=== PATIENT | female | born 1955 | race Caucasian/White ===

== ENCOUNTER 2025-09-23 09:11 | Inpatient (IN) | payer MEDICARE, MEDICAID, SELFPAY ==
[2025-09-23] VITALS (11 sets, daily range): BP systolic 161–199; BP diastolic 76–144; PULSE 90–105; RESP 16–32; TEMP 36.5–37.2; O2SAT 94–99; BMI 28.3
--- NOTE | 2025-09-23 09:13 | EKG_ITS ---
[facility] Test Date: 2025-09-23 Pat Name: CHANTEL GILBERT Department: Room: - Gender: Female Food Service Aide: : 1955 Requested By: Demetri Field Order Number: [id number] Reading MD: Demetri Field Measurements Intervals Jeffers Rate: 92 P: 54 DE: 182 QRS: 7 QRSD: 94 T: -15 QT: 363 QTc: 451 Interpretive Statements SINUS RHYTHM NONSPECIFIC ST & T-WAVE ABNORMALITY No previous ECG available for comparison /store/S0/[id number]/ecg/[id number].pdf
--- NOTE | 2025-09-23 09:13 | XR_ITS ---
Examination: CT brain head without contrast. 2-D sagittal coronal reconstructions Date and time of exam: September 23, 2025, 0918 hours INDICATIONS: Stroke alert, onset focal neurologic deficit including left-sided body weakness generalized weakness this morning CTDI: vol (mGy): 47.9 DLP: (mGycm): 896 Technique: Multiple CT axial sections of the brain have been obtained, 5 mm slice thickness. Contrast has not been administered. 2-D sagittal, coronal reconstructions have been obtained Low dose protocols were performed. One or more of the following dose reduction techniques were used; automated exposure control, adjustment of the mA and/or KV according to patient size, use of iterative reconstruction technique. Findings: No significant ventricular enlargement. Intra-axial or extra-axial hemorrhage density is not seen. No mass effect or midline shift Basal cisterns are not remarkable. Fourth ventricle is midline. Cranial vault intact. Impression: Negative for acute hemorrhage, mass effect or midline shift
--- NOTE | 2025-09-23 09:13 | XR_ITS ---
EXAMINATION: AP chest single view TECHNIQUE: AP portable semiupright chest single view INDICATIONS: Stroke alert this morning FINDINGS: Normal heart size No aspiration pneumonia Mild elevation right hemidiaphragm Moderate osteopenia IMPRESSION: No aspiration pneumonia
--- NOTE | 2025-09-23 09:13 | XR_ITS ---
Examination: CTA carotids with intravenous contrast CTA brain, head with intravenous contrast. 2-D sagittal, coronal reconstructions. 3-D reconstructions. Exam date and time: September 23, 2025, 0928 hours INDICATIONS: Stroke alert this morning, onset focal neurologic deficit including left-sided body weakness generalized weakness CTDI: vol (mGy) 11.7 DLP: (mGycm) 477 Technique: Multiple CTA axial brain, head carotid images post intravenous contrast injection 75 cc, [id number]. 2-D sagittal, coronal reconstructions. 3-D reconstructions, 3-D post processing including vascular maximum intensity projection images. Low dose protocols were performed. One or more of the following dose reduction techniques were used; automated exposure control, adjustment of the mA and/or KV according to patient size, use of iterative reconstruction technique. Findings: Multiple right thyroid nodules, the largest 11 mm, isthmus solid nodule, enlarged right thyroid No significant, carotid carotid bifurcation or internal carotid artery stenoses Dominant left vertebral artery in the neck with no critical stenoses Intracranial vertebral arteries field Basilar artery is attenuated with areas of irregularity but no large vessel occlusion Posterior cerebral branches show irregularity and focal areas of moderate narrowing but no large vessel occlusions Juxtasellar and supraclinoid portions internal carotid arteries intact Left M1 middle cerebral artery segment shows significant areas of irregularity, no large vessel occlusions involving middle cerebral or anterior cerebral arteries IMPRESSION: Right thyromegaly, multiple thyroid nodules No significant neck arterial stenoses Basilar artery is attenuated with areas of irregularity but no large vessel occlusion Left M1 segment middle cerebral artery shows significant areas of irregularity but no large vessel occlusions involving middle cerebral or anterior cerebral artery branches
--- NOTE | 2025-09-23 09:26 | EDNOTE_ITS ---
Neuro Symptoms Deficit-RME/HPI General Chief Complaint: Weakness Stated Complaint: POSSIBLE STROKE Time Seen by Provider: 09/23/25 09:26 Arrival date/time: 09/23/25 09:11 RME / HPI RME / HPI Narrative: See MDM for Dr. Padron's HPI documentation. Related Data Allergies Allergy/AdvReac Type Severity Reaction Status Date / Time No Known Allergies Allergy Verified 09/23/25 09:41 Review of Systems Review of Systems Systems Reviewed: All systems reviewed, normal except as documented Past Medical History Past Medical History MUSCULOSKELETAL: Positive Rheumatoid Arthritis Family History FAMILY HISTORY: Negative Family Cardiac Disorders Surgical History SURGICAL: Negative Endocrine Surgery, Ear Surgery, Abdominal Surgery, Nephrectomy, Joint Replacement or Neurologic Surgery Social History SMOKING STATUS: Never smoker ED Exam Narrative Physical exam: See MDM for Dr. Padron's physical exam documentation. Course Quality Measures Suspected type of Stroke: Non Acute Last known well (date): 09/22/25 Last known well (time): 22:00 Tenecteplase given: Reason(s) TPA not given: Outside the time window not given stroke Orders Category Date Time Status Bedside Blood Glucose NOW Care 09/23/25 09:13 Active Bedside COVID-19 Antigen Test NOW Care 09/23/25 09:14 Active COVID-19 Screening Questionnaire NOW Care 09/23/25 11:17 Active Journeyman Painter NOW Care 09/23/25 09:13 Active Continuous Pulse Oximetry NOW Care 09/23/25 09:13 Completed Decision to Admit X1 Care 09/23/25 11:17 Completed EKG (ED ONLY) *Do not use* NOW Care 09/23/25 09:13 Completed Glucose [Bedside Blood Glucose] NOW Care 09/23/25 10:52 Active In and Out Catheter NEEDED Care 09/23/25 09:13 Active Insert IV NOW Care 09/23/25 09:13 Active NIH Stroke Scale now Care 09/23/25 09:13 Active NPO NOW Care 09/23/25 09:13 Active Nurse Swallow Screen x1 Care 09/23/25 09:13 Active Consult to Neurology / Tele-Neurology Routine Cons 09/23/25 09:[address] angio stroke protocol Stat Exams 09/23/25 09:[address] stroke protocol Stat Exams 09/23/25 09:13 Completed EKG (ED Only) Stat Exams 09/23/25 09:13 Draft XR chest 1V portable Stat Exams 09/23/25 09:13 Completed Alcohol, Blood Medical Stat Lab 09/23/25 09:16 Completed Arterial Blood Gas Stat Lab 09/23/25 10:36 Completed B-Type Natriuretic Peptide Stat Lab 09/23/25 09:16 Completed Beta Hydroxybutyrate Stat Lab 09/23/25 10:40 Completed Blood Culture (Lab) Stat Lab 09/23/25 10:35 Received CBC Stat Lab 09/23/25 09:16 Completed CRP [C-Reactive Protein] Stat Lab 09/23/25 09:16 Completed Comprehensive Metabolic Panel Stat Lab 09/23/25 09:16 Completed Drug Screen,Urine Stat Lab 09/23/25 10:56 Completed ESR [Sed Rate (ESR)] Stat Lab 09/23/25 09:16 Completed Hemoglobin A1C [Glycohemoglobin w (eAG)] Stat Lab 09/23/25 10:40 Completed Influenza A & B Rapid Panel Stat Lab 09/23/25 10:00 Completed Lactate (Lactic Acid) Stat Lab 09/23/25 09:16 Completed Magnesium Stat Lab 09/23/25 09:16 Completed Partial Thromboplastin Time Stat Lab 09/23/25 09:16 Completed Procalcitonin Stat Lab 09/23/25 09:16 Completed Prothrombin Time with INR Stat Lab 09/23/25 09:16 Completed TSH [Thyroid Stimulating Hormone] Stat Lab 09/23/25 09:16 Completed Troponin I Stat Lab 09/23/25 09:16 Completed Urinalysis, C/S if Indicated Stat Lab 09/23/25 10:56 Completed Labetalol IV [Trandate IV] Med 09/23/25 09:13 Discontinued 10 mg IVP Q15M PRN Ondansetron Inj [Zofran Inj] Med 09/23/25 09:13 Active 4 mg IVP Q4HR PRN Sodium Chloride 0.9% 1000 ml [Ns] 1,000 ml Med 09/23/25 09:15 Active IV Q10H Oxygen Delivery NOW RT 09/23/25 09:13 Active Vital Signs Vital signs: Vital Signs Pulse Rate 94 09/23/25 09:18 Respiratory Rate 18 09/23/25 09:18 Blood Pressure 199/76 H 09/23/25 09:18 Pulse Oximetry (%) 97 09/23/25 09:18 Oxygen Delivery Method Room Air 09/23/25 09:18 Fraction of Inspired Oxygen 97 09/23/25 09:18 Pulse ox is 97% on room air which is adequate. Neuro Symptoms / Deficit MDM Narrative MDM Narrative:: This section includes all my notes and documentations, including HPI, PE, and ED course. Demetri Padron MD HPI: 70-year-old female here with possible stroke. History is from the son over the phone. Patient doesn't speak Occitan. Normally, she is not confused and she is ambulatory and independent. Last night, she went to bed around 10 PM normal. This morning about an hour ago (around 8 AM), she called for help because she needed to use the bathroom. But she couldn't get out of bed or stand or walk. He had to carry her to the bathroom. He noted extreme weakness bilaterally and abnormal speech and confusion. ROS: Can't obtain from the patient due to current clinical condition. Physical Exam: General: Appears lethargic. Eyes: Conjunctivae and lids clear. EOMI. PERRL. ENT: No nasal congestion. Neck: Supple. No carotid bruit. No JVD. Heart: RRR. Lungs: No respiratory distress. Decreased air movement. No severe rhonchi, wheezing, rales. Abdomen: Soft and nontender. Legs: No clubbing, cyanosis, edema. Skin: Warm and dry. Neuro: Cranial Nerves II-XII grossly intact. No obvious peripheral motor deficits. Musculoskeletal: All major joints and bones are not tender with no limited ROM. I reviewed EMS notes. I reviewed all diagnostic test results: My interpretation of the EKG is: Sinus rhythm (92 bpm) with nonspecific ST-T changes. My interpretation of the chest x-ray is: NAD My review of the CT head report is: No acute findings My review of the CT head/neck report is: No large vessel occlusion. Blood tests remarkable for ESR 91, Glu 300, lactic acid 6.8. UA showed positive leukocyte esterase, 22 WBC, and 3+ bacteria. ABG showed pH 7.40, pCO2 38, pHCO3 23. Covid/Influenza are negative. At this point, diagnoses include: Stroke-like symptoms UTI Treatment here included: IVF Labetatol 10 mg IV Rocephin 1 gram IV Insulin 5 units SC Heparin 5,000 units SC Plavix 300 mg IV Patient remained stable. I discussed the case with our telehealth neurologist and our hospitalist. About the presentation and exam and diagnostics and treatments here. And need of further care in the hospital. Will accept the patient. Demetri Padron MD Patient data External records reviewed:: EMS form Clinical information provided by:: patient and EMS Social determinants that could affect healthcare access:: none Patient has the following chronic illnesses:: Diabetes How is presenting disease/condition affected by chronic disease/condition?: exacerbated by Evaluation data The following diagnostics were reviewed and interpreted by me:: EKG tracing(s) (My interpretation of the EKG is: Sinus rhythm (92 bpm) with nonspecific ST-T changes. Demetri Padron MD) Lab and/or radiology exams considered but not ordered:: None Interpretation Summary: I reviewed all diagnostic test results: My interpretation of the EKG is: Sinus rhythm (92 bpm) with nonspecific ST-T changes. My interpretation of the chest x-ray is: NAD My review of the CT head report is: No acute findings My review of the CT head/neck report is: No large vessel occlusion. Blood tests remarkable for ESR 91, Glu 300, lactic acid 6.8. UA showed positive leukocyte esterase, 22 WBC, and 3+ bacteria. ABG showed pH 7.40, pCO2 38, pHCO3 23. Covid/Influenza are negative. Medications / Prescriptions Medications or Prescriptions considered but not ordered:: None Medication administrations:: Medication Administration History Acetaminophen (Acetaminophen 325 Mg Tablet) 650 mg PO Q6H PRN PRN Reason: Fever >100.3 or Mild Pain 1-3 Stop: 10/23/25 11:40 Acetaminophen (Acetaminophen Supp 650 Mg Supp) 650 mg [place] Q6H PRN; Protocol PRN Reason: PAIN SCALE 1-3 (mild Stop: 10/23/25 11:40 Aspirin (Aspirin Ec 81 Mg Tabec) 81 mg PO QDAY [facility]NEY Stop: 10/24/25 08:59 Atorvastatin Calcium (Atorvastatin Calcium 20 Mg Tablet) 80 mg PO HS BRITNEY Stop: 10/23/25 20:59 Clopidogrel Bisulfate (Clopidogrel Bisulfate 75 Mg Tablet) 75 mg PO QDAY [facility] Stop: 10/24/25 08:59 Dextrose (Dextrose 50%-Water Inj 50 Ml Syringe) 25 ml IV Q15MIN PRN PRN Reason: BG 50-70 responsive npo pt Stop: 10/23/25 15:32 Dextrose (Dextrose 50%-Water Inj 50 Ml Syringe) 50 ml IV Q15MIN PRN PRN Reason: BG <50 OR BG <70 & pt unresponsive Stop: 10/23/25 15:32 Glucagon (Glucagon Inj 1 Mg Vial) 1 mg IM Q15MIN PRN PRN Reason: BG <70, and no IV access Heparin Sodium (Porcine) (Heparin Sod Inj 5000 Unit/Ml Vial) 5,000 unit SC Q8HR BRITNEY Stop: 10/07/25 13:59 Last Admin: 09/23/25 13:59 Dose: 5,000 unit Documented By: BY Co-signed By: KODY Sodium Chloride (Ns) 1,000 mls @ 100 mls/hr IV Q10H [facility] Stop: 10/23/25 09:14 Last Admin: 09/23/25 09:50 Dose: 100 mls/hr Documented By: SOWMYA Ceftriaxone Sodium/Dextrose (Rocephin/D5w 1gm Iv Premix) 1 gm in 50 mls @ 100 mls/hr IV QDAY [facility] Stop: 10/01/25 08:59 Insulin Human Lispro (Insulin Lispro (Admelog) 1 Unit/0.01 Ml Unit) 0 unit SC ACHS [facility]; Protocol Stop: 10/23/25 16:59 Labetalol HCl (Labetalol Inj 5 Mg/Ml Vial 20 Ml) 10 mg IVP Q4HR PRN PRN Reason: Hypertension Stop: 10/23/25 11:46 Lisinopril (Lisinopril 2.5 Mg Tablet) 10 mg PO QDAY [facility] Stop: 10/24/25 08:59 Ondansetron HCl (Ondansetron Inj 2 Mg/Ml Inj 2 Ml) 4 mg IVP Q4HR PRN PRN Reason: NAUSEA OR VOMITING Stop: 10/23/25 09:12 Pantoprazole Sodium (Pantoprazole 40 Mg Tablet) 40 mg PO QDAY [facility] Stop: 10/24/25 08:59 Sennosides (Senna Tablet) 1 tab PO QDAY PRN; Protocol PRN Reason: constipation Stop: 10/23/25 11:40 Discontinued Medications Clopidogrel Bisulfate (Clopidogrel Bisulfate 75 Mg Tablet) 300 mg PO X1 ONE Stop: 09/23/25 12:05 Last Admin: 09/23/25 14:02 Dose: 300 mg Documented By: BY Ceftriaxone Sodium/Dextrose (Rocephin/D5w 1gm Iv Premix) 1 gm in 50 mls @ 100 mls/hr IV X1 ONE Stop: 09/23/25 12:36 Last Infusion: 09/23/25 12:48 Dose: Infused Documented By: Admin: 09/23/25 12:18 Dose: 100 mls/hr Documented By: BY Lactated Ringer's (Lactated Ringers) 1,000 mls @ 500 mls/hr IV .Q2H ONE Stop: 09/23/25 14:06 Last Infusion: 09/23/25 14:29 Dose: Infused Documented By: Admin: 09/23/25 12:29 Dose: 500 mls/hr Documented By: BY Ceftriaxone Sodium/Dextrose (Rocephin/D5w 1gm Iv Premix) 1 gm in 50 mls @ 100 mls/hr IV QDAY [facility] Stop: 09/30/25 15:30 Insulin Human Lispro (Insulin Lispro (Admelog) 1 Unit/0.01 Ml Unit) 5 unit SC X1 ONE Stop: 09/23/25 11:54 Last Admin: 09/23/25 12:21 Dose: 5 unit Documented By: BY Co-signed By: EF Insulin Human Lispro (Insulin Lispro (Admelog) 1 Unit/0.01 Ml Unit) 0 unit SC AC [facility]NEY; Protocol Stop: 10/23/25 16:59 Insulin Human Regular (Insulin Hum Regular 1 Unit/0.01 Ml (Per Unit)) 0 unit SC AC [facility]NEY; Protocol Stop: 10/23/25 16:59 Labetalol HCl (Labetalol Inj 5 Mg/Ml Vial 20 Ml) 10 mg IVP Q15M PRN PRN Reason: HYPER Last Admin: 09/23/25 10:42 Dose: 10 mg Documented By: BY Lisinopril (Lisinopril 20 Mg Tablet) 10 mg PO QDAY [facility] Stop: 10/23/25 15:44 Last Admin: 09/23/25 16:00 Dose: 10 mg Documented By: BY Treatment here during my watch included: IVF Labetatol 10 mg IV Rocephin 1 gram IV Insulin 5 units SC Heparin 5,000 units SC Plavix 300 mg IV Consultations Consultation(s) initiated? (list below): Yes Consultation #1 (Physician, Specialty, Details): I discussed the case with our telehealth neurologist and our hospitalist. About the presentation and exam and diagnostics and treatments here. And need of further care in the hospital. Will accept the patient. Time: 09:55 Diagnosis Neuro Differential Diagnosis: subarachnoid hemorrhage, cerebrovascular accident and transient cerebral ischemia Most likely diagnosis given after review of the tests above:: Stroke-like symptoms UTI Admission Indicated Admission indicated?: indicated Explain why admission is indicated or not indicated:: Strokelike symptoms UTI Admission Request Was there a request for admission?: Yes Admission Attestation Admission request attestation: Discussed case with Hospitalist service regarding admission. Discussed patients ED course, exam findings, labs, and radiology results. Agreed to accept the patient for admission. Disposition Plan Disposition Plan: Admit Discharge Plan Plan Patient Disposition: Admit Acute Care w/in Hospital Problem List Clinical Impression: Stroke-like symptoms, UTI (urinary tract infection)
[2025-09-23 09:31] LABS: Basophils # (Auto) 0.1 Thou/mm3 (0.0-0.2); Basophils % (Auto) 1 % (0-2.5); Eosinophils # (Auto) 0.3 Thou/mm3 (0.0-0.5); Eosinophils % (Auto) 3 % (0-10); Hematocrit 46.3 % (36.0-46.0); Hemoglobin 14.4 g/dL (12.0-16.0); Immature Granulocytes Auto 0.10 Thou/mm3 (0.00-0.00); Lymphocytes # (Auto) 4.2 Thou/mm3 (1.0-4.8); Lymphocytes % (Auto) 35 % (10-50); Mean Corpuscular HGB Conc 31.1 g/dl (31.0-37.0); Mean Corpuscular Hemoglobin 24.7 pg (25.0-35.0); Mean Corpuscular Volume 80 fL (80-100); Monocytes # (Auto) 0.4 Thou/mm3 (0.0-0.8); Monocytes % (Auto) 4 % (0-12); Neutrophils # (Auto) 6.8 Thou/mm3 (1.8-7.7); Neutrophils % (Auto) 57 % (37-80); Nucleated Red Blood Cell # 0.00 Thou/mm3 (0.00-0.00); Nucleated Red Blood Cell % 0 /100 WBC (0); Platelet Count 322 Thou/mm3 (140-440); RDW Standard Deviation 36.9 fL (36.4-46.3); Red Blood Count 5.82 Miln/mm3 (4.00-5.20); White Blood Count 11.9 Thou/mm3 (3.6-11.0)
[2025-09-23 09:44] LABS: Lactate (Lactic Acid) 6.8 mMol/L (0.4-2.0)
[2025-09-23] MEDS: SODIUM CHLORIDE 0.9% 1000 ML 1,000 ML 100 ML IV (09:50)
--- NOTE | 2025-09-23 09:58 | ESCONSULT_ITS ---
Tele Neuro Consultation Consultation Date 09/23/25 Most Recent Vital Signs Last Vital Signs Pulse 97 09/23/25 09:18 Resp 18 09/23/25 09:18 BP 199/76 H 09/23/25 09:18 Pulse Ox 96 09/23/25 09:18 O2 Del Method Room Air 09/23/25 09:18 FiO2 97 09/23/25 09:18 Consultation Narrative [facility] Tele[facility]rology Consult [facility] Patient Name:???Ramu Newsome Date of :???1955 Identification Number:??? Date of Service:???09/23/2025 09:11:18 Diagnosis:?I63.89 - Cerebrovascular accident (CVA) due to other mechanism ([facility]CCC) ?G93.49 - Encephalopathy Multifactorial Impression: ?Ms. Newsome is a 70 year old woman who had generalized weakness based on son's report but on exam appears to have a mild left facial droop and dysarthria concerning for ischemic stroke. However, she is confused about her age despite using a reimbursement counselor. ? ?I did not recommend thrombolytics because she is outside the window based on son's report and she tells me that she is back to normal. I do recommend aspirin 81mg daily, plavix load 300mg once then 75mg daily. Lipid profile and LDL goal <70 with atorvastatin 80mg. A1C measurement with goal <7 with GLP1 or SGLT2 class medication. Please monitor for AF with telemetry/classroom monitor. I recommend PT/OT evaluation and MRI brain. ? ?Please obtain TSH, B12, folate, UA Our recommendations are outlined below. Recommendations: ? Stroke/Telemetry Floor ? Neuro Checks (Q4) ? Bedside Swallow Eval ? DVT Prophylaxis ? IV Fluids, Normal Saline ? Head of Bed 30 Degrees ? Euglycemia and Avoid Hyperthermia (PRN Acetaminophen) ? Bolus with Clopidogrel 300 mg bolus x1 and initiate dual antiplatelet therapy with Aspirin 81 mg daily and Clopidogrel 75 mg daily ? Antihypertensives PRN if Blood pressure is greater than 220/120 or there is a concern for End organ damage/contraindications for permissive HTN. If blood pressure is greater than 220/120 give labetalol PO or IV or Vasotec IV with a goal of 15% reduction in BP during the first 24 hours. Sign Out: ? Discussed with Emergency Department Provider Advanced Imaging: Advanced imaging has been ordered. Results pending. Metrics: Last Known Well: 09/22/2025 22:00:00 Dispatch Time: 09/23/2025 09:11:18 Arrival Time: 09/23/2025 09:10:00 Initial Response Time: 09/23/2025 09:14:23Symptoms: weakness and left facial droop. Initial patient interaction: 09/23/2025 09:28:00 NIHSS Assessment Completed: 09/23/2025 09:32:06Patient is not a candidate for Thrombolytic. Thrombolytic Medical Decision: 09/23/2025 09:32:06Patient was not deemed candidate for Thrombolytic because of following reasons: LKW outside 4.[address] Head: I personally reviewed all the CT images that were available to me and it showed: no hemorrhage Primary Provider Notified of Diagnostic Impression and Management Plan on: 09/23/2025 09:55:55 History of Present Illness:Patient is a 70 year old Female. Patient was brought by EMS for symptoms of weakness and left facial droop. 70 year old woman presents to the ED by EMS from home after she called her some upon awakening this morning at 8am with generalized weakness and needed to be carried to the bathroom. EMS was bringing her to the hospital and noticed a left facial droop. The patient tells me that she feels fine now and has no complaints Past Medical History: ?Diabetes Mellitus Other PMH:? arthritis Medications: Anticoagulant use:??Unknown Antiplatelet use:?Unknown Reviewed EMR for current medications Allergies:? Reviewed Social History: Drug Use: No Family History: There is no family history of premature cerebrovascular disease pertinent to this consultation ROS : 14 Points Review of Systems was performed and was negative except mentioned in HPI. Past Surgical History: There Is No Surgical History Contributory To Today?s Visit Examination: BP(199/96),?Pulse(96),?Blood Glucose(272) 1A: Level of Consciousness - Alert; keenly responsive?+ 0 1B: Ask Month and Age - 1 Question Right?+ 1 1C: Blink Eyes & Squeeze Hands - Performs Both Tasks?+ 0 2: Test Horizontal Extraocular Movements - Normal?+ 0 3: Test Visual Martínez - No Visual Loss?+ 0 4: Test Facial Palsy (Use Grimace if Obtunded) - Minor paralysis (flat nasolabial fold, smile asymmetry)?+ 1 5A: Test Left Arm Motor Drift - No Drift for 10 Seconds?+ 0 5B: Test Right Arm Motor Drift - No Drift for 10 Seconds?+ 0 6A: Test Left Leg Motor Drift - No Drift for 5 Seconds?+ 0 6B: Test Right Leg Motor Drift - No Drift for 5 Seconds?+ 0 7: Test Limb Ataxia (FNF/Heel-De Anda) - No Ataxia?+ 0 8: Test Sensation - Normal; No sensory loss?+ 0 9: Test Language/Aphasia - Normal; No aphasia?+ 0 10: Test Dysarthria - Mild-Moderate Dysarthria: Slurring but can be understood?+ 1 11: Test Extinction/Inattention - No abnormality?+ 0 NIHSS Score:?3 Pre-Morbid Modified Brien Scale: Unable to assess Spoke with :?Dr Padron This consult was conducted in real time using interactive audio and video technology. Patient was informed of the technology being used for this visit and agreed to proceed. Patient located in hospital and provider located at home/office setting. Patient is being evaluated for possible acute neurologic impairment and high probability of imminent or life-threatening deterioration. I spent total of 45 minutes providing care to this patient, including time for face to face visit via telemedicine, review of medical records, imaging studies and discussion of findings with providers, the patient and/or family. Dr Jason Chamorro [facility] For Inpatient follow-up with [facility] physician please call [facility] at . As we are not an outpatient service for any post hospital discharge needs please contact the hospital for assistance. If you have any questions for the [facility] physicians or need to reconsult for clinical or diagnostic changes please contact us via [facility] at . Non-radiologist review of imaging performed to assist with emergent clinical decision-making. Remote physician workstations do not possess the same resolution, calibration, or diagnostic capabilities as hospital-based radiology reading stations, and formal radiologist read is necessary. Signature :?Jason Chamorro
[2025-09-23 10:05] LABS: INR 1.0 (0.9-1.3); Partial Thromboplastin Time 24.9 Seconds (22.0-36.0); Prothrombin Time 10.6 Seconds (9.0-12.2)
[2025-09-23 10:13] LABS: Sed Rate (ESR) 91 mm/hr (0-30)
[2025-09-23 10:37] LABS: Alanine Aminotransferase 26 U/L (10-49); Albumin, Serum 4.9 gm/dL (3.4-4.8); Albumin/Globulin Ratio 1.4 (1.2-2.2); Alcohol, Blood Medical < 3.0 mg/dL (0-10.0); Alkaline Phosphatase 83 U/L (46-116); Anion Gap 17 (7-16); Aspartate Amino Transferase 35 U/L (0-34); BUN/Creatinine Ratio 11 Ratio (12-20); Bilirubin,Total 0.4 mg/dL (0.3-1.2); Blood Urea Nitrogen 11 mg/dL (9-23); C-Reactive Protein < 0.5 mg/dL (0.0-0.9); Calcium 10.1 mg/dL (8.3-10.6); Calcium (Corrected) 10.1 mg/dL (8.5-10.1); Carbon Dioxide 21.0 mMol/L (20.0-31.0); Chloride 101 mMol/L (98-107); Creatinine (Component) 1.0 mg/dL (0.6-1.3); Estimated Creatinine Clearance 44.9 mL/min (>60); Globulin 3.6 gm/dL (2.3-3.5); Glucose 300 mg/dL (74-106); Magnesium 1.6 mg/dL (1.6-2.6); Osmolality,Calculated 287 (275-295); Potassium 3.8 mMol/L (3.4-5.1); Procalcitonin < 0.04 ng/ml (0.0-0.49); Sodium 139 mMol/L (136-145); Thyroid Stimulating Hormone 0.87 uIU/mL (0.55-4.78); Total Protein 8.5 gm/dL (5.7-8.2); Troponin I < 0.002 ng/mL (0.0-0.045); eGFR 60 See Note
[2025-09-23] MEDS: LABETALOL INJ 5 MG/ML VIAL 20 ML 10 MG IVP (10:42)
[2025-09-23 10:51] LABS: Base Excess -1 (-3-3); HCO3 23 mEq/L (20-26); Inspired Oxygen, FIO2 21 %; O2 Saturation 93 % (91-98); PCO2 38 mmHg (32.0-48.0); PO2 67 mmHg (83-108); pH, Arterial 7.40 (7.35-7.45)
[2025-09-23 10:53] LABS: Allen Test Performed/OK; Puncture Site Left Radial
[2025-09-23 11:04] LABS: Collection Type, Urine Clean Catch
[2025-09-23 11:10] LABS: Beta Hydroxybutyrate 0.3 mmol/L (<0.6)
[2025-09-23 11:10] LABS: B-Type Natriuretic Peptide 36 pg/mL (0-100)
[2025-09-23 11:22] LABS: Influenza A Ag Negative; Influenza B Ag Negative
[2025-09-23 11:29] LABS: Glucose Estimated Average 240 mg/dL (80-131); Hemoglobin A1C 10.0 % Hgb (4.8-6.0)
--- NOTE | 2025-09-23 11:46 | ECHO_ITS ---
Patient Info Name: Ramu Newsome Age: 70 years : 1955 Gender: Female Ht: 161 cm Wt: 80 kg BSA: 1.92 m2 BP: 182 / 119 mmHg HR: 100 bpm Exam Date: 09/23/2025 2:23 PM Admit Date: 09/23/2025 Site: [facility] Room Number: ED Patient Status: I Exam Type: CA echo doppler complete Toy Mechanic: Yajaira Person Ordering Physician: Romy Correia Study Info Indications Stroke rule out w/ bubble study - Primary Location: [facility] Left Ventricular Outflow Tract Name Value Normal LVOT 2D LVOT Diameter 1.9 cm LVOT Doppler LVOT Peak Velocity 103 cm/s LVOT Mean Gradient 2 mmHg LVOT VTI 18 cm LVOT VTI/AV VTI Ratio 0.7 LVOT Stroke Volume 52 ml Pulmonic Valve Name Value Normal PV Doppler PV Peak Velocity 99 cm/s Mitral Valve Name Value Normal MV Doppler MV Decel [place] 908 cm/s2 MV PHT 38 ms MV Area (PHT) 5.8 cm2 4.0-5.0 MV Diastolic Function MV E Peak Velocity 118 cm/s Tricuspid Valve Name Value Normal TV Regurgitation Doppler TR Peak Velocity 212 cm/s Estimated PAP/RSVP RA Pressure 3 mmHg <=5 PA Systolic Pressure 21 mmHg <36 RV Systolic Pressure 21 mmHg <36 Aortic Valve Name Value Normal AV 2D/MM AV Cusp Sep (MM) 1.4 cm AV Doppler AV Peak Velocity 140 cm/s AV Mean Gradient 4 mmHg AV VTI 26 cm AV Area (Cont Eq VTI) 2.0 cm2 >=3.0 AV Area (Cont Eq Michael) 2.1 cm2 AV DI (Michael) 0.74 AV Regurgitation 2D LVOT Area 2.8 cm2 Ventricles Name Value Normal LV Dimensions 2D/MM IVS Diastolic Thickness (2D) 0.8 cm 0.6-0.9 LVID Diastole (2D) 3.9 cm 3.8-5.2 LVIW Diastolic Thickness (2D) 1.0 cm 0.6-0.9 LVID Systole (2D) 2.6 cm 2.2-3.5 LVOT Diameter 1.9 cm LV Mass (2D Cubed) 105.33 g 67.00-162.00 LV Mass Index (2D Cubed) 55 g/m2 43-95 Relative Wall Thickness (2D) 0.51 <=0.42 IVS/LVIW Diastolic Thickness (2D) 0.80 0.00-1.50 LV Fractional Shortening/Ejection Fraction 2D/MM LV Fractional Shortening (2D) 33 % 27-45 LV EF (2D Teichholz) 63 % Atria Name Value Normal LA Dimensions LA Volume (4C A-L) 56 ml LA Volume (BP A-L) 50 ml Left Ventricle Left ventricular chamber dimension is normal. Left ventricular systolic function is normal with visually estimated ejection fraction of 55-60%. There is concentric remodeling noted in the left ventricle. Left ventricular segmental wall motion is normal. There is normal diastolic function in the left ventricle. Right Ventricle Right ventricular chamber dimension is normal. Right ventricular systolic function is normal. Left Atrium Left atrial chamber dimension is normal. Right Atrium Right atrial chamber dimension is normal. Aortic Valve The aortic valve is trileaflet. There is mild aortic valve sclerosis. There is no aortic valve stenosis with a peak velocity of 140 cm/s, mean gradient of 4 mmHg, and aortic valve area of 2.0 cm2. There is no aortic valve regurgitation. Pulmonic Valve The pulmonic valve is normal. There is no pulmonic valve stenosis. There is no pulmonic regurgitation. Mitral Valve The mitral valve has normal leaflets and thickened leaflets. There is no mitral valve stenosis. There is trace mitral valve regurgitation. Tricuspid Valve The tricuspid valve leaflets are normal. There is no tricuspid valve stenosis. There is trace tricuspid valve regurgitation. No pulmonary hypertension, estimated pulmonary arterial systolic pressure is 21 mmHg and systemic blood pressure of 182 mmHg in systole. Pericardium/Pleural The pericardium appears normal. There is no pericardial effusion. No pleural effusion visualized. Inferior Vena Cava Normal inferior vena cava with >50% collapse upon inspiration consistent with normal right atrial pressure, 3 mmHg. Aorta The aortic measurements are indexed to age and body surface area. The aortic root at the sinus of Valsalva is not well visualized. The prox ascending aorta is not well visualized. Summary 1. Left ventricle size is normal and systolic function is normal. Estimated ejection fraction is 55-60%. There is normal diastolic function. There is concentric remodeling noted. 2. The right ventricle size is normal and systolic function is normal. Estimated RVPS is 21 mmHg. 3. There is mild aortic valve sclerosis with no stenosis and no regurgitation. 4. There is trace mitral valve regurgitation. 5. There is trace tricuspid valve regurgitation. 6. Normal IVC with estimated RA pressure 3 mmHg. 7. Bubble study negative for any PFO or ASD. Consider LYDIA if high index of clinical suspicion. Report Signatures Finalized by David Carroll on 09/25/2025 02:52 PM
[2025-09-23 11:57] LABS: Amphetamine/Methamp Scrn,U Negative (Negative); Bacteria,Urine 3+; Barbiturate Screen,Urine Negative (Negative); Benzodiazepines Screen,Urine Negative (Negative); Benzoylecgonine Screen, Ur Negative (Negative); Bilirubin,Urine Negative (Negative); Blood,Urine Negative (Negative); Color,Urine Lt-Yellow (Lt Yel-Yel); Fentanyl Screen,Urine Negative (Negative); Glucose, Urine 4+ (Negative); Ketones,Urine 1+ (Negative); Leukocyte Esterase,Urine Positive (Negative); Nitrite,Urine Negative (Negative); Opiate Screen,Urine Negative (Negative); PH,Urine 5.0 (5.0-7.0); Protein,Urine Negative (Neg - Trace); RBC,Urine < 1 /hpf (0-3); Specific Gravity,Urine 1.018 (1.001-1.035); Squamous Epithelial Cell,Urine 3 /hpf (0-5); THC Screen,Urine Negative (Negative); Urobilinogen,Urine Negative mg/dL (0.0-1.0); WBC,Urine 22 /hpf (0-5)
[2025-09-23 12:04] LABS: Culture Indicated,Urine Yes
[2025-09-23 12:05] LABS: Clarity,Urine Hazy (Clear/Hazy)
[2025-09-23] MEDS: cefTRIAXone/D5w 1gm IV premix 1 GM/50 ML BAG IV (12:18)
[2025-09-23] MEDS: INSULIN LISPRO (AdmeLOG) 1 UNIT/0.01 ML UNIT 5 UNIT SC (12:21)
[2025-09-23 12:23] LABS: Reflex Lactate? Y
[2025-09-23] MEDS: RINGERS LACTATED 1000 ML 1,000 ML 500 ML IV (12:29)
[2025-09-23 13:24] LABS: Lactic Acid, 3 HR 5.3 mMol/L (0.4-2.0)
--- NOTE | 2025-09-23 13:51 | PC.NURSE ---
harsh was ordered naproken, 500mg 1 tab , metformin 1000mgBID, lisinopril 40mg 1 tab daily, simvastatin 20 mg QHS , baclofen 20mg , tylenol prn, [id number] prn, centrum for women, these medications were ordered, but have not been taking for the past 1 yr, has followed up with her provider but refuses to take her meds, per daughter
[2025-09-23] MEDS: HEPARIN SOD INJ 5000 UNIT/ML VIAL SC ×2 (13:59→21:04)
[2025-09-23] MEDS: CLOPIDOGREL BISULFATE 75 MG TABLET 300 MG PO (14:02)
--- NOTE | 2025-09-23 15:52 | ESHP_ITS ---
<Statement entered by Florencio Rubin MD - 09/23/25 19:32> I saw and examined patient personally and supervised PGY 1 resident, Dr. Stallings with formulating a management plan. I agree with the documentation with the exceptions as listed below. Patient is 68-year-old female past medical history significant for hypertension, lcu-[id number]-[id number] diabetes mellitus type 2, hyperlipidemia noncompliant on medication who presents today with a chief complaint of weakness, slurred speech and left facial droop. She was admitted for stroke workup. Plan: 1. CVA rule out 2. Hypertensive emergency?resolving 3. Primary hypertension?uncontrolled 3. Uncontrolled vgr-xclqrtp-ieyhwvslp diabetes mellitus type 2 [10%] 4. Anion gap metabolic acidosis 5. Lactic acidosis 6. Hyperlipidemia 7. Elevated ESR?[address] head and CTA head and neck which showed no signs of hemorrhage or LVO. Teleneurology did not recommend TNK as she was out of the window. She was given Plavix loading dose of 300 mg p.o. x 1. She will be scheduled on aspirin 81 mg daily and clopidogrel 75 mg p.o. daily from tomorrow. Speech therapy, physical therapy, echo were ordered. TSH was 1.4, ESR 90, lactic acid 6.8?>5.3. Patient denies ingestion of any salicylates, acetaminophen, metformin and antifreeze. Patient is not hypotensive, kidney and liver function are normal. Lactated ringer 1L IVF bolus was given and started on normal saline maintenance fluid at 250 cc/h. Uncertain if patient had any age-appropriate cancer screening. If lactate continues to be elevated we will consider further investigation into this. Plan of care discussed with Attending Dr. Saritha Rubin MD PGY 2 Disclaimer: This note was dictated by speech recognition. Minor errors in print room worker may be present due to voice recognition software. Documentation for date of: 09/23/25 HPI History of Present Illness History of present illness: Patient is a [id number] 70-year-old female with a PMH of insulin- independent T2DM noncompliant on metformin, hypertension noncompliant on lisinopril, hyperlipidemia noncompliant on simvastatin, and chronic dizziness on dimenhydrinate who presented on 09/23 with a chief complaint of generalized weakness and altered mental status. Patient's daughter was present at bedside during interview and acted as spectrographer and primary historian. Per daughter, patient apparently began feeling unwell last night and was noted to be hard to rouse this morning by patient's son. Due to patient appearing weak, patient's son assisted her in ambulating to the toilet around 8 AM where she apparently called for help and was observed at this time to have extreme weakness bilaterally with abnormal speech and confusion (normally ambulatory and independent at baseline). Patient's son called patient's daughter who noticed that she appeared pale with new right sided weakness and brought her into the ED. Daughter reports that patient is prescribed metformin but that she stopped taking it after her had about a year ago. Daughter also reports that patient has not recently taken any of her home naproxen or any other salicylate medications. Patient herself denies fever, cough, chest pain, shortness of breath, abdominal pain, urinary symptoms, and lower extremity swelling. PMH: As above PSH: in 1990 for of youngest son Medications: Metformin but not taking, naproxen (no recent use), lisinopril, simvastatin, baclofen, dimenhydrinate Allergies: NKDA FH: Unknown to daughter SH: No history of alcohol use, smoking, or recreational drug use In the ED, vitals showed: BP 199/76 HR 94 RR 18 Temp 97.7 SpO2 97% on room air CBC showed WBC 11.9 and ESR 91. Coagulation panel was WNL. ABG - (pH 7.40, pCO2 38, PaO2 67, HCO3 23). CMP showed anion gap 17, blood glucose 300, hemoglobin A1c 10.0, lactic acid 6.8, corrected calcium 10.1, magnesium 1.6, CRP less than 0.5, BHB 0.3, procalcitonin less than 0.04, TSH 0.87, and free T4 1.40. UA showed 4+ glucose, 1+ ketones, positive leukocyte esterase, urine WBC 22, and 3+ urine bacteria. UDS was grossly negative. Serological studies were negative for influenza A and B. Imagin/31 CXR was negative for aspiration pneumonia. 09/[address] was negative for acute hemorrhage, mass effect, or midline shift. 09/23 head/neck CTA showed no significant neck arterial stenoses. It also showed right thyromegaly with multiple thyroid nodules, attenuation with areas of irregularity in the basilar artery, and significant areas of irregularity in the left M1 segment middle cerebral artery. 09/23 EKG showed normal sinus rhythm of HR 92 with QTc 451. 09/23 echocardiogram was negative for PFO or ASD. Teleneurology was consulted and appreciated left facial droop and slurred speech on neuro exam but did not recommend TNK as patient was outside of the eligible time window. In the ED, patient was given p.o. Plavix loading dose of 300 mg x 1 and a 1 L NS bolus. Patient was admitted for the work-up and management of stroke-like symptoms, hypertensive emergency, anion gap metabolic acidosis with lactic acidosis, and UTI. In-house Neurology (Dr. Martinez) was consulted and is closely following the case. Review of Systems Review of Systems Systems Reviewed: All systems reviewed, normal except as documented Exam Vital Signs Temp Pulse Resp BP Pulse Ox O2 Del Method FiO2 98.2 F 94 19 161/95 H 96 Room Air 97 09/23/25 11:46 09/23/25 15:44 09/23/25 15:44 09/23/25 15:44 09/23/25 15:44 09/23/25 15:44 09/23/25 09:18 Narrative Exam Physical Exam: General: Alert and oriented x 3 (assessed by daughter), no acute distress. Skin: Warm, dry, intact, no obvious rash. Head: Normocephalic, atraumatic. Eye: Normal conjunctiva, PERRL. Mouth/Throat: Edentulous on left side. Oral mucosa moist. Cardiovascular: Slightly tachycardic rate and normal rhythm, no murmur, normal peripheral perfusion, no edema. Slightly cold lower extremities. Respiratory: Lungs are clear to auscultation, respirations non labored, no crackles, no wheezing. Gastrointestinal: Soft, nontender, non-distended. Psychiatric: Cooperative, appropriate affect. Neuro: Mental status: Alert, oriented, appropriately responding to commands. Speech/Language: Speech fluent, no word finding difficulty or paraphasic errors observed. Language-comprehension, repetition and naming intact. No dysarthria noted. Memory: Grossly recent and remote intact. Cranial Nerves: II: No visual deficits and visual martínez full to confrontation. Pupils 3-5 mm size BL round, reactive to light. III, IV, : EOMI, no nystagmus, no ptosis, no APD, smooth pursuit without saccadic intrusion, conjugate horizontal gaze intact. V: Gross sensation intact in V1, V2 and V3 distribution to crude touch. Jaw strength normal. VII: Very mild left facial droop (almost symmetrical), able to smile symmetrically and BL good eye closure. VIII: Hearing intact in both ears per finger rubbing. IX, X: Symmetrical palate elevation, uvula in midline. XI: Symmetrical head rotation and shoulder shrug. IX, XII: Midline tongue protrusion. No fasciculations or atrophy noted. Sensory examination Crude touch in bilateral upper and lower extremity grossly intact. Motor examination No drift in bilateral upper extremity 5/5 strength in bilateral upper extremity 5/5 strength in bilateral lower extremity NIHSS Scoring Criteria 1A: Level of Consciousness - Alert; keenly responsive?+ 0 1B: Ask Month and Age - Both Questions Right?+ 0 1C: Blink Eyes & Squeeze Hands - Performs Both Tasks?+ 0 2: Test Horizontal Extraocular Movements - Normal?+ 0 3: Test Visual Martínez - No Visual Loss?+ 0 4: Test Facial Palsy (Use Grimace if Obtunded) - Not Noted?+ 0 5A: Test Left Arm Motor Drift - No Drift for 10 Seconds?+ 0 5B: Test Right Arm Motor Drift - No Drift for 10 Seconds?+ 0 6A: Test Left Leg Motor Drift - No Drift for 5 Seconds?+ 0 6B: Test Right Leg Motor Drift - No Drift for 5 Seconds?+ 0 7: Test Limb Ataxia (FNF/Heel-De Anda) - No Ataxia?+ 0 8: Test Sensation - Normal; No sensory loss?+ 0 9: Test Language/Aphasia - Normal; No aphasia?+ 0 10: Test Dysarthria - Mild-Moderate Dysarthria: Slurring but can be understood?+ 0 11: Test Extinction/Inattention - No abnormality?+ 0 NIHSS Score:?0 Results: Labs 09/24/25 04:36 09/24/25 04:36 Labs: Short CBC 09/23/25 Range/Units 09:16 WBC 11.9 H (3.6-11.0) Thou/mm3 Hgb 14.4 (12.0-16.0) g/dL Hct 46.3 H (36.0-46.0) % Plt Count 322 (140-440) Thou/mm3 BMP 09/23/25 09:16 Sodium 139 Potassium 3.8 Chloride 101 Carbon Dioxide 21.0 BUN 11 Creatinine 1.0 Glucose 300 H Calcium 10.1 Cardiac Enzymes 09/23/25 Range/Units 09:16 Troponin I < 0.002 (0.0-0.045) ng/mL Liver Function 09/23/25 Range/Units 09:16 Total Bilirubin 0.4 (0.3-1.2) mg/dL AST 35 H (0-34) U/L ALT 26 (10-49) U/L Alkaline Phosphatase 83 (46-116) U/L Albumin 4.9 H (3.4-4.8) gm/dL Urine 09/23/25 Range/Units 10:56 Urine Color Lt-Yellow (Lt Yel-Yel) Urine Clarity Hazy (Clear/Hazy) Urine pH 5.0 (5.0-7.0) Ur Specific Cerulean 1.018 (1.001-1.035) Urine Protein Negative (Neg - Trace) Urine Glucose (UA) 4+ A (Negative) ABG Interpretation ABG results: 09/23/25 10:36 ABG pH 7.40 ABG pCO2 38 ABG pO2 67 L ABG HCO3 23 ABG O2 Saturation 93 ABG Base Excess -1 Quality Measures Quality Measures stroke Suspected type of Stroke: Non Acute Last known well (date): 09/22/25 Last known well (time): 22:00 Tenecteplase given: Reason(s) Tenecteplase not given: Outside the time window not given Rehab services: PT evaluation ordered and Speech Language Pathology eval ordered VTE Prophylaxis: pharmaceutical Antithrombotic by day 2:: not indicated (describe) Statin ordered: <75 y/o high intensity dose Anticoagulation ordered for A-fib or flutter (current or hx): not indicated Advance care planning discussed with:: patient and child Medications Home Medications and Allergies Home Medications ?Medication ?Instructions ?Recorded ?Confirmed ?Type No Known Home Medications 09/23/2508/26 History Allergies Allergy/AdvReac Type Severity Reaction Status Date / Time No Known Allergies Allergy Verified 09/23/25 09:41 Visit Medications Acetaminophen (Acetaminophen 325 Mg Tablet) 650 mg PO Q6H PRN PRN Reason: Fever >100.3 or Mild Pain 1-3 Stop: 10/23/25 11:40 Acetaminophen (Acetaminophen Supp 650 Mg Supp) 650 mg ID Q6H PRN; Protocol PRN Reason: PAIN SCALE 1-3 (mild Stop: 10/23/25 11:40 Dextrose (Dextrose 50%-Water Inj 50 Ml Syringe) 25 ml IV Q15MIN PRN PRN Reason: BG 50-70 responsive npo pt Stop: 10/23/25 15:32 Dextrose (Dextrose 50%-Water Inj 50 Ml Syringe) 50 ml IV Q15MIN PRN PRN Reason: BG <50 OR BG <70 & pt unresponsive Stop: 10/23/25 15:32 Glucagon (Glucagon Inj 1 Mg Vial) 1 mg IM Q15MIN PRN PRN Reason: BG <70, and no IV access Heparin Sodium (Porcine) (Heparin Sod Inj 5000 Unit/Ml Vial) 5,000 unit SC Q8HR BRITNEY Stop: 10/07/25 13:59 Last Admin: 09/23/25 13:59 Dose: 5,000 unit Sodium Chloride (Ns) 1,000 mls @ 100 mls/hr IV Q10H BRITNEY Stop: 10/23/25 09:14 Last Admin: 09/23/25 09:50 Dose: 100 mls/hr Ceftriaxone Sodium/Dextrose (Rocephin/D5w 1gm Iv Premix) 1 gm in 50 mls @ 100 mls/hr IV QDAY BRITNEY Stop: 10/01/25 08:59 Insulin Human Lispro (Insulin Lispro (Admelog) 1 Unit/0.01 Ml Unit) 0 unit SC [facility]; Protocol Stop: 10/23/25 16:59 Insulin Human Regular (Insulin Hum Regular 1 Unit/0.01 Ml (Per Unit)) 0 unit SC [facility]; Protocol Stop: 10/23/25 16:59 Labetalol HCl (Labetalol Inj 5 Mg/Ml Vial 20 Ml) 10 mg IVP Q15M PRN PRN Reason: HYPER Last Admin: 09/23/25 10:42 Dose: 10 mg Labetalol HCl (Labetalol Inj 5 Mg/Ml Vial 20 Ml) 10 mg IVP Q4HR PRN PRN Reason: Hypertension Stop: 10/23/25 11:46 Lisinopril (Lisinopril 20 Mg Tablet) 10 mg PO QDAY BRITNEY Stop: 10/23/25 15:44 Ondansetron HCl (Ondansetron Inj 2 Mg/Ml Inj 2 Ml) 4 mg IVP Q4HR PRN PRN Reason: NAUSEA OR VOMITING Stop: 10/23/25 09:12 Pantoprazole Sodium (Pantoprazole 40 Mg Tablet) 40 mg PO QDAY BRITNEY Stop: 10/24/25 08:59 Sennosides (Senna Tablet) 1 tab PO QDAY PRN; Protocol PRN Reason: constipation Stop: 10/23/25 11:40 Discontinued Medications Clopidogrel Bisulfate (Clopidogrel Bisulfate 75 Mg Tablet) 300 mg PO X1 ONE Stop: 09/23/25 12:05 Last Admin: 09/23/25 14:02 Dose: 300 mg Ceftriaxone Sodium/Dextrose (Rocephin/D5w 1gm Iv Premix) 1 gm in 50 mls @ 100 mls/hr IV X1 ONE Stop: 09/23/25 12:36 Last Admin: 09/23/25 12:18 Dose: 100 mls/hr Lactated Ringer's (Lactated Ringers) 1,000 mls @ 500 mls/hr IV .Q2H ONE Stop: 09/23/25 14:06 Last Admin: 09/23/25 12:29 Dose: 500 mls/hr Ceftriaxone Sodium/Dextrose (Rocephin/D5w 1gm Iv Premix) 1 gm in 50 mls @ 100 mls/hr IV QDAY BRITNEY Stop: 09/30/25 15:30 Insulin Human Lispro (Insulin Lispro (Admelog) 1 Unit/0.01 Ml Unit) 5 unit SC X1 ONE Stop: 09/23/25 11:54 Last Admin: 09/23/25 12:21 Dose: 5 unit Assessment & Plan Plan Patient is a [id number] 70-year-old female with a PMH of insulin- independent T2DM noncompliant on metformin, hypertension noncompliant on lisinopril, hyperlipidemia noncompliant on simvastatin, and chronic dizziness on dimenhydrinate who presented on 09/23 with a chief complaint of generalized weakness and altered mental status. Patient was admitted for the work-up and management of stroke-like symptoms (no TNK administered), hypertensive emergency, anion gap metabolic acidosis with lactic acidosis, and UTI. In-house Neurology (Dr. Martinez) was consulted and is closely following the case. #CVA Per documentation by Teleneurology, patient initially presented with slurred speech and left facial droop (NIHSS 3) but this has seemed to resolve by time of this remote mortgage underwriter's interview (NIHSS 0) Per daughter, patient also seemed to have new right-sided weakness that is not present at baseline 09/23 CT head and CTA head/neck both negative for signs of hemorrhage or LVO TNK not administered as LKWT was 8 PM and patient was outside eligible time window Given PO Plavix loading dose of 300 mg x 1 in the ED UA suggestive of possible UTI although patient denies any urinary symptoms Dx: -Ordered HgbA1c, showed 10.0 -Ordered lipid panel, showed ___ -Ordered TSH and free T4, showed 0.87 and 1.40 (both WNL) -Ordered B12 and folate levels, showed ___ -09/23 echocardiogram negative for PFO or ASD -09/23 stroke protocol brain MRI showed ___ Rx: -PO aspirin 81 mg daily and PO Plavix 75 mg daily -PO atorvastatin 80 mg daily -Permissive HTN without BP intervention unless SBP>220 or DBP>120 or concern for end-organ damage in which case IV labetalol or IV Vasotec with goal of 15% reduction in BP during the first 24 hours -HOB elevation 30 degrees -Bedside swallow evaluation -Euglycemia with ISS and avoid hyperthermia with PO acetaminophen 650 mg prn -Ordered PT and speech therapy -Neurology (Dr. Martinez) consulted, appreciate recommendations #Hypertensive emergency, resolving #Primary hypertension, uncontrolled i/s/o medication non-compliance 09/23 admission BP 199/76 with signs of end-organ damage including altered mental status and lactic acidosis Patient apparently has home medication of lisinopril but has not taken it since about a year ago Rx: -Per stroke protocol, permissive HTN without BP intervention unless SBP>220 or DBP>120 or concern for end-organ damage in which case IV labetalol or IV Vasotec with goal of 15% reduction in BP during the first 24 hours -PO lisinopril 10 mg qD starting tomorrow -IV labetalol 10 mg prn for SBP>180 or DBP>120 after conclusion of permissive HTN period #Bfk-germoxa-gxgdtqngi diabetes mellitus type 2, uncontrolled i/s/o medication non-compliance [10%] 09/23 admission blood glucose of 300, BHB 0.3 (WNL) Patient reportedly has T2DM but has not taken her home metformin since about a year ago Dx: -HgbA1c this admission 10.0 Rx: -ISS #Anion gap metabolic acidosis #Lactic acidosis 09/23 admission lactic acid 6.8 (later down-trended to 5.3) with anion gap of 17 Rx: -Continue to monitor and treat suspected underlying causes #UTI 09/23 admission UA suggestive of UTI (3+ bacteria, positive LE) but patient denies urinary symptoms Dx: -09/23 reflex UCx showed ___ Rx: -IV ceftriaxone 1 g daily #Hyperlipidemia Self-reported history with home medication of simvastatin Dx: -Lipid panel as above Rx: -PO atorvastatin 80 mg qHS #Elevated ESR - 91 09/23 admission ESR 91 Rx: -Continue to monitor Hospital Management: Disposition: Admitted to [facility] for stroke protocol, hypertensive emergency, anion gap metabolic acidosis with lactic acidosis, and UTI Diet: Carbohydrate Consistent GI Prophylaxis: PO Protonix 40 mg daily Bowel Prophylaxis: PO Senna 1 tab daily as needed DVT Prophylaxis: Subcutaneous heparin 5000 units every 8 hours CODE STATUS: Full Code I have examined the patient and conferred with my attending, Dr. Melara, and my senior resident, Dr. Rubin, regarding them. Bharath Stallings DO PGY-1 Internal Medicine Attending Provider Attestation/Addendum I have seen and examined the patient. I was physically present for the rivera portions of the services provided including history, physical exam, diagnosis, treatment plans and orders. I agree with assessment and plan of care as documented by residents. After examination of the patient and review of the clinical data I feel that this patient needs admission to the hospital for further treatment/evaluation. Even though this this note was carefully revised there may still be minor errors in print room worker due to voice recognition software. Jarad Melara MD
[2025-09-23 16:26] LABS: Free T4 (Free Thyroxine) 1.40 ng/dL (0.89-1.76)
[2025-09-23 17:15] LABS: Lactate (Lactic Acid) 4.2 mMol/L (0.4-2.0)
[2025-09-23] MEDS: SODIUM CHLORIDE 0.9% 1000 ML 1,000 ML 250 ML IV (17:44)
[2025-09-23 20:11] LABS: Reflex Lactate? Y
[2025-09-23] MEDS: ATORVASTATIN CALCIUM 20 MG TABLET 80 MG PO (21:04)
[2025-09-23 21:25] LABS: Lactate (Lactic Acid) 2.5 mMol/L (0.4-2.0)
[2025-09-24] VITALS (10 sets, daily range): BP systolic 136–188; BP diastolic 93–113; PULSE 83–91; RESP 15–20; TEMP 36.5–37.1; O2SAT 93–99; BMI 25.9; BMI 12.0; BMI 25.8
--- NOTE | 2025-09-24 | XR_ITS ---
Examinations: MRI Brain without intravenous contrast. MRA brain without intravenous contrast. MRA carotids without intravenous contrast 3-D vascular reconstructions Date and time of exam: August 24, 0, 2, 5, 10 30 9:00 a.m. INDICATIONS: Stroke alert September 23, 2025, onset focal neurologic deficit including slurred speech and left facial droop Technique: Multiple axial and sagittal images of the brain have been obtained MRA brain carotid images without contrast obtained, including 3-D postprocessing, vascular maximum intensity projection images Findings: Sellaturcica is not enlarged. The optic chiasm and infundibular stalk are not remarkable. Prepontine and interpeduncular cisterns are not enlarged. No localized enlargement of the medulla or rolanda. Fourth ventricle and cerebellar tonsils normal in position. Subacute hemorrhage is not seen. Fourth ventricle is midline. Mass in the cerebellopontine angle region is not evident. 7th and 8th nerve complexes exhibits symmetry. Globes are symmetrical with no retro-orbital mass. Increased white matter signal prominent Diffusion-weighted images demonstrate 15 mm focus restricted diffusion left brainstem pontine level Mass-effect upon the ventricular system is not identified. MRA carotid images no gross carotid stenoses. 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
[2025-09-24 00:21] LABS: Reflex Lactate? Y
[2025-09-24 01:06] LABS: Lactic Acid, 3 HR 1.7 mMol/L (0.4-2.0)
[2025-09-24 05:16] LABS: Lactate (Lactic Acid) 2.1 mMol/L (0.4-2.0)
[2025-09-24 05:26] LABS: Basophils # (Auto) 0.1 Thou/mm3 (0.0-0.2); Basophils % (Auto) 1 % (0-2.5); Eosinophils # (Auto) 0.2 Thou/mm3 (0.0-0.5); Eosinophils % (Auto) 2 % (0-10); Hematocrit 38.1 % (36.0-46.0); Hemoglobin 12.4 g/dL (12.0-16.0); Immature Granulocytes Auto 0.02 Thou/mm3 (0.00-0.00); Lymphocytes # (Auto) 2.9 Thou/mm3 (1.0-4.8); Lymphocytes % (Auto) 30 % (10-50); Mean Corpuscular HGB Conc 32.5 g/dl (31.0-37.0); Mean Corpuscular Hemoglobin 25.6 pg (25.0-35.0); Mean Corpuscular Volume 79 fL (80-100); Monocytes # (Auto) 0.6 Thou/mm3 (0.0-0.8); Monocytes % (Auto) 6 % (0-12); Neutrophils # (Auto) 5.7 Thou/mm3 (1.8-7.7); Neutrophils % (Auto) 61 % (37-80); Nucleated Red Blood Cell # 0.00 Thou/mm3 (0.00-0.00); Nucleated Red Blood Cell % 0 /100 WBC (0); Platelet Count 254 Thou/mm3 (140-440); RDW Standard Deviation 37.5 fL (36.4-46.3); Red Blood Count 4.84 Miln/mm3 (4.00-5.20); White Blood Count 9.4 Thou/mm3 (3.6-11.0)
[2025-09-24] MEDS: HEPARIN SOD INJ 5000 UNIT/ML VIAL SC ×3 (05:30→21:01)
[2025-09-24 06:03] LABS: Thyroid Stimulating Hormone 0.46 uIU/mL (0.55-4.78)
[2025-09-24 06:34] LABS: Alanine Aminotransferase 18 U/L (10-49); Albumin, Serum 3.9 gm/dL (3.4-4.8); Albumin/Globulin Ratio 1.4 (1.2-2.2); Alkaline Phosphatase 64 U/L (46-116); Anion Gap 11 (7-16); Aspartate Amino Transferase 22 U/L (0-34); BUN/Creatinine Ratio 10 Ratio (12-20); Bilirubin,Total 0.4 mg/dL (0.3-1.2); Blood Urea Nitrogen 7 mg/dL (9-23); Calcium 9.4 mg/dL (8.3-10.6); Calcium (Corrected) 9.5 mg/dL (8.5-10.1); Carbon Dioxide 27.0 mMol/L (20.0-31.0); Cardiac Risk Estimate 4.9 RATIO (3.7-5.6); Chloride 104 mMol/L (98-107); Cholesterol 254 mg/dL (132-200); Creatinine (Component) 0.7 mg/dL (0.6-1.3); Estimated Creatinine Clearance 61.4 mL/min (>60); Globulin 2.8 gm/dL (2.3-3.5); Glucose 173 mg/dL (74-106); HDL Cholesterol 52 mg/dL (40-60); LDL Cholesterol,Calculated 173 mg/dL (0-130); Magnesium 1.7 mg/dL (1.6-2.6); Osmolality,Calculated 285 (275-295); Phosphorous 3.9 mg/dL (2.4-5.1); Potassium 3.6 mMol/L (3.4-5.1); Sodium 142 mMol/L (136-145); Total Protein 6.7 gm/dL (5.7-8.2); Triglycerides 144 mg/dL (30-150); eGFR > 60 See Note
[2025-09-24] MEDS: INSULIN LISPRO (AdmeLOG) 1 UNIT/0.01 ML UNIT SC ×3 (08:10→21:01)
[2025-09-24] MEDS: ASPIRIN EC 81 MG TABEC PO (08:11)
[2025-09-24] MEDS: PANTOPRAZOLE 40 MG TABLET PO (08:11)
[2025-09-24] MEDS: CLOPIDOGREL BISULFATE 75 MG TABLET PO (08:11)
[2025-09-24] MEDS: cefTRIAXone/D5w 1gm IV premix 1 GM/50 ML BAG IV (08:11)
[2025-09-24 08:19] LABS: Reflex Lactate? Y
[2025-09-24] MEDS: Magnesium Sulfate 4 GM Ivpb 4 GM/50 ML BAG IV (08:32)
[2025-09-24] MEDS: POTASSIUM CHLORIDE 10% 20 MEQ/15 ML UDC 40 MEQ PO (08:32)
[2025-09-24 08:41] LABS: Free T4 (Free Thyroxine) 1.36 ng/dL (0.89-1.76)
--- NOTE | 2025-09-24 09:32 | ESPR_ITS ---
<Statement entered by Susanne Muhammad MD - 09/25/25 12:43> Patient was seen and examined by me personally. I have directly supervised and reviewed documentation by the team resident and agree with its findings with any exceptions or additional findings as below. Plan of care was discussed with the attending, Dr. Melara. Patient was seen this morning and it was noted by family that her right-sided weakness is worse than yesterday. Additionally, her speech seems much more impaired, as the patient is only able to have a few words in response to questions. 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 Will continue with aspirin, Plavix, and statin. Echo is still pending. Patient will require aggressive physical and speech therapy, and family is agreeable for patient to discharge to acute rehab once cleared. Patient has not been seeing doctors according to family and has been depressed since the passing of her 1 year ago. Patient may benefit from an antidepressant. Was provided education on the importance of health maintenance and family demonstrated good understanding and support. Susanne Muhammad, PGY-3 Documentation for date of: 09/24/25 Subjective Subjective Interval history: No overnight events. Patient was examined at bedside; they appear A&Ox1 (oriented to name but not time or place) and in NAD. Vitals/labs today significant for BP 167/96, potassium 3.6, blood glucose 300->173, lactic acid 6.8->2.1. Lipid panel has resulted and showed cholesterol 254 and LDL 173. TSH returned WNL at 0.46. 09/24 stroke protocol brain MRI has resulted and showed 15 mm acute infarct of the left brainstem at the pontine level as well as significant cerebral arterial sclerotic disease. Physical exam today was notable for worsened neurological deficits including increased dysarthria, more pronounced left facial droop, and 0/5 strength of RUE and RLE. Patient will be continued on DAPT therapy and high-intensity statin as well as started on PO lisinopril after the 24 hour period of permissive HTN ends. She will also continue receiving IV ceftriaxone for her UTI. A repeat CRP and ESR will be ordered due to concern regarding patient's elevated ESR of 91 upon admission to verify if this is a true reading. Patient will also likely benefit from depression screening via PHQ-9 due to reports that she became non-compliant with her medications after the of her about a year ago. Exam Vital Signs Temp Pulse Resp BP Pulse Ox O2 Del Method FiO2 98.4 F 89 17 188/113 H 95 Room Air 97 09/24/25 08:00 09/24/25 08:11 09/24/25 08:00 09/24/25 08:11 09/24/25 08:00 09/24/25 08:00 09/23/25 09:18 Narrative Exam General: Alert and oriented x 1 (assessed by daughter), no acute distress. Skin: Warm, dry, intact, no obvious rash. Head: Normocephalic, atraumatic. Eye: Normal conjunctiva, PERRL. Mouth/Throat: Edentulous on left side. Oral mucosa moist. Cardiovascular: Slightly tachycardic rate and normal rhythm, no murmur, normal peripheral perfusion, no edema. Slightly cold lower extremities. Respiratory: Lungs are clear to auscultation, respirations non labored, no crackles, no wheezing. Gastrointestinal: Soft, nontender, non-distended. Neuro: More pronounced left facial droop and dysarthria from yesterday. 5/5 strength of LUE and LLE but 0/5 strength of RUE and RLE. Objective Labs 09/24/25 04:36 09/24/25 04:36 Labs: Laboratory Results - last 24 hr 09/23/25 09/23/25 09/23/25 09:16 10:00 10:36 WBC 11.9 H RBC 5.82 H Hgb 14.4 Hct 46.3 H MCV 80 MCH 24.7 L MCHC 31.1 RDW Std Deviation 36.9 Plt Count 322 Neut % (Auto) 57 Lymph % (Auto) 35 Bell % (Auto) 4 Eos % (Auto) 3 Baso % (Auto) 1 Neut # (Auto) 6.8 Lymph # (Auto) 4.2 Bell # (Auto) 0.4 Eos # (Auto) 0.3 Baso # (Auto) 0.1 Immature Gran # (Auto) 0.10 H Absolute Nucleated RBC 0.00 Immature Gran % 1 H Nucleated RBC % 0 ESR 91 H PT 10.6 INR 1.0 APTT 24.9 Puncture Site Left Radial ABG pH 7.40 ABG pCO2 38 ABG pO2 67 L ABG HCO3 23 ABG O2 Saturation 93 ABG Base Excess -1 FiO2 21 Sodium 139 Potassium 3.8 Chloride 101 Carbon Dioxide 21.0 Anion Gap 17 H BUN 11 Creatinine 1.0 Estim Creat Clear Calc 44.9 L eGFR 60 BUN/Creatinine Ratio 11 L Glucose [address] Glu mg/dL Hemoglobin A1c Calculated Osmolality 287 Lactic Acid 6.8 H* Calcium 10.1 Corrected Calcium 10.1 Phosphorus Magnesium 1.6 Total Bilirubin 0.4 AST 35 H ALT 26 Alkaline Phosphatase 83 Troponin I < 0.002 C-Reactive Prot, Quant < 0.5 B-Natriuretic Peptide 36 Total Protein 8.5 H Albumin 4.9 H Globulin 3.6 H Albumin/Globulin Ratio 1.4 Triglycerides Cholesterol LDL Cholesterol, Calc HDL Cholesterol Cholesterol/HDL Ratio Beta-Hydroxybutyrate/Acetoacetate Procalcitonin < 0.04 TSH 0.87 Free T4 1.40 Ur Collection Type Urine Color Urine Clarity Urine pH Ur Specific [place] Urine Protein Urine Glucose (UA) Urine Ketones Urine Blood Urine Nitrite Urine Bilirubin Urine Urobilinogen (Auto) Ur Leukocyte Esterase Urine RBC Urine WBC Ur Squamous Epith Cells Urine Bacteria Ur Culture Indicated? Urine Opiates Screen Urine Fentanyl Screen Ur Barbiturates Screen U Amphetamin/Meth Scrn U Benzodiazepines Scrn U Cocaine Metab Screen U Marijuana (THC) Screen Ethyl Alcohol < 3.0 Influenza A (Rapid) Negative Influenza B (Rapid) Negative 09/23/25 09/23/25 09/23/25 10:40 10:56 13:15 WBC RBC Hgb Hct MCV MCH MCHC RDW Std Deviation Plt Count Neut % (Auto) Lymph % (Auto) Bell % (Auto) Eos % (Auto) Baso % (Auto) Neut # (Auto) Lymph # (Auto) Bell # (Auto) Eos # (Auto) Baso # (Auto) Immature Gran # (Auto) Absolute Nucleated RBC Immature Gran % Nucleated RBC % ESR PT INR APTT Puncture Site ABG pH ABG pCO2 ABG pO2 ABG HCO3 ABG O2 Saturation ABG Base Excess FiO2 Sodium Potassium Chloride Carbon Dioxide Anion Gap BUN Creatinine Estim Creat Clear Calc eGFR BUN/Creatinine Ratio Glucose Estimated Ave Glu mg/dL 240 H Hemoglobin A1c 10.0 H Calculated Osmolality Lactic Acid 5.3 H* Calcium Corrected Calcium Phosphorus Magnesium Total Bilirubin AST ALT Alkaline Phosphatase Troponin I C-Reactive Prot, Quant B-Natriuretic Peptide Total Protein Albumin Globulin Albumin/Globulin Ratio Triglycerides Cholesterol LDL Cholesterol, Calc HDL Cholesterol Cholesterol/HDL Ratio Beta-Hydroxybutyrate/Acetoacetate 0.3 Procalcitonin TSH Free T4 Ur Collection Type Clean Catch Urine Color Lt-Yellow Urine Clarity Hazy Urine pH 5.0 Ur Specific [place] 1.018 Urine Protein Negative Urine Glucose (UA) 4+ A Urine Ketones 1+ A Urine Blood Negative Urine Nitrite Negative Urine Bilirubin Negative Urine Urobilinogen (Auto) Negative Ur Leukocyte Esterase Positive Urine RBC < 1 Urine WBC 22 H Ur Squamous Epith Cells 3 Urine Bacteria 3+ A Ur Culture Indicated? Yes Urine Opiates Screen Negative Urine Fentanyl Screen Negative Ur Barbiturates Screen Negative U Amphetamin/Meth Scrn Negative U Benzodiazepines Scrn Negative U Cocaine Metab Screen Negative U Marijuana (THC) Screen Negative Ethyl Alcohol Influenza A (Rapid) Influenza B (Rapid) 09/23/25 09/23/25 09/24/25 17:06 20:59 00:44 WBC RBC Hgb Hct MCV MCH MCHC RDW Std Deviation Plt Count Neut % (Auto) Lymph % (Auto) Bell % (Auto) Eos % (Auto) Baso % (Auto) Neut # (Auto) Lymph # (Auto) Bell # (Auto) Eos # (Auto) Baso # (Auto) Immature Gran # (Auto) Absolute Nucleated RBC Immature Gran % Nucleated RBC % ESR PT INR APTT Puncture Site ABG pH ABG pCO2 ABG pO2 ABG HCO3 ABG O2 Saturation ABG Base Excess FiO2 Sodium Potassium Chloride Carbon Dioxide Anion Gap BUN Creatinine Estim Creat Clear Calc eGFR BUN/Creatinine Ratio Glucose Estimated Ave Glu mg/dL Hemoglobin A1c Calculated Osmolality Lactic Acid 4.2 H* 2.5 H 1.7 Calcium Corrected Calcium Phosphorus Magnesium Total Bilirubin AST ALT Alkaline Phosphatase Troponin I C-Reactive Prot, Quant B-Natriuretic Peptide Total Protein Albumin Globulin Albumin/Globulin Ratio Triglycerides Cholesterol LDL Cholesterol, Calc HDL Cholesterol Cholesterol/HDL Ratio Beta-Hydroxybutyrate/Acetoacetate Procalcitonin TSH Free T4 Ur Collection Type Urine Color Urine Clarity Urine pH Ur Specific [place] Urine Protein Urine Glucose (UA) Urine Ketones Urine Blood Urine Nitrite Urine Bilirubin Urine Urobilinogen (Auto) Ur Leukocyte Esterase Urine RBC Urine WBC Ur Squamous Epith Cells Urine Bacteria Ur Culture Indicated? Urine Opiates Screen Urine Fentanyl Screen Ur Barbiturates Screen U Amphetamin/Meth Scrn U Benzodiazepines Scrn U Cocaine Metab Screen U Marijuana (THC) Screen Ethyl Alcohol Influenza A (Rapid) Influenza B (Rapid) 09/24/25 04:36 WBC 9.4 RBC 4.84 Hgb 12.4 D Hct 38.1 MCV 79 L MCH 25.6 MCHC 32.5 RDW Std Deviation 37.5 Plt Count 254 D Neut % (Auto) 61 Lymph % (Auto) 30 Bell % (Auto) 6 Eos % (Auto) 2 Baso % (Auto) 1 Neut # (Auto) 5.7 Lymph # (Auto) 2.9 Bell # (Auto) 0.6 Eos # (Auto) 0.2 Baso # (Auto) 0.1 Immature Gran # (Auto) 0.02 H Absolute Nucleated RBC 0.00 Immature Gran % 0 Nucleated RBC % 0 ESR PT INR APTT Puncture Site ABG pH ABG pCO2 ABG pO2 ABG HCO3 ABG O2 Saturation ABG Base Excess FiO2 Sodium 142 Potassium 3.6 Chloride 104 Carbon Dioxide 27.0 Anion Gap 11 BUN 7 L Creatinine 0.7 Estim Creat Clear Calc 61.4 eGFR > 60 BUN/Creatinine Ratio 10 L Glucose [address] Glu mg/dL Hemoglobin A1c Calculated Osmolality 285 Lactic Acid 2.1 H Calcium 9.4 Corrected Calcium 9.5 Phosphorus 3.9 Magnesium 1.7 Total Bilirubin 0.4 AST 22 ALT 18 Alkaline Phosphatase 64 D Troponin I C-Reactive Prot, Quant B-Natriuretic Peptide Total Protein 6.7 Albumin 3.9 D Globulin 2.8 Albumin/Globulin Ratio 1.4 Triglycerides 144 Cholesterol 254 H LDL Cholesterol, Calc 173 H HDL Cholesterol 52 Cholesterol/HDL Ratio 4.9 Beta-Hydroxybutyrate/Acetoacetate Procalcitonin TSH 0.46 L Free T4 1.36 Ur Collection Type Urine Color Urine Clarity Urine pH Ur Specific [place] Urine Protein Urine Glucose (UA) Urine Ketones Urine Blood Urine Nitrite Urine Bilirubin Urine Urobilinogen (Auto) Ur Leukocyte Esterase Urine RBC Urine WBC Ur Squamous Epith Cells Urine Bacteria Ur Culture Indicated? Urine Opiates Screen Urine Fentanyl Screen Ur Barbiturates Screen U Amphetamin/Meth Scrn U Benzodiazepines Scrn U Cocaine Metab Screen U Marijuana (THC) Screen Ethyl Alcohol Influenza A (Rapid) Influenza B (Rapid) ABG Interpretation ABG results: 09/23/25 10:36 ABG pH 7.40 ABG pCO2 38 ABG pO2 67 L ABG HCO3 23 ABG O2 Saturation 93 ABG Base Excess -1 Quality Measures Quality Measures stroke Suspected type of Stroke: Non Acute Last known well (date): 09/22/25 Last known well (time): 22:00 Tenecteplase given: Reason(s) Tenecteplase not given: Outside the time window not given Rehab services: PT evaluation ordered and Speech Language Pathology eval ordered VTE Prophylaxis: pharmaceutical Antithrombotic by day 2:: no, due to drug allergy, refused and not indicated (describe) Statin ordered: <75 y/o high intensity dose Anticoagulation ordered for A-fib or flutter (current or hx): not indicated Advance care planning discussed with:: patient and child Assessment & Plan Assessment Current Active Medications: Generic Name Dose Route Start Last Admin Trade Name Freq PRN Reason Stop Dose Admin Acetaminophen 650 mg 09/23/25 11:41 Acetaminophen 325 Mg Tablet PO 10/23/25 11:40 Q6H PRN Fever >100.3 or Mild Pain 1-3 Acetaminophen 650 mg 09/23/25 11:41 Acetaminophen Supp 650 Mg Supp NM 10/23/25 11:40 Q6H PRN PAIN SCALE 1-3 (mild Protocol Aspirin 81 mg 09/24/25 09:00 09/24/25 08:11 Aspirin Ec 81 Mg Tabec PO 10/24/25 08:59 81 mg QDAY BRITNEY Administration Atorvastatin Calcium 80 mg 09/23/25 21:00 09/23/25 21:04 Atorvastatin Calcium 20 Mg Tablet PO 10/23/25 20:59 80 mg HS BRITNEY Administration Clopidogrel Bisulfate 75 mg 09/24/25 09:00 09/24/25 08:11 Clopidogrel Bisulfate 75 Mg Tablet PO 10/24/25 08:59 75 mg QDAY BRITNEY Administration Dextrose 25 ml 09/23/25 15:33 Dextrose 50%-Water Inj 50 Ml Syringe IV 10/23/25 15:32 Q15MIN PRN BG 50-70 responsive npo pt Dextrose 50 ml 09/23/25 15:33 Dextrose 50%-Water Inj 50 Ml Syringe IV 10/23/25 15:32 Q15MIN PRN BG <50 OR BG <70 & pt unresponsive Glucagon 1 mg 09/23/25 15:33 Glucagon Inj 1 Mg Vial IM Q15MIN PRN BG <70, and no IV access Heparin Sodium (Porcine) 5,000 unit 09/23/25 14:00 09/24/25 05:30 Heparin Sod Inj 5000 Unit/Ml Vial SC 10/07/25 13:59 5,000 unit Q8HR BRITNEY Administration Ceftriaxone Sodium/Dextrose 1 gm in 50 mls @ 100 mls/hr 09/24/25 09:00 09/24/25 08:11 Rocephin/D5w 1gm Iv Premix IV 10/01/25 08:59 100 mls/hr QDAY BRITNEY Administration Magnesium Sulfate 4 gm in 50 mls @ 12.5 mls/hr 09/24/25 07:42 09/24/25 08:32 Magnesium Sulfate Ivpb IV 09/24/25 11:41 12.5 mls/hr X1 ONE Administration Influenza Virus Vaccine Quadrival 0.5 ml 09/24/25 11:00 Influenza Virus 0.5 Ml Syringe IMi 09/24/25 11:01 .ONCE ONE Insulin Human Lispro 0 unit 09/23/25 17:00 09/24/25 08:10 Insulin Lispro (Admelog) 1 Unit/0.01 Ml Unit SC 10/23/25 16:59 3 unit ACHS BRITNEY Administration Protocol Labetalol HCl 10 mg 09/23/25 11:47 Labetalol Inj 5 Mg/Ml Vial 20 Ml IVP 10/23/25 11:46 Q4HR PRN Hypertension Lisinopril 10 mg 09/24/25 09:00 09/24/25 08:11 Lisinopril 2.5 Mg Tablet PO 10/24/25 08:59 10 mg QDAY BRITNEY Administration Ondansetron HCl 4 mg 09/23/25 09:13 Ondansetron Inj 2 Mg/Ml Inj 2 Ml IVP 10/23/25 09:12 Q4HR PRN NAUSEA OR VOMITING Pantoprazole Sodium 40 mg 09/24/25 09:00 09/24/25 08:11 Pantoprazole 40 Mg Tablet PO 10/24/25 08:59 40 mg QDAY BRITNEY Administration Sennosides 1 tab 09/23/25 11:41 Senna Tablet PO 10/23/25 11:40 QDAY PRN constipation Protocol Plan Patient is a kby-Abnurtm-rtocnasc 70-year-old female with a PMH of insulin- independent T2DM noncompliant on metformin, hypertension noncompliant on lisinopril, hyperlipidemia noncompliant on simvastatin, and chronic dizziness on dimenhydrinate who presented on 09/23 with a chief complaint of generalized weakness and altered mental status. Patient was admitted for the work-up and management of stroke-like symptoms (no TNK administered), hypertensive emergency, anion gap metabolic acidosis with lactic acidosis, and UTI. In-house Neurology (Dr. Martinez) was consulted and is closely following the case. #CVA Per documentation by Teleneurology, patient initially presented with slurred speech and left facial droop (NIHSS 3) but this has seemed to resolve by time of this property underwriter's interview (NIHSS 0) Per daughter, patient also seemed to have new right-sided weakness that is not present at baseline 09/23 CT head and CTA head/neck both negative for signs of hemorrhage or LVO TNK not administered as LKWT was 8 PM and patient was outside eligible time window Given PO Plavix loading dose of 300 mg x 1 in the ED UA suggestive of possible UTI although patient denies any urinary symptoms Dx: -Ordered HgbA1c, showed 10.0 -Ordered lipid panel, showed cholesterol 254, LDL 173 -Ordered TSH and free T4, showed 0.87 and 1.40 (both WNL) -Ordered B12 and folate levels, showed ___ -09/23 echocardiogram negative for PFO or ASD -09/23 stroke protocol brain MRI showed 15 mm acute infarct of the left brainstem at the pontine level as well as significant cerebral arterial sclerotic disease Rx: -PO aspirin 81 mg daily and PO Plavix 75 mg daily -PO atorvastatin 80 mg daily -HOB elevation 30 degrees -Euglycemia with ISS and avoid hyperthermia with PO acetaminophen 650 mg prn -Ordered PT and speech therapy -Neurology (Dr. Martinez) consulted, appreciate recommendations #Hypertensive emergency, resolving #Primary hypertension, uncontrolled i/s/o medication non-compliance 09/23 admission BP 199/76 with signs of end-organ damage including altered mental status and lactic acidosis Patient apparently has home medication of lisinopril but has not taken it since about a year ago Rx: -Started PO lisinopril 10 mg qD -IV labetalol 10 mg prn for SBP>180 or DBP>120 after conclusion of permissive HTN period #Qms-grgeogp-rvjkaynrx diabetes mellitus type 2, uncontrolled i/s/o medication non-compliance [10%] 09/23 admission blood glucose of 300, BHB 0.3 (WNL) Patient reportedly has T2DM but has not taken her home metformin since about a year ago Dx: -HgbA1c this admission 10.0 Rx: -ISS #Anion gap metabolic acidosis, resolved #Lactic acidosis, improving 09/23 admission lactic acid 6.8 (later down-trended to 5.3) with anion gap of 17 09/24 lactic acid down-trended to 2.6 and anion gap down-trended to 11 Rx: -Continue to monitor and treat suspected underlying causes #UTI 09/23 admission UA suggestive of UTI (3+ bacteria, positive LE) but patient denies urinary symptoms Dx: -09/23 reflex UCx showed ___ Rx: -IV ceftriaxone 1 g daily #Hyperlipidemia Self-reported history with home medication of simvastatin Dx: -Lipid panel as above Rx: -PO atorvastatin 80 mg qHS #Elevated ESR - 91 09/23 admission ESR 91 Dx: -09/24 repeat CRP and ESR ordered, showed ___ Rx: -Continue to monitor #Major depressive disorder Daughter reports that patient became non-compliant with her medications after the of her about a year ago Dx: -PHQ-9 showed ___ Rx: -PO Lexapro 10 mg qD Hospital Management: Disposition: Admitted to [facility] for stroke protocol, hypertensive emergency, anion gap metabolic acidosis with lactic acidosis, and UTI Diet: Carbohydrate Consistent GI Prophylaxis: PO Protonix 40 mg daily Bowel Prophylaxis: PO Senna 1 tab daily as needed DVT Prophylaxis: Subcutaneous heparin 5000 units every 8 hours CODE STATUS: Full Code I have examined the patient and conferred with my attending, Dr. Melara, and my senior resident, Dr. Muhammad, regarding them. Bharath Stallings DO PGY-1 Internal Medicine Attending Provider Attestation/Addendum I have seen and examined the patient. I was physically present for the rivera portions of the services provided including history, physical exam, diagnosis, treatment plans and orders. I agree with assessment and plan of care as documented by residents. Even though this this note was carefully revised there may still be minor errors in economics instructor due to voice recognition software. Jarad Melara MD
[2025-09-24 09:41] LABS: Lactic Acid, 3 HR 2.6 mMol/L (0.4-2.0)
[2025-09-24] MEDS: SODIUM CHLORIDE 0.9% 1000 ML 1,000 ML 125 ML IV ×2 (11:23→19:37)
--- NOTE | 2025-09-24 11:59 | PC.NURSE ---
Dr Melara at bedside lizbeth with residents at this time assessing neuro status.
--- NOTE | 2025-09-24 13:01 | PCS.ST ---
Pt would benefit from acute rehab to help with dysarthria/ improve her speech intelligibility.
--- NOTE | 2025-09-24 13:45 | PC.NURSE ---
Notified Dr Martinez over the phone of consult for pt. Per md will come see pt today.
--- NOTE | 2025-09-24 13:54 | PC.SS ---
Ramu Newsome is a 70-year-old female admitted to [facility] for CVA R/O, Left facial drop. SS conducted bedside contact with the patient to complete initial assessment and to discuss discharge planning. Role and reason explained, pt was resting so Son Alan Newsome [phone] answered on her behalf. Alan confirmed demographic information. [facility] confirmed surrogate decision maker is his older brother Ky Newsome [phone] as her surrogate decision maker. Alan reports pt has been declining for about a week but prior pt was able to do things independently, no need for any source of DME. Pts PCP is Dr. Pittman ([facility] ([place], [place])). Discharge options discussed and they wish to transition the pt to Acute Rehab #1 choice is [facility] in [place], open to others if they are unavailable, as recommended by PT, Aron. Pt will require transport. No further intervention required at this time, social director would be available to address any further concerns. DC Plan: Acute Rehab Contact: Ky Address: Confirmed on face sheet PCP: Cristal Pittman
[2025-09-24 14:43] LABS: Lactate (Lactic Acid) 1.4 mMol/L (0.4-2.0)
--- NOTE | 2025-09-24 15:26 | PC.SS ---
Acute rehab referral submitted via [facility]
[2025-09-24] MEDS: ATORVASTATIN CALCIUM 20 MG TABLET 80 MG PO (20:56)
--- NOTE | 2025-09-24 23:40 | ESPR_ITS ---
Documentation for date of: 09/24/25 Subjective Subjective Interval history: Patient was seen at the bedside with her family. Continues to have some language disfluency and right-sided weakness including face arm and leg. Exam - Neurology Vital Signs Temp Pulse Resp BP Pulse Ox O2 Del Method FiO2 97.8 F 83 16 162/93 H 95 Room Air 97 09/24/25 20:00 09/24/25 20:00 09/24/25 20:00 09/24/25 20:00 09/24/25 20:00 09/24/25 20:00 09/23/25 09:18 Narrative Exam GENERAL APPEARANCE: Well hydrated, well-nourished in no acute distress. HEENT: Normocephalic, atraumatic, extraocular movements intact. Pupils: Equal reacting to light and accommodation NECK: Supple, no JVD or bruits. CARDIOVASULAR: Heart: S1, S2 heard, regular without S3-S4 or murmur no rubs or gallops. LUNGS/CHEST: Clear to auscultation bilaterally. No rails, rhonchi, or wheezing. Normal inspection. ABDOMEN: Soft, nontender, with normal bowel sounds. No pulsatile masses. No rebound, rigidity, or guarding. Normal inspection and palpation. EXTREMITIES: Normal inspection and palpation. No edema, clubbing or cyanosis. SKIN: Warm and dry without rashes. Normal inspection. MUSCULOSKELETAL: No cervical, thoracic, lumbar or midline bony tenderness. Normal inspection. NEURO: Alert, awake and oriented x2. Cranial nerves: II through XII grossly intact. Speech and language: new onset dysarthria and dysphasia. Motor system: Tone and bulk: Normal: Strength: moves all extremities except the right UE and LE; Mild pronator drift noted. Deep tendon reflexes: 2+ bilaterally symmetrical. Plantar reflex: Downgoing bilaterally. Sensory system: Intact to all modalities of sensation bilaterally. Coordination: Intact to wyihpm-cuei-wxmzu and ilec-mvpc-ofzo test bilaterally. No ataxia, no dysmetria, or dysdiadochokinesia noted. No intention tremors noted. Gait: not tested. No signs of meningeal irritation noted. PSYCHIATRIC: Normal mood and affect. Objective Labs 09/24/25 04:36 09/24/25 04:36 Labs: Laboratory Results - last 24 hr 09/24/25 09/24/25 09/24/25 00:44 04:36 09:22 WBC 9.4 RBC 4.84 Hgb 12.4 D Hct 38.1 MCV 79 L MCH 25.6 MCHC 32.5 RDW Std Deviation 37.5 Plt Count 254 D Neut % (Auto) 61 Lymph % (Auto) 30 [place]linger % (Auto) 6 Eos % (Auto) 2 Baso % (Auto) 1 Neut # (Auto) 5.7 Lymph # (Auto) 2.9 [place]linger # (Auto) 0.6 Eos # (Auto) 0.2 Baso # (Auto) 0.1 Immature Gran # (Auto) 0.02 H Absolute Nucleated RBC 0.00 Immature Gran % 0 Nucleated RBC % 0 Sodium 142 Potassium 3.6 Chloride 104 Carbon Dioxide 27.0 Anion Gap 11 BUN 7 L Creatinine 0.7 Estim Creat Clear Calc 61.4 eGFR > 60 BUN/Creatinine Ratio 10 L Glucose 173 H D Calculated Osmolality 285 Lactic Acid 1.7 2.1 H 2.6 H Calcium 9.4 Corrected Calcium 9.5 Phosphorus 3.9 Magnesium 1.7 Total Bilirubin 0.4 AST 22 ALT 18 Alkaline Phosphatase 64 D Total Protein 6.7 Albumin 3.9 D Globulin 2.8 Albumin/Globulin Ratio 1.4 Triglycerides 144 Cholesterol 254 H LDL Cholesterol, Calc 173 H HDL Cholesterol 52 Cholesterol/HDL Ratio 4.9 TSH 0.46 L Free T4 1.36 09/24/25 14:32 WBC RBC Hgb Hct MCV MCH MCHC RDW Std Deviation Plt Count Neut % (Auto) Lymph % (Auto) [place]linger % (Auto) Eos % (Auto) Baso % (Auto) Neut # (Auto) Lymph # (Auto) [place]linger # (Auto) Eos # (Auto) Baso # (Auto) Immature Gran # (Auto) Absolute Nucleated RBC Immature Gran % Nucleated RBC % Sodium Potassium Chloride Carbon Dioxide Anion Gap BUN Creatinine Estim Creat Clear Calc eGFR BUN/Creatinine Ratio Glucose Calculated Osmolality Lactic Acid 1.4 Calcium Corrected Calcium Phosphorus Magnesium Total Bilirubin AST ALT Alkaline Phosphatase Total Protein Albumin Globulin Albumin/Globulin Ratio Triglycerides Cholesterol LDL Cholesterol, Calc HDL Cholesterol Cholesterol/HDL Ratio TSH Free T4 ABG Interpretation ABG results: 09/23/25 10:36 ABG pH 7.40 ABG pCO2 38 ABG pO2 67 L ABG HCO3 23 ABG O2 Saturation 93 ABG Base Excess -1
[2025-09-25] VITALS (9 sets, daily range): BP systolic 159–179; BP diastolic 87–111; PULSE 75–96; RESP 15–20; TEMP 36.3–37.2; O2SAT 94–97; BMI 27.0
[2025-09-25] MEDS: SODIUM CHLORIDE 0.9% 1000 ML 1,000 ML 125 ML IV ×3 (02:46→20:11)
[2025-09-25] MEDS: HEPARIN SOD INJ 5000 UNIT/ML VIAL SC ×3 (05:23→21:00)
[2025-09-25 06:23] LABS: Sed Rate (ESR) 59 mm/hr (0-30)
[2025-09-25 06:26] LABS: Basophils # (Auto) 0.1 Thou/mm3 (0.0-0.2); Basophils % (Auto) 1 % (0-2.5); Eosinophils # (Auto) 0.3 Thou/mm3 (0.0-0.5); Eosinophils % (Auto) 4 % (0-10); Hematocrit 38.4 % (36.0-46.0); Hemoglobin 12.2 g/dL (12.0-16.0); Immature Granulocytes Auto 0.02 Thou/mm3 (0.00-0.00); Lymphocytes # (Auto) 2.8 Thou/mm3 (1.0-4.8); Lymphocytes % (Auto) 33 % (10-50); Mean Corpuscular HGB Conc 31.8 g/dl (31.0-37.0); Mean Corpuscular Hemoglobin 25.5 pg (25.0-35.0); Mean Corpuscular Volume 80 fL (80-100); Monocytes # (Auto) 0.6 Thou/mm3 (0.0-0.8); Monocytes % (Auto) 7 % (0-12); Neutrophils # (Auto) 4.6 Thou/mm3 (1.8-7.7); Neutrophils % (Auto) 54 % (37-80); Nucleated Red Blood Cell # 0.00 Thou/mm3 (0.00-0.00); Nucleated Red Blood Cell % 0 /100 WBC (0); Platelet Count 245 Thou/mm3 (140-440); RDW Standard Deviation 38.8 fL (36.4-46.3); Red Blood Count 4.78 Miln/mm3 (4.00-5.20); White Blood Count 8.4 Thou/mm3 (3.6-11.0)
[2025-09-25 06:53] LABS: Alanine Aminotransferase 19 U/L (10-49); Albumin, Serum 3.7 gm/dL (3.4-4.8); Albumin/Globulin Ratio 1.3 (1.2-2.2); Alkaline Phosphatase 60 U/L (46-116); Anion Gap 11 (7-16); Aspartate Amino Transferase 27 U/L (0-34); BUN/Creatinine Ratio 10 Ratio (12-20); Bilirubin,Total 0.5 mg/dL (0.3-1.2); Blood Urea Nitrogen 7 mg/dL (9-23); Calcium 8.6 mg/dL (8.3-10.6); Calcium (Corrected) 8.8 mg/dL (8.5-10.1); Carbon Dioxide 23.6 mMol/L (20.0-31.0); Chloride 108 mMol/L (98-107); Creatinine (Component) 0.7 mg/dL (0.6-1.3); Estimated Creatinine Clearance 62.6 mL/min (>60); Globulin 2.8 gm/dL (2.3-3.5); Glucose 126 mg/dL (74-106); Magnesium 2.0 mg/dL (1.6-2.6); Osmolality,Calculated 284 (275-295); Phosphorous 3.6 mg/dL (2.4-5.1); Potassium 3.6 mMol/L (3.4-5.1); Sodium 143 mMol/L (136-145); Total Protein 6.5 gm/dL (5.7-8.2); eGFR > 60 See Note
[2025-09-25] MEDS: LOSARTAN POTASSIUM 25 MG TABLET 50 MG PO (08:29)
[2025-09-25] MEDS: PANTOPRAZOLE 40 MG TABLET PO (08:30)
[2025-09-25] MEDS: CLOPIDOGREL BISULFATE 75 MG TABLET PO (08:30)
[2025-09-25] MEDS: cefTRIAXone/D5w 1gm IV premix 1 GM/50 ML BAG IV (08:30)
[2025-09-25] MEDS: ASPIRIN EC 81 MG TABEC PO (08:30)
[2025-09-25] MEDS: INSULIN LISPRO (AdmeLOG) 1 UNIT/0.01 ML UNIT SC (11:47)
--- NOTE | 2025-09-25 12:22 | PC.SS ---
Pt was accepted to [facility], contact is Bintaa [phone]. SS sent over Speech eval notes, pt will require auth.
--- NOTE | 2025-09-25 13:25 | ESPR_ITS ---
<Statement entered by Johnny Parikh MD - 09/25/25 14:47> Patient is seen and examined with family at bedside. Denies no acute overnight events. Denies any further complaints. Still no movement is noted on right half of the body. Continue to do physical therapy. Vitals are stable and noted to have a mildly elevated blood pressure to 169/88 mmHg. Family reported that her overall condition appears to be improved including the dysarthria. Urine final urine culture came back positive for E. coli which is pansensitive. Echo cardiogram is done today and pending final read. Pending insurance authorization for placement [facility]. Will continue current management and will change IV ceftriaxone to oral medication for the UTI I have personally seen and examined the patient, agree with residents assessment and plan Patient plan of care was discussed with the attending physician, Dr. Saritha Parikh, PGY2 Documentation for date of: 09/25/25 Subjective Subjective Interval history: No overnight events. Patient was examined at bedside; they appear A&Ox3 and in NAD. Vitals/labs today significant for BP 169/88, ESR 59, potassium 3.6. Today, daughter, who was present at time of interview, reports that patient's dysarthria seems slightly improved from yesterday but that patient's right-sided weakness has stayed unchanged. Physical exam was unremarkable and unchanged from prior day. 09/23 UCx grew haynes-sensitive E. coli. PHQ-9 screening for depression was conducted at bedside and patient scored a 17, indicating moderately severe depression and necessity of antidepressant pharmacotherapy. Patient will be started on PO losartan for her ongoing hypertension and have her IV ceftriaxone transitioned to a PO antibiotic in anticipation for discharge. She is anticipated to be discharged to acute rehab after her 09/23 echocardiogram has been read. Exam Vital Signs Temp Pulse Resp BP Pulse Ox O2 Del Method FiO2 98.8 F 84 20 164/92 H 96 Room Air 97 09/25/25 12:00 09/25/25 12:00 09/25/25 12:00 09/25/25 12:00 09/25/25 12:00 09/25/25 12:00 09/23/25 09:18 Narrative Exam General: Alert and oriented x 3 (assessed by daughter), no acute distress. Skin: Warm, dry, intact, no obvious rash. Head: Normocephalic, atraumatic. Eye: Normal conjunctiva, PERRL. Mouth/Throat: Edentulous on left side. Oral mucosa moist. Cardiovascular: Slightly tachycardic rate and normal rhythm, no murmur, normal peripheral perfusion, no edema. Slightly cold lower extremities. Respiratory: Lungs are clear to auscultation, respirations non labored, no crackles, no wheezing. Gastrointestinal: Soft, nontender, non-distended. Neuro: Same left facial droop and but improved dysarthria per daughter from yesterday. 5/5 strength of LUE and LLE but 0/5 strength of RUE and RLE. Objective Labs 09/25/25 04:59 09/25/25 04:59 Labs: Laboratory Results - last 24 hr 09/24/25 09/25/25 14:32 04:59 WBC 8.4 RBC 4.78 Hgb 12.2 Hct 38.4 MCV 80 MCH 25.5 MCHC 31.8 RDW Std Deviation 38.8 Plt Count 245 Neut % (Auto) 54 Lymph % (Auto) 33 [place] % (Auto) 7 Eos % (Auto) 4 Baso % (Auto) 1 Neut # (Auto) 4.6 Lymph # (Auto) 2.8 [place] # (Auto) 0.6 Eos # (Auto) 0.3 Baso # (Auto) 0.1 Immature Gran # (Auto) 0.02 H Absolute Nucleated RBC 0.00 Immature Gran % 0 Nucleated RBC % 0 ESR 59 H Sodium 143 Potassium 3.6 Chloride 108 H Carbon Dioxide 23.6 Anion Gap 11 BUN 7 L Creatinine 0.7 Estim Creat Clear Calc 62.6 eGFR > 60 BUN/Creatinine Ratio 10 L Glucose 126 H Calculated Osmolality 284 Lactic Acid 1.4 Calcium 8.6 Corrected Calcium 8.8 Phosphorus 3.6 Magnesium 2.0 Total Bilirubin 0.5 AST 27 ALT 19 Alkaline Phosphatase 60 Total Protein 6.5 Albumin 3.7 Globulin 2.8 Albumin/Globulin Ratio 1.3 ABG Interpretation ABG results: 09/23/25 10:36 ABG pH 7.40 ABG pCO2 38 ABG pO2 67 L ABG HCO3 23 ABG O2 Saturation 93 ABG Base Excess -1 Quality Measures Quality Measures stroke Suspected type of Stroke: Non Acute Last known well (date): 09/22/25 Last known well (time): 22:00 Tenecteplase given: Reason(s) Tenecteplase not given: Outside the time window not given Rehab services: PT evaluation ordered and Speech Language Pathology eval ordered VTE Prophylaxis: pharmaceutical Antithrombotic by day 2:: not indicated (describe) Statin ordered: <75 y/o high intensity dose Anticoagulation ordered for A-fib or flutter (current or hx): not indicated Advance care planning discussed with:: patient Assessment & Plan Assessment Current Active Medications: Generic Name Dose Route Start Last Admin Trade Name Freq PRN Reason Stop Dose Admin Acetaminophen 650 mg 09/23/25 11:41 Acetaminophen 325 Mg Tablet PO 10/23/25 11:40 Q6H PRN Fever >100.3 or Mild Pain 1-3 Acetaminophen 650 mg 09/23/25 11:41 Acetaminophen Supp 650 Mg Supp LA 10/23/25 11:40 Q6H PRN PAIN SCALE 1-3 (mild Protocol Aspirin 81 mg 09/24/25 09:00 09/25/25 08:30 Aspirin Ec 81 Mg Tabec PO 10/24/25 08:59 81 mg QDAY BRITNEY Administration Atorvastatin Calcium 80 mg 09/23/25 21:00 09/24/25 20:56 Atorvastatin Calcium 20 Mg Tablet PO 10/23/25 20:59 80 mg HS BRITNEY Administration Clopidogrel Bisulfate 75 mg 09/24/25 09:00 09/25/25 08:30 Clopidogrel Bisulfate 75 Mg Tablet PO 10/24/25 08:59 75 mg QDAY BRITNEY Administration Dextrose 25 ml 09/23/25 15:33 Dextrose 50%-Water Inj 50 Ml Syringe IV 10/23/25 15:32 Q15MIN PRN BG 50-70 responsive npo pt Dextrose 50 ml 09/23/25 15:33 Dextrose 50%-Water Inj 50 Ml Syringe IV 10/23/25 15:32 Q15MIN PRN BG <50 OR BG <70 & pt unresponsive Glucagon 1 mg 09/23/25 15:33 Glucagon Inj 1 Mg Vial IM Q15MIN PRN BG <70, and no IV access Heparin Sodium (Porcine) 5,000 unit 09/23/25 14:00 09/25/25 13:04 Heparin Sod Inj 5000 Unit/Ml Vial SC 10/07/25 13:59 5,000 unit Q8HR BRITNEY Administration Ceftriaxone Sodium/Dextrose 1 gm in 50 mls @ 100 mls/hr 09/24/25 09:00 09/25/25 08:30 Rocephin/D5w 1gm Iv Premix IV 10/01/25 08:59 100 mls/hr QDAY BRITNEY Administration Sodium Chloride 1,000 mls @ 125 mls/hr 09/24/25 09:57 09/25/25 11:46 Ns IV 10/24/25 09:56 125 mls/hr .Q8H BRITNEY Administration Insulin Human Lispro 0 unit 09/23/25 17:00 09/25/25 11:47 Insulin Lispro (Admelog) 1 Unit/0.01 Ml Unit SC 10/23/25 16:59 3 unit ACHS BRITNEY Administration Protocol Labetalol HCl 10 mg 09/23/25 11:47 Labetalol Inj 5 Mg/Ml Vial 20 Ml IVP 10/23/25 11:46 Q4HR PRN Hypertension Losartan Potassium 50 mg 09/25/25 09:00 09/25/25 08:29 Losartan Potassium 25 Mg Tablet PO 10/25/25 08:59 50 mg QDAY BRITNEY Administration Ondansetron HCl 4 mg 09/23/25 09:13 Ondansetron Inj 2 Mg/Ml Inj 2 Ml IVP 10/23/25 09:12 Q4HR PRN NAUSEA OR VOMITING Pantoprazole Sodium 40 mg 09/24/25 09:00 09/25/25 08:30 Pantoprazole 40 Mg Tablet PO 10/24/25 08:59 40 mg QDAY BRITNEY Administration Sennosides 1 tab 09/23/25 11:41 Senna Tablet PO 10/23/25 11:40 QDAY PRN constipation Protocol Plan Patient is a [id number] 70-year-old female with a PMH of insulin- independent T2DM noncompliant on metformin, hypertension noncompliant on lisinopril, hyperlipidemia noncompliant on simvastatin, and chronic dizziness on dimenhydrinate who presented on 09/23 with a chief complaint of generalized weakness and altered mental status. Patient was admitted for the work-up and management of stroke-like symptoms (no TNK administered), hypertensive emergency, anion gap metabolic acidosis with lactic acidosis, and UTI. In-house Neurology (Dr. Martinez) was consulted and is closely following the case. #CVA Per documentation by Teleneurology, patient initially presented with slurred speech and left facial droop (NIHSS 3) but this has seemed to resolve by time of this typewriter operator automatic's interview (NIHSS 0) Per daughter, patient also seemed to have new right-sided weakness that is not present at baseline 09/23 CT head and CTA head/neck both negative for signs of hemorrhage or LVO TNK not administered as LKWT was 8 PM and patient was outside eligible time window Given PO Plavix loading dose of 300 mg x 1 in the ED UA suggestive of possible UTI although patient denies any urinary symptoms Dx: -Ordered HgbA1c, showed 10.0 -Ordered lipid panel, showed cholesterol 254, LDL 173 -Ordered TSH and free T4, showed 0.87 and 1.40 (both WNL) -09/23 echocardiogram showed ___ -09/23 stroke protocol brain MRI showed 15 mm acute infarct of the left brainstem at the pontine level as well as significant cerebral arterial sclerotic disease Rx: -PO aspirin 81 mg daily and PO Plavix 75 mg daily -PO atorvastatin 80 mg daily -HOB elevation 30 degrees -Euglycemia with ISS and avoid hyperthermia with PO acetaminophen 650 mg prn -Ordered PT and speech therapy -Neurology (Dr. Martinez) consulted, appreciate recommendations #Hypertensive emergency, resolving #Primary hypertension, uncontrolled i/s/o medication non-compliance 09/23 admission BP 199/76 with signs of end-organ damage including altered mental status and lactic acidosis Patient apparently has home medication of lisinopril but has not taken it since about a year ago Rx: -PO losartan 50 mg qD -PO lisinopril 10 mg qD -IV labetalol 10 mg prn for SBP>180 or DBP>120 after conclusion of permissive HTN period #Iom-hlfmcul-inuzlhkfb diabetes mellitus type 2, uncontrolled i/s/o medication non-compliance [10%] 09/23 admission blood glucose of 300, BHB 0.3 (WNL) Patient reportedly has T2DM but has not taken her home metformin since about a year ago Dx: -HgbA1c this admission 10.0 Rx: -ISS #Anion gap metabolic acidosis, resolved #Lactic acidosis, improving 09/23 admission lactic acid 6.8 (later down-trended to 5.3) with anion gap of 17 09/24 lactic acid down-trended to 2.6 and anion gap down-trended to 11 Rx: -Continue to monitor and treat suspected underlying causes #UTI 09/23 admission UA suggestive of UTI (3+ bacteria, positive LE) but patient denies urinary symptoms Dx: -09/23 reflex UCx grew E. coli Rx: -IV ceftriaxone 1 g daily (will transition to PO option tomorrow) #Hyperlipidemia Self-reported history with home medication of simvastatin Dx: -Lipid panel as above Rx: -PO atorvastatin 80 mg qHS #Elevated ESR - 91 09/23 admission ESR 91 Dx: -09/24 repeat CRP and ESR ordered, showed ESR 59, CRP ___ Rx: -Continue to monitor #Major depressive disorder Daughter reports that patient became non-compliant with her medications after the of her about a year ago Dx: -PHQ-9 Assessment Score: 17 Rx: -Started Lexapro 10 daily Hospital Management: Disposition: Admitted to [facility] for stroke protocol, hypertensive emergency, anion gap metabolic acidosis with lactic acidosis, and UTI Diet: Carbohydrate Consistent GI Prophylaxis: PO Protonix 40 mg daily Bowel Prophylaxis: PO Senna 1 tab daily as needed DVT Prophylaxis: Subcutaneous heparin 5000 units every 8 hours CODE STATUS: Full Code I have examined the patient and conferred with my attending, Dr. Melara, and my senior resident, Dr. Parikh, regarding them. Bharath Stallings DO PGY-1 Internal Medicine Attending Provider Attestation/Addendum I have seen and examined the patient. I was physically present for the rivera portions of the services provided including history, physical exam, diagnosis, treatment plans and orders. I agree with assessment and plan of care as documented by residents. Patient seen and examined at bedside this morning. No acute overnight events, appears comfortable. Continues to have right-sided weakness. Complains of numbness around her right upper extremity. Vital signs are stable except for mild hypertension, we will adjust her antihypertensives. Lab results have been stable. Brain MRI showed 15 mm acute infarct in left brainstem pontine level and cerebral arterial sclerosis. Urine grew pansensitive E. coli we will de- escalate her antibiotic to trimethoprim/sulfamethoxazole. Echocardiography obtained, negative for bubble study. Neurology following closely, appreciate recommendations. PHQ-9 screening revealed moderate to severe depression, started on Lexapro. Awaiting placement. Even though this this note was carefully revised there may still be minor errors in director paid media due to voice recognition software. Jarad Melara MD
[2025-09-25] MEDS: ESCITALOPRAM OXALATE 10 MG TABLET PO (16:58)
[2025-09-25] MEDS: ATORVASTATIN CALCIUM 20 MG TABLET 80 MG PO (20:11)
--- NOTE | 2025-09-25 23:58 | VVPN_ITS ---
Telemedicine visit statement This visit was conducted with the use of interactive audio and video telecommunications system that permits real time communication between the patient and the provider. Patient's verbal consent for virtual visit was obtained on 09/25/25 at 2358. Documentation for date of: 09/25/25 Subjective Subjective Interval history: Patient is in telemetry with her family at the bedside. Her mental status is significantly improved to baseline and is able to communicate fluently with family members. Continue to have right dense hemiplegia. Virtual exam Vital Signs Temp Pulse Resp BP Pulse Ox O2 Del Method FiO2 97.3 F 87 18 178/111 H 94 L Room Air 97 09/25/25 20:00 09/25/25 20:00 09/25/25 20:00 09/25/25 20:00 09/25/25 20:00 09/25/25 20:00 09/23/25 09:18 Objective Labs 09/25/25 04:59 09/25/25 04:59 Labs: Laboratory Results - last 24 hr 09/25/25 04:59 WBC 8.4 RBC 4.78 Hgb 12.2 Hct 38.4 MCV 80 MCH 25.5 MCHC 31.8 RDW Std Deviation 38.8 Plt Count 245 Neut % (Auto) 54 Lymph % (Auto) 33 [place] % (Auto) 7 Eos % (Auto) 4 Baso % (Auto) 1 Neut # (Auto) 4.6 Lymph # (Auto) 2.8 [place] # (Auto) 0.6 Eos # (Auto) 0.3 Baso # (Auto) 0.1 Immature Gran # (Auto) 0.02 H Absolute Nucleated RBC 0.00 Immature Gran % 0 Nucleated RBC % 0 ESR 59 H Sodium 143 Potassium 3.6 Chloride 108 H Carbon Dioxide 23.6 Anion Gap 11 BUN 7 L Creatinine 0.7 Estim Creat Clear Calc 62.6 eGFR > 60 BUN/Creatinine Ratio 10 L Glucose 126 H Calculated Osmolality 284 Calcium 8.6 Corrected Calcium 8.8 Phosphorus 3.6 Magnesium 2.0 Total Bilirubin 0.5 AST 27 ALT 19 Alkaline Phosphatase 60 Total Protein 6.5 Albumin 3.7 Globulin 2.8 Albumin/Globulin Ratio 1.3 ABG Interpretation ABG results: 09/23/25 10:36 ABG pH 7.40 ABG pCO2 38 ABG pO2 67 L ABG HCO3 23 ABG O2 Saturation 93 ABG Base Excess -1 Assessment & Plan Problem List (1) Acute ischemic cerebrovascular accident (CVA) involving left middle cerebral artery territory: Status: Acute Assessment and plan: Language deficit improving and dense right hemiplegia. Continue with physical therapy and therapy and speech therapy continue with aspirin Plavix and statin (2) Hypertension: Status: Chronic Assessment and plan: Continue with aggressive blood pressure management, increase the frequency of losartan to 50 mg twice a day
[2025-09-26] VITALS (16 sets, daily range): BP systolic 149–179; BP diastolic 82–94; PULSE 80–98; RESP 13–95; TEMP 36.2–37.2; O2SAT 93–95; BMI 27.0; BMI 12.0
[2025-09-26] MEDS: LOSARTAN POTASSIUM 25 MG TABLET 50 MG PO ×3 (00:49→22:15)
[2025-09-26] MEDS: SODIUM CHLORIDE 0.9% 1000 ML 1,000 ML 125 ML IV (04:05)
[2025-09-26] MEDS: HEPARIN SOD INJ 5000 UNIT/ML VIAL SC ×3 (05:19→22:15)
[2025-09-26 05:31] LABS: Basophils # (Auto) 0.1 Thou/mm3 (0.0-0.2); Basophils % (Auto) 1 % (0-2.5); Eosinophils # (Auto) 0.4 Thou/mm3 (0.0-0.5); Eosinophils % (Auto) 4 % (0-10); Hematocrit 37.5 % (36.0-46.0); Hemoglobin 11.9 g/dL (12.0-16.0); Immature Granulocytes Auto 0.03 Thou/mm3 (0.00-0.00); Lymphocytes # (Auto) 2.8 Thou/mm3 (1.0-4.8); Lymphocytes % (Auto) 31 % (10-50); Mean Corpuscular HGB Conc 31.7 g/dl (31.0-37.0); Mean Corpuscular Hemoglobin 25.6 pg (25.0-35.0); Mean Corpuscular Volume 81 fL (80-100); Monocytes # (Auto) 0.6 Thou/mm3 (0.0-0.8); Monocytes % (Auto) 7 % (0-12); Neutrophils # (Auto) 5.2 Thou/mm3 (1.8-7.7); Neutrophils % (Auto) 58 % (37-80); Nucleated Red Blood Cell # 0.00 Thou/mm3 (0.00-0.00); Nucleated Red Blood Cell % 0 /100 WBC (0); Platelet Count 250 Thou/mm3 (140-440); RDW Standard Deviation 38.4 fL (36.4-46.3); Red Blood Count 4.64 Miln/mm3 (4.00-5.20); White Blood Count 9.1 Thou/mm3 (3.6-11.0)
[2025-09-26 05:57] LABS: Alanine Aminotransferase 19 U/L (10-49); Albumin, Serum 3.6 gm/dL (3.4-4.8); Albumin/Globulin Ratio 1.3 (1.2-2.2); Alkaline Phosphatase 62 U/L (46-116); Anion Gap 11 (7-16); Aspartate Amino Transferase 33 U/L (0-34); BUN/Creatinine Ratio 10 Ratio (12-20); Bilirubin,Total 0.5 mg/dL (0.3-1.2); Blood Urea Nitrogen 7 mg/dL (9-23); Calcium 8.6 mg/dL (8.3-10.6); Calcium (Corrected) 8.9 mg/dL (8.5-10.1); Carbon Dioxide 21.6 mMol/L (20.0-31.0); Chloride 109 mMol/L (98-107); Creatinine (Component) 0.7 mg/dL (0.6-1.3); Estimated Creatinine Clearance 62.6 mL/min (>60); Globulin 2.8 gm/dL (2.3-3.5); Glucose 135 mg/dL (74-106); Magnesium 1.7 mg/dL (1.6-2.6); Osmolality,Calculated 283 (275-295); Phosphorous 3.2 mg/dL (2.4-5.1); Potassium 3.6 mMol/L (3.4-5.1); Sodium 142 mMol/L (136-145); Total Protein 6.4 gm/dL (5.7-8.2); eGFR > 60 See Note
[2025-09-26] MEDS: ASPIRIN EC 81 MG TABEC PO (08:20)
[2025-09-26] MEDS: PANTOPRAZOLE 40 MG TABLET PO (08:20)
[2025-09-26] MEDS: CLOPIDOGREL BISULFATE 75 MG TABLET PO (08:21)
[2025-09-26] MEDS: ESCITALOPRAM OXALATE 10 MG TABLET PO (08:22)
[2025-09-26] MEDS: TRIMETHOPRIM/SULFA 160/800 DS TABLET 1 TAB PO ×2 (08:22→22:15)
--- NOTE | 2025-09-26 10:58 | PD.RESDS ---
Planned Discharge Date 09/26/25 DS: Providers Provider Date of admission: 09/23/25 11:41 Primary care physician: Feliberto Garibay PA-C Admitting Provider: Jarad Melara MD Attending Provider on Admission: Jarad Melara MD Consults: 09/23/25 09:13 Consult to Neurology / Tele-Neurology Routine Comment: Consulting Provider: [facility] 09/23/25 12:34 Referral Speech Therapy Stat Comment: 09/23/25 16:03 Referral Speech Therapy Routine Comment: stroke r/o 09/23/25 16:04 Referral Physical Therapy Routine Comment: stroke r/o Physician Instructions: Instructions: history of generalized R sided weakness and diabetes 09/24/25 08:11 Consult to Neurology / Tele-Neurology Routine Comment: CVA R/O Consulting Provider: Parker Martinez 09/24/25 09:00 Referral Registered Dietitian Routine Comment: HgbA1c 10.0 Attending Provider on DC: Jarad Melara MD Discharging Provider: Bharath Stallings DO DS: Diagnosis Problem List Completed Was Problem List Reviewed/Reconciled?: Yes Hospital Course Hospital Course Hospital course: Summary: Patient is a yzl-Ndmkelk-votrvglo 70-year-old female with a PMH of insulin-independent T2DM noncompliant on metformin, hypertension noncompliant on lisinopril, hyperlipidemia noncompliant on simvastatin, and chronic dizziness on dimenhydrinate who presented on 09/23 with a chief complaint of generalized weakness and altered mental status. Patient was admitted for the work-up and management of stroke-like symptoms (no TNK administered), hypertensive emergency, anion gap metabolic acidosis with lactic acidosis, and UTI. Hospital: During patient's hospital course, she was placed on stroke protocol and started on DAPT and high-intensity statin for her stroke-like symptoms which ended up being a confirmed acute infarct of the left brainstem at the pontine level on 09/23 brain MRI. She was also treated with IV labetalol, PO lisinopril, and PO losartan for her initial hypertensive emergency and general hypertension throughout the admission. She received IV ceftriaxone due to her initial 09/23 UA being suggestive of UTI (with UCx later growing E. coli) but patient denied urinary symptoms throughout her hospitalization. Finally, a PHQ-9 was conducted and patient scored a 17 which led her to being started on PO Lexapro. By 09/26, patient was deemed clinically stabilized and discharged to acute rehab. Patient is safe to discharge. Further discharge instructions below. # # # Status at Discharge Cognitive/Behavioral Status at Discharge: stable Functional Status at Discharge: independent ambulation Overall Status at Discharge: patient is back to baseline Patient's care plan was discussed with my attending, , and senior resident, . Bharath Stallings, DO Internal Medicine, PGY-1 Time Spent with Patient Time attestation: Total time spent providing and/or coordinating discharge services: 35 minutes Time spent: Greater than 30 minutes Exam Vital Signs Temp Pulse Resp BP Pulse Ox O2 Del Method FiO2 98.9 F 90 17 169/90 H 93 L Room Air 97 09/26/25 07:57 09/26/25 08:22 09/26/25 07:57 09/26/25 08:22 09/26/25 07:57 09/26/25 07:57 09/23/25 09:18 Narrative Exam General: Alert and oriented x 3 (assessed by daughter), no acute distress. Skin: Warm, dry, intact, no obvious rash. Head: Normocephalic, atraumatic. Eye: Normal conjunctiva, PERRL. Mouth/Throat: Edentulous on left side. Oral mucosa moist. Cardiovascular: Slightly tachycardic rate and normal rhythm, no murmur, normal peripheral perfusion, no edema. Slightly cold lower extremities. Respiratory: Lungs are clear to auscultation, respirations non labored, no crackles, no wheezing. Gastrointestinal: Soft, nontender, non-distended. Neuro: Same left facial droop and but improved dysarthria per daughter from yesterday. 5/5 strength of LUE and LLE but 0/5 strength of RUE and RLE. Discharge Plan Plan Patient Disposition: Xfer Skilled Nsg Fac (SNF) Patient condition on transfer: Stable Prescriptions/Referrals Prescriptions/Med Rec: No Action No Known Home Medications Referrals: Vinh Garibay PA-C [Primary Care Provider, Medical] Patient/Caregiver Discharge Instructions Education Materials: Controlling High Blood Pressure, Diabetes and Heart Disease, What Is Ischemic Stroke?, Stroke: Resources and Support, Blood Pressure Check Steps Print Language: Ezekiel Stand Alone Forms: Violet Award Info., Patient Portal Info Letter Attestestation MD Attestation I have seen and examined the patient. I was physically present for the rivera portions of the services provided including history, physical exam, diagnosis, treatment plans and orders. I agree with assessment and plan of care as documented by residents. Even though this this note was carefully revised there may still be minor errors in grips due to voice recognition software. Jarad Melara MD
--- NOTE | 2025-09-26 11:15 | PC.SS ---
SS received a message on MIRACLE from Blayne at [facility], that she has been unsuccessful wih reaching family to determine DC support from their program. SS went to bedside and spoke to Son Alan Newsome [phone] and provided him with P# [phone] Blayne to call and give DC support.
[2025-09-26] MEDS: INSULIN LISPRO (AdmeLOG) 1 UNIT/0.01 ML UNIT SC (11:50)
[2025-09-26] MEDS: ACETAMINOPHEN 325 MG TABLET 650 MG PO (14:38)
--- NOTE | 2025-09-26 15:19 | PC.SS ---
CHANGE MANAGEMENT EXPERT met with patient's daughter, Sophia Newsome ; to confirm that daughter informed of need to contact [facility] to verify discharge plan that patient will have family assistance upon patient's return home from Acute [facility]hab. Patient's daughter to contact Acute Rehab facility to confirm plan. Once called completed Acute Rehab to initiate authorization for placement.
--- NOTE | 2025-09-26 16:00 | PC.SS ---
NAIL SPECIALIST received phone call from [facility] staff indicating that patient's insurance is not in network with facility. NAIL SPECIALIST updated family.
--- NOTE | 2025-09-26 18:13 | ESPR_ITS ---
<Statement entered by Susanne Muhammad MD - 09/28/25 07:53> Patient was seen and examined by me personally. I have directly supervised and reviewed documentation by the team resident and agree with its findings with any exceptions or additional findings as below. Plan of care was discussed with the attending, Dr. Melara. Susanne Muhammad, PGY-3 Documentation for date of: 09/26/25 Subjective Subjective Interval history: Patient was originally planned to be discharged to SNF today but blood pressures remain elevated (last BP reading was 179/93) despite her regimen of losartan 50 mg PO qD and lisinopril 10 mg PO qD. Lisinopril has been d/c'd, losartan dosing has been increased to BID from qD, and amlodipine 10 mg qD has been started as a result. Exam Vital Signs Temp Pulse Resp BP Pulse Ox O2 Del Method FiO2 99.0 F 98 18 179/93 H 94 L Room Air 97 09/26/25 11:51 09/26/25 17:43 09/26/25 11:51 09/26/25 17:43 09/26/25 11:51 09/26/25 07:57 09/23/25 09:18 Narrative Exam General: Alert and oriented x 3 (assessed by son), no acute distress. Skin: Warm, dry, intact, no obvious rash. Head: Normocephalic, atraumatic. Eye: Normal conjunctiva, PERRL. Mouth/Throat: Edentulous on left side. Oral mucosa moist. Cardiovascular: Slightly tachycardic rate and normal rhythm, no murmur, normal peripheral perfusion, no edema. Slightly cold lower extremities. Respiratory: Lungs are clear to auscultation, respirations non labored, no crackles, no wheezing. Gastrointestinal: Soft, nontender, non-distended. Neuro: Same left facial droop and but improved dysarthria per daughter from yesterday. 5/5 strength of LUE and LLE but 0/5 strength of RUE and RLE. Objective Labs 09/26/25 04:27 09/26/25 04:27 Labs: Laboratory Results - last 24 hr 09/26/25 04:27 WBC 9.1 RBC 4.64 Hgb 11.9 L Hct 37.5 MCV 81 MCH 25.6 MCHC 31.7 RDW Std Deviation 38.4 Plt Count 250 Neut % (Auto) 58 Lymph % (Auto) 31 [place] % (Auto) 7 Eos % (Auto) 4 Baso % (Auto) 1 Neut # (Auto) 5.2 Lymph # (Auto) 2.8 [place] # (Auto) 0.6 Eos # (Auto) 0.4 Baso # (Auto) 0.1 Immature Gran # (Auto) 0.03 H Absolute Nucleated RBC 0.00 Immature Gran % 0 Nucleated RBC % 0 Sodium 142 Potassium 3.6 Chloride 109 H Carbon Dioxide 21.6 Anion Gap 11 BUN 7 L Creatinine 0.7 Estim Creat Clear Calc 62.6 eGFR > 60 BUN/Creatinine Ratio 10 L Glucose 135 H Calculated Osmolality 283 Calcium 8.6 Corrected Calcium 8.9 Phosphorus 3.2 Magnesium 1.7 Total Bilirubin 0.5 AST 33 ALT 19 Alkaline Phosphatase 62 Total Protein 6.4 Albumin 3.6 Globulin 2.8 Albumin/Globulin Ratio 1.3 ABG Interpretation ABG results: 09/23/25 10:36 ABG pH 7.40 ABG pCO2 38 ABG pO2 67 L ABG HCO3 23 ABG O2 Saturation 93 ABG Base Excess -1 Quality Measures Quality Measures stroke Suspected type of Stroke: Non Acute Last known well (date): 09/22/25 Last known well (time): 22:00 Tenecteplase given: Reason(s) Tenecteplase not given: Outside the time window not given Rehab services: PT evaluation ordered and Speech Language Pathology eval ordered VTE Prophylaxis: pharmaceutical Antithrombotic by day 2:: not indicated (describe) Statin ordered: <75 y/o high intensity dose Anticoagulation ordered for A-fib or flutter (current or hx): ordered Advance care planning discussed with:: patient and child Assessment & Plan Assessment Current Active Medications: Generic Name Dose Route Start Last Admin Trade Name Freq PRN Reason Stop Dose Admin Acetaminophen 650 mg 09/23/25 11:41 09/26/25 14:38 Acetaminophen 325 Mg Tablet PO 10/23/25 11:40 650 mg Q6H PRN Administration Fever >100.3 or Mild Pain 1-3 Acetaminophen 650 mg 09/23/25 11:41 Acetaminophen Supp 650 Mg Supp ND 10/23/25 11:40 Q6H PRN PAIN SCALE 1-3 (mild Protocol Amlodipine Besylate 10 mg 09/27/25 09:00 Amlodipine Besylate 5 Mg Tablet PO 12/04/25 08:59 QDAY BRITNEY Aspirin 81 mg 09/24/25 09:00 09/26/25 08:20 Aspirin Ec 81 Mg Tabec PO 10/24/25 08:59 81 mg QDAY BRITNEY Administration Atorvastatin Calcium 80 mg 09/23/25 21:00 09/25/25 20:11 Atorvastatin Calcium 20 Mg Tablet PO 10/23/25 20:59 80 mg HS BRITNEY Administration Clopidogrel Bisulfate 75 mg 09/24/25 09:00 09/26/25 08:21 Clopidogrel Bisulfate 75 Mg Tablet PO 10/24/25 08:59 75 mg QDAY BRITNEY Administration Dextrose 25 ml 09/23/25 15:33 Dextrose 50%-Water Inj 50 Ml Syringe IV 10/23/25 15:32 Q15MIN PRN BG 50-70 responsive npo pt Dextrose 50 ml 09/23/25 15:33 Dextrose 50%-Water Inj 50 Ml Syringe IV 10/23/25 15:32 Q15MIN PRN BG <50 OR BG <70 & pt unresponsive Escitalopram Oxalate 10 mg 09/25/25 15:15 09/26/25 08:22 Escitalopram Oxalate 10 Mg Tablet PO 10/25/25 15:14 10 mg QDAY BRITNEY Administration Glucagon 1 mg 09/23/25 15:33 Glucagon Inj 1 Mg Vial IM Q15MIN PRN BG <70, and no IV access Heparin Sodium (Porcine) 5,000 unit 09/23/25 14:00 09/26/25 14:39 Heparin Sod Inj 5000 Unit/Ml Vial SC 10/07/25 13:59 5,000 unit Q8HR BRITNEY Administration Insulin Human Lispro 0 unit 09/23/25 17:00 09/26/25 17:00 Insulin Lispro (Admelog) 1 Unit/0.01 Ml Unit SC 10/23/25 16:59 Not Given ACHS BRITNEY Protocol Labetalol HCl 10 mg 09/23/25 11:47 Labetalol Inj 5 Mg/Ml Vial 20 Ml IVP 10/23/25 11:46 Q4HR PRN Hypertension Losartan Potassium 50 mg 09/26/25 09:00 09/26/25 08:22 Losartan Potassium 25 Mg Tablet PO 10/26/25 08:59 50 mg BID BRITNEY Administration Ondansetron HCl 4 mg 09/23/25 09:13 Ondansetron Inj 2 Mg/Ml Inj 2 Ml IVP 10/23/25 09:12 Q4HR PRN NAUSEA OR VOMITING Pantoprazole Sodium 40 mg 09/24/25 09:00 09/26/25 08:20 Pantoprazole 40 Mg Tablet PO 10/24/25 08:59 40 mg QDAY BRITNEY Administration Sennosides 1 tab 09/23/25 11:41 Senna Tablet PO 10/23/25 11:40 QDAY PRN constipation Protocol Trimethoprim/Sulfamethoxazole 1 tab 09/26/25 09:00 09/26/25 08:22 Trimethoprim/Sulfa 160/800 Ds Tablet PO 10/03/25 08:59 1 tab BID BRITNEY Administration Plan Patient is a [id number] 70-year-old female with a PMH of insulin- independent T2DM noncompliant on metformin, hypertension noncompliant on lisinopril, hyperlipidemia noncompliant on simvastatin, and chronic dizziness on dimenhydrinate who presented on 09/23 with a chief complaint of generalized weakness and altered mental status. Patient was admitted for the work-up and management of stroke-like symptoms (no TNK administered), hypertensive emergency, anion gap metabolic acidosis with lactic acidosis, and UTI. In-house Neurology (Dr. Martinez) was consulted and is closely following the case. 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 #Right-sided hemiplegia Per documentation by Teleneurology, patient initially presented with slurred speech and left facial droop (NIHSS 3) but this has seemed to resolve by time of this radio script writer's interview (NIHSS 0) Per daughter, patient also seemed to have new right-sided weakness that is not present at baseline 09/23 CT head and CTA head/neck both negative for signs of hemorrhage or LVO TNK not administered as LKWT was 8 PM and patient was outside eligible time window Given PO Plavix loading dose of 300 mg x 1 in the ED UA suggestive of possible UTI although patient denies any urinary symptoms Dx: -Ordered HgbA1c, showed 10.0 -Ordered lipid panel, showed cholesterol 254, LDL 173 -Ordered TSH and free T4, showed 0.87 and 1.40 (both WNL) -09/23 echocardiogram was negative for PFO or ASD -09/23 stroke protocol brain MRI showed 15 mm acute infarct of the left brainstem at the pontine level as well as significant cerebral arterial sclerotic disease Rx: -PO aspirin 81 mg daily and PO Plavix 75 mg daily -PO atorvastatin 80 mg daily -Ordered PT and speech therapy -Neurology (Dr. Martinez) consulted, appreciate recommendations #Wzx-hqudnzz-uhdvanpda diabetes mellitus type 2, uncontrolled i/s/o medication non-compliance [10%] 09/23 admission blood glucose of 300, BHB 0.3 (WNL) Patient reportedly has T2DM but has not taken her home metformin since about a year ago Dx: -HgbA1c this admission 10.0 Rx: -ISS #Anion gap metabolic acidosis, resolved #Lactic acidosis, improving 09/23 admission lactic acid 6.8 (later down-trended to 5.3) with anion gap of 17 09/24 lactic acid down-trended to 2.6 and anion gap down-trended to 11 Rx: -Continue to monitor and treat suspected underlying causes #UTI 09/23 admission UA suggestive of UTI (3+ bacteria, positive LE) but patient denies urinary symptoms Dx: -09/23 reflex UCx grew E. coli Rx: -Bactrim 160 mg PO BID #Hyperlipidemia Self-reported history with home medication of simvastatin Dx: -Lipid panel as above Rx: -PO atorvastatin 80 mg qHS #Elevated ESR - 91 09/23 admission ESR 91 Dx: -09/24 repeat ESR ordered, showed ESR 59 Rx: -Continue to monitor #Major depressive disorder Daughter reports that patient became non-compliant with her medications after the of her about a year ago Dx: -PHQ-9 Assessment Score: 17 Rx: -Lexapro 10 mg PO qD Hospital Management: Disposition: Admitted to [facility] for stroke protocol, hypertensive emergency, anion gap metabolic acidosis with lactic acidosis, and UTI Diet: Carbohydrate Consistent GI Prophylaxis: PO Protonix 40 mg daily Bowel Prophylaxis: PO Senna 1 tab daily as needed DVT Prophylaxis: Subcutaneous heparin 5000 units every 8 hours CODE STATUS: Full Code I have examined the patient and conferred with my attending, Dr. Melara, and my senior resident, Dr. Muhammad, regarding them. Bharath Stallings DO PGY-1 Internal Medicine Attending Provider Attestation/Addendum I have seen and examined the patient. I was physically present for the rivera portions of the services provided including history, physical exam, diagnosis, treatment plans and orders. I agree with assessment and plan of care as documented by residents. Even though this this note was carefully revised there may still be minor errors in chief wharfinger due to voice recognition software. Jarad Melara MD
--- NOTE | 2025-09-26 20:27 | PD.NEUROPROG ---
Documentation for date of: 09/26/25 Subjective Subjective Interval history: Patient was seen at the bedside with her family. Continues to have some language disfluency and right-sided weakness including face arm and leg. Exam - Neurology Vital Signs Temp Pulse Resp BP Pulse Ox O2 Del Method FiO2 98.7 F 98 18 179/93 H 94 L Room Air 97 09/26/25 16:00 09/26/25 17:43 09/26/25 16:00 09/26/25 17:43 09/26/25 16:00 09/26/25 16:00 09/23/25 09:18 Narrative Exam GENERAL APPEARANCE: Well hydrated, well-nourished in no acute distress. HEENT: Normocephalic, atraumatic, extraocular movements intact. Pupils: Equal reacting to light and accommodation NECK: Supple, no JVD or bruits. CARDIOVASULAR: Heart: S1, S2 heard, regular without S3-S4 or murmur no rubs or gallops. LUNGS/CHEST: Clear to auscultation bilaterally. No rails, rhonchi, or wheezing. Normal inspection. ABDOMEN: Soft, nontender, with normal bowel sounds. No pulsatile masses. No rebound, rigidity, or guarding. Normal inspection and palpation. EXTREMITIES: Normal inspection and palpation. No edema, clubbing or cyanosis. SKIN: Warm and dry without rashes. Normal inspection. MUSCULOSKELETAL: No cervical, thoracic, lumbar or midline bony tenderness. Normal inspection. NEURO: Alert, awake and oriented x2. Cranial nerves: II through XII grossly intact. Speech and language: new onset dysarthria and dysphasia but improving. Motor system: Tone and bulk: Normal: Strength: Dense right hemiplegia noted. Deep tendon reflexes: 2+ bilaterally symmetrical. Plantar reflex: Downgoing bilaterally. Sensory system: Intact to all modalities of sensation bilaterally. Coordination: Intact to sayxwl-cmiz-bravlt and egih-diph-qgcb test on the left. No ataxia, no dysmetria, or dysdiadochokinesia noted. No intention tremors noted. Gait: not tested. No signs of meningeal irritation noted. PSYCHIATRIC: Normal mood and affect. Objective Labs 09/26/25 04:27 09/26/25 04:27 Labs: Laboratory Results - last 24 hr 09/26/25 04:27 WBC 9.1 RBC 4.64 Hgb 11.9 L Hct 37.5 MCV 81 MCH 25.6 MCHC 31.7 RDW Std Deviation 38.4 Plt Count 250 Neut % (Auto) 58 Lymph % (Auto) 31 [place] % (Auto) 7 Eos % (Auto) 4 Baso % (Auto) 1 Neut # (Auto) 5.2 Lymph # (Auto) 2.8 [place] # (Auto) 0.6 Eos # (Auto) 0.4 Baso # (Auto) 0.1 Immature Gran # (Auto) 0.03 H Absolute Nucleated RBC 0.00 Immature Gran % 0 Nucleated RBC % 0 Sodium 142 Potassium 3.6 Chloride 109 H Carbon Dioxide 21.6 Anion Gap 11 BUN 7 L Creatinine 0.7 Estim Creat Clear Calc 62.6 eGFR > 60 BUN/Creatinine Ratio 10 L Glucose 135 H Calculated Osmolality 283 Calcium 8.6 Corrected Calcium 8.9 Phosphorus 3.2 Magnesium 1.7 Total Bilirubin 0.5 AST 33 ALT 19 Alkaline Phosphatase 62 Total Protein 6.4 Albumin 3.6 Globulin 2.8 Albumin/Globulin Ratio 1.3 ABG Interpretation ABG results: 09/23/25 10:36 ABG pH 7.40 ABG pCO2 38 ABG pO2 67 L ABG HCO3 23 ABG O2 Saturation 93 ABG Base Excess -1 Assessment & Plan Assessment and plan (1) Acute ischemic cerebrovascular accident (CVA) involving left middle cerebral artery territory: Status: Acute Assessment and plan: With dense right hemiplegia and dysarthria and language deficit Waiting for insurance approval for acute rehab placement Continue with aspirin 81 mg and Plavix 75 mg along with statin Continue with range of motion exercises by the family to prevent spasticity and contracture (2) Hypertension: Status: Chronic Assessment and plan: Aggressive blood pressure control
[2025-09-26] MEDS: ATORVASTATIN CALCIUM 20 MG TABLET 80 MG PO (22:15)
[2025-09-27] VITALS (11 sets, daily range): BP systolic 125–156; BP diastolic 70–84; PULSE 90–117; RESP 14–94; TEMP 36.4–37.1; O2SAT 91–94; BMI 25.8; BMI 12.0
[2025-09-27] MEDS: HEPARIN SOD INJ 5000 UNIT/ML VIAL SC ×3 (05:27→21:11)
[2025-09-27] MEDS: INSULIN LISPRO (AdmeLOG) 1 UNIT/0.01 ML UNIT SC ×3 (07:38→16:35)
[2025-09-27] MEDS: PANTOPRAZOLE 40 MG TABLET PO (08:45)
[2025-09-27] MEDS: ASPIRIN EC 81 MG TABEC PO (08:45)
[2025-09-27] MEDS: CLOPIDOGREL BISULFATE 75 MG TABLET PO (08:46)
[2025-09-27] MEDS: ESCITALOPRAM OXALATE 10 MG TABLET PO (08:46)
[2025-09-27] MEDS: TRIMETHOPRIM/SULFA 160/800 DS TABLET 1 TAB PO ×2 (08:46→21:11)
[2025-09-27] MEDS: LOSARTAN POTASSIUM 25 MG TABLET 50 MG PO ×2 (08:46→21:10)
--- NOTE | 2025-09-27 09:16 | PC.SS ---
Acute Rehab referrals re-submitted on [facility]. Awaiting responses.
[2025-09-27] MEDS: ACETAMINOPHEN 325 MG TABLET 650 MG PO ×2 (15:15→21:16)
--- NOTE | 2025-09-27 15:33 | PD.RESPRO ---
Documentation for date of: 09/27/25 Subjective Subjective Interval history: Patient is seen and examined at bedside. No acute overnight events. Patient noted to have significant improvement in dysarthria. Still noted to have power of 0 on the left half of the body. Vitals are stable. Physical examination remains unchanged. Still pending insurance authorization. Exam Vital Signs Temp Pulse Resp BP Pulse Ox O2 Del Method FiO2 97.6 F 109 H 21 H 125/84 91 L Room Air 97 09/27/25 11:58 09/27/25 12:00 09/27/25 11:58 09/27/25 11:58 09/27/25 11:58 09/27/25 11:58 09/23/25 09:18 Narrative Exam General: Awake. HEENT: Normocephalic, atraumatic, mucous membranes moist. Heart: Regular rate and rhythm, no murmurs. Lungs: Clear to auscultation with no wheezing or crackles. Abdomen: Soft, nondistended, nontender, positive bowel sounds. ?No guarding or rebound tenderness. Neurologic: Alert and oriented x3, 0/5 power on Right side Extremities: No edema. Skin: No rash or ecchymoses. Objective Labs 09/26/25 04:27 09/26/25 04:27 ABG Interpretation ABG results: 09/23/25 10:36 ABG pH 7.40 ABG pCO2 38 ABG pO2 67 L ABG HCO3 23 ABG O2 Saturation 93 ABG Base Excess -1 Quality Measures Quality Measures stroke Suspected type of Stroke: Non Acute Last known well (date): 09/22/25 Last known well (time): 22:00 Tenecteplase given: Reason(s) Tenecteplase not given: Outside the time window not given Rehab services: PT evaluation ordered VTE Prophylaxis: pharmaceutical Antithrombotic by day 2:: ordered Statin ordered: >75 y/o moderate or high intensity dose Anticoagulation ordered for A-fib or flutter (current or hx): not indicated Advance care planning discussed with:: patient Assessment & Plan Assessment Current Active Medications: Generic Name Dose Route Start Last Admin Trade Name Freq PRN Reason Stop Dose Admin Acetaminophen 650 mg 09/23/25 11:41 09/27/25 15:15 Acetaminophen 325 Mg Tablet PO 10/23/25 11:40 650 mg Q6H PRN Administration Fever >100.3 or Mild Pain 1-3 Acetaminophen 650 mg 09/23/25 11:41 Acetaminophen Supp 650 Mg Supp SD 10/23/25 11:40 Q6H PRN PAIN SCALE 1-3 (mild Protocol Amlodipine Besylate 10 mg 09/27/25 09:00 09/27/25 08:45 Amlodipine Besylate 5 Mg Tablet PO 10/27/25 08:59 10 mg QDAY BRITNEY Administration Aspirin 81 mg 09/24/25 09:00 09/27/25 08:45 Aspirin Ec 81 Mg Tabec PO 10/24/25 08:59 81 mg QDAY BRITNEY Administration Atorvastatin Calcium 80 mg 09/23/25 21:00 09/26/25 22:15 Atorvastatin Calcium 20 Mg Tablet PO 10/23/25 20:59 80 mg HS BRITNEY Administration Clopidogrel Bisulfate 75 mg 09/24/25 09:00 09/27/25 08:46 Clopidogrel Bisulfate 75 Mg Tablet PO 10/24/25 08:59 75 mg QDAY BRITNEY Administration Dextrose 25 ml 09/23/25 15:33 Dextrose 50%-Water Inj 50 Ml Syringe IV 10/23/25 15:32 Q15MIN PRN BG 50-70 responsive npo pt Dextrose 50 ml 09/23/25 15:33 Dextrose 50%-Water Inj 50 Ml Syringe IV 10/23/25 15:32 Q15MIN PRN BG <50 OR BG <70 & pt unresponsive Escitalopram Oxalate 10 mg 09/25/25 15:15 09/27/25 08:46 Escitalopram Oxalate 10 Mg Tablet PO 10/25/25 15:14 10 mg QDAY BRITNEY Administration Glucagon 1 mg 09/23/25 15:33 Glucagon Inj 1 Mg Vial IM Q15MIN PRN BG <70, and no IV access Heparin Sodium (Porcine) 5,000 unit 09/23/25 14:00 09/27/25 14:47 Heparin Sod Inj 5000 Unit/Ml Vial SC 10/07/25 13:59 5,000 unit Q8HR BRITNEY Administration Insulin Human Lispro 0 unit 09/23/25 17:00 09/27/25 11:36 Insulin Lispro (Admelog) 1 Unit/0.01 Ml Unit SC 10/23/25 16:59 3 unit ACHS BRITNEY Administration Protocol Labetalol HCl 10 mg 09/23/25 11:47 Labetalol Inj 5 Mg/Ml Vial 20 Ml IVP 10/23/25 11:46 Q4HR PRN Hypertension Losartan Potassium 50 mg 09/26/25 09:00 09/27/25 08:46 Losartan Potassium 25 Mg Tablet PO 10/26/25 08:59 50 mg BID BRITNEY Administration Ondansetron HCl 4 mg 09/23/25 09:13 Ondansetron Inj 2 Mg/Ml Inj 2 Ml IVP 10/23/25 09:12 Q4HR PRN NAUSEA OR VOMITING Pantoprazole Sodium 40 mg 09/24/25 09:00 09/27/25 08:45 Pantoprazole 40 Mg Tablet PO 10/24/25 08:59 40 mg QDAY BRITNEY Administration Sennosides 1 tab 09/23/25 11:41 Senna Tablet PO 10/23/25 11:40 QDAY PRN constipation Protocol Trimethoprim/Sulfamethoxazole 1 tab 09/26/25 09:00 09/27/25 08:46 Trimethoprim/Sulfa 160/800 Ds Tablet PO 10/03/25 08:59 1 tab BID BRITNEY Administration Plan Patient is a [id number] 70-year-old female with a PMH of insulin-independent T2DM noncompliant on metformin, hypertension noncompliant on lisinopril, hyperlipidemia noncompliant on simvastatin, and chronic dizziness on dimenhydrinate who presented on 09/23 with a chief complaint of generalized weakness and altered mental status. Patient was admitted for the work-up and management of stroke-like symptoms (no TNK administered), hypertensive emergency, anion gap metabolic acidosis with lactic acidosis, and UTI. In-house Neurology (Dr. Martinez) was consulted and is closely following the case. 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 #Right-sided hemiplegia Per documentation by Teleneurology, patient initially presented with slurred speech and left facial droop (NIHSS 3) but this has seemed to resolve by time of this copywriter's interview (NIHSS 0) Per daughter, patient also seemed to have new right-sided weakness that is not present at baseline 09/23 CT head and CTA head/neck both negative for signs of hemorrhage or LVO TNK not administered as LKWT was 8 PM and patient was outside eligible time window Given PO Plavix loading dose of 300 mg x 1 in the ED UA suggestive of possible UTI although patient denies any urinary symptoms Dx: -Ordered HgbA1c, showed 10.0 -Ordered lipid panel, showed cholesterol 254, LDL 173 -Ordered TSH and free T4, showed 0.87 and 1.40 (both WNL) -09/23 echocardiogram was negative for PFO or ASD -09/23 stroke protocol brain MRI showed 15 mm acute infarct of the left brainstem at the pontine level as well as significant cerebral arterial sclerotic disease Rx: -PO aspirin 81 mg daily and PO Plavix 75 mg daily -PO atorvastatin 80 mg daily -Ordered PT, recom ICU patientmended physical therapy -Speech therapy following the patient - noted to have improvement in Dysarthria -Neurology (Dr. Martinez) consulted, appreciate recommendations #Enx-[id number]-[id number] diabetes mellitus type 2, uncontrolled i/s/o medication non-compliance [10%] 09/23 admission blood glucose of 300, BHB 0.3 (WNL) Patient reportedly has T2DM but has not taken her home metformin since about a year ago Dx: -HgbA1c this admission 10.0 Rx: -ISS #Anion gap metabolic acidosis, resolved #Lactic acidosis, improved 09/23 admission lactic acid 6.8 (later down-trended to 5.3) with anion gap of 17 09/24 lactic acid and anion gap down-trended to within normal limits #UTI 09/23 admission UA suggestive of UTI (3+ bacteria, positive LE) but patient denies urinary symptoms Dx: -09/23 reflex UCx grew E. coli Rx: -Bactrim 160 mg PO BID #Hyperlipidemia Self-reported history with home medication of simvastatin Dx: -Lipid panel as above Rx: -PO atorvastatin 80 mg qHS #Elevated ESR - 91 09/23 admission ESR 91 Dx: -09/24 repeat ESR ordered, showed ESR 59 #Major depressive disorder Daughter reports that patient became non-compliant with her medications after the of her about a year ago Dx: -PHQ-9 Assessment Score: 17 Rx: -Lexapro 10 mg PO qD Hospital Management: Disposition: Admitted to [facility] for stroke protocol, hypertensive emergency Diet: Carbohydrate Consistent GI Prophylaxis: PO Protonix 40 mg daily Bowel Prophylaxis: PO Senna 1 tab daily as needed DVT Prophylaxis: Subcutaneous heparin 5000 units every 8 hours CODE STATUS: Full Code Patient plan of care was discussed with the attending physician, Dr. Saritha Parikh, PGY2 Attending Provider Attestation/Addendum I have seen and examined the patient. I was physically present for the rivera portions of the services provided including history, physical exam, diagnosis, treatment plans and orders. I agree with assessment and plan of care as documented by residents. Patient seen and examined at bedside this morning. Appears comfortable and denies any new complaints. No acute overnight events. Family at bedside stated that patient's speech has been slowly improving but still not back to baseline. Right-sided weakness appears the same compared to yesterday. Vital signs and lab results remained stable. Patient is awaiting placement to SNF for continuation of physical therapy. Even though this this note was carefully revised there may still be minor errors in founder chairman and chief creative officer due to voice recognition software. Jarad Melara MD
[2025-09-27] MEDS: ATORVASTATIN CALCIUM 20 MG TABLET 80 MG PO (21:10)
--- NOTE | 2025-09-27 23:24 | PD.NEUROPROG ---
Documentation for date of: 09/27/25 Subjective Subjective Interval history: Patient was seen at the bedside with her family. Continues to have some language disfluency and right-sided weakness including face arm and leg. Exam - Neurology Vital Signs Temp Pulse Resp BP Pulse Ox O2 Del Method FiO2 98.3 F 97 14 125/70 93 L Room Air 97 09/27/25 20:00 09/27/25 21:10 09/27/25 20:00 09/27/25 21:10 09/27/25 20:00 09/27/25 20:00 09/23/25 09:18 Narrative Exam GENERAL APPEARANCE: Well hydrated, well-nourished in no acute distress. HEENT: Normocephalic, atraumatic, extraocular movements intact. Pupils: Equal reacting to light and accommodation NECK: Supple, no JVD or bruits. CARDIOVASULAR: Heart: S1, S2 heard, regular without S3-S4 or murmur no rubs or gallops. LUNGS/CHEST: Clear to auscultation bilaterally. No rails, rhonchi, or wheezing. Normal inspection. ABDOMEN: Soft, nontender, with normal bowel sounds. No pulsatile masses. No rebound, rigidity, or guarding. Normal inspection and palpation. EXTREMITIES: Normal inspection and palpation. No edema, clubbing or cyanosis. SKIN: Warm and dry without rashes. Normal inspection. MUSCULOSKELETAL: No cervical, thoracic, lumbar or midline bony tenderness. Normal inspection. NEURO: Alert, awake and oriented x2. Cranial nerves: II through XII grossly intact. Speech and language: new onset dysarthria and dysphasia but improving. Motor system: Tone and bulk: Normal: Strength: Dense right hemiplegia noted. Deep tendon reflexes: 2+ bilaterally symmetrical. Plantar reflex: Downgoing bilaterally. Sensory system: Intact to all modalities of sensation bilaterally. Coordination: Intact to cgkgiz-zwts-xdgwzs and zgjj-memt-vuyq test on the left. No ataxia, no dysmetria, or dysdiadochokinesia noted. No intention tremors noted. Gait: not tested. No signs of meningeal irritation noted. PSYCHIATRIC: Normal mood and affect. Objective Labs 09/26/25 04:27 09/26/25 04:27 ABG Interpretation ABG results: 09/23/25 10:36 ABG pH 7.40 ABG pCO2 38 ABG pO2 67 L ABG HCO3 23 ABG O2 Saturation 93 ABG Base Excess -1 Assessment & Plan Assessment and plan (1) Acute ischemic cerebrovascular accident (CVA) involving left middle cerebral artery territory: Status: Acute Assessment and plan: With dense right hemiplegia and dysarthria and language deficit Waiting for insurance approval for acute rehab placement Continue with aspirin 81 mg and Plavix 75 mg along with statin Continue with range of motion exercises by the family to prevent spasticity and contracture (2) Hypertension: Status: Chronic Assessment and plan: Aggressive blood pressure control
[2025-09-28] VITALS (10 sets, daily range): BP systolic 107–125; BP diastolic 65–82; PULSE 80–95; RESP 16–20; TEMP 36.1–36.5; O2SAT 92–95; BMI 25.9; BMI 12.0
--- NOTE | 2025-09-28 08:09 | PC.SS ---
Following acute rehabs are not contracted with patient's insurance: [facility] and [facility]. Family aware that if acute rehabs are not contracted with patient's insurance then plan is for the patient to transition to SNF. Preferred SNF is [facility].
--- NOTE | 2025-09-28 08:29 | PC.SS ---
Addendum entered by Kassy Hill 09/28/25 12:40: SS follow up note; SS was contacted by patient's nurse informing SS that patient has not had bowl movement. SS contacted Dr. Muhammad and she informed SS she would order medication for patient. SS followed up with patient's insurance [employer] and left Voicemail with SS contact Number. Addendum entered by Kassy Hill 09/28/25 09:50: SS follow up note; SS contacted patient's Insurance [employer] and spoke to Ximena she informed SS she had not received any clinicals at the time SS informed her SS would be sending updated clinicals. SS contacted Jackelyn and updated her. SS will stand by for further needs. Addendum entered by Kassy Hill 09/28/25 08:47: SS follow up note; SS sent SNF referral through [email or web address] platform. SS requested [facility] to submit for auth. Original Note: SS follow up note; SS contacted patients son and he provided SS with patients daughter, Sophia's contact number and informed her that SS would submit to SNF due to Acute Rehabs not accepting patient. Sophia's agreeable and informed SS that she would like patient to discharge to [facility]. SS will sent out SNF referral to [facility]. SS contacted Eve and updated her. Eve informed SS they will submit for auth once SS sends Clinicals and PASSR.
[2025-09-28] MEDS: INSULIN LISPRO (AdmeLOG) 1 UNIT/0.01 ML UNIT SC ×2 (08:44→17:44)
[2025-09-28] MEDS: TRIMETHOPRIM/SULFA 160/800 DS TABLET 1 TAB PO (09:31)
[2025-09-28] MEDS: ESCITALOPRAM OXALATE 10 MG TABLET PO (09:31)
[2025-09-28] MEDS: PANTOPRAZOLE 40 MG TABLET PO (09:32)
[2025-09-28] MEDS: ASPIRIN EC 81 MG TABEC PO (09:32)
[2025-09-28] MEDS: LOSARTAN POTASSIUM 25 MG TABLET 50 MG PO (09:32)
[2025-09-28] MEDS: CLOPIDOGREL BISULFATE 75 MG TABLET PO (09:32)
[2025-09-28] MEDS: HEPARIN SOD INJ 5000 UNIT/ML VIAL SC ×2 (13:09→21:06)
--- NOTE | 2025-09-28 14:10 | PD.RESDS ---
Planned Discharge Date 09/28/25 DS: Providers Provider Date of admission: 09/23/25 11:41 Primary care physician: Feliberto Garibay PA-C Admitting Provider: Jarad Melara MD Attending Provider on Admission: Jarad Melara MD Consults: 09/23/25 09:13 Consult to Neurology / Tele-Neurology Routine Comment: Consulting Provider: [facility] 09/23/25 12:34 Referral Speech Therapy Stat Comment: 09/23/25 16:03 Referral Speech Therapy Routine Comment: stroke r/o 09/23/25 16:04 Referral Physical Therapy Routine Comment: stroke r/o Physician Instructions: Instructions: history of generalized R sided weakness and diabetes 09/24/25 08:11 Consult to Neurology / Tele-Neurology Routine Comment: CVA R/O Consulting Provider: Parker Martinez 09/24/25 09:00 Referral Registered Dietitian Routine Comment: HgbA1c 10.0 Attending Provider on DC: Bre Encinas MD Discharging Provider: Bharath Stallings MD DS: Diagnosis Problem List Completed Was Problem List Reviewed/Reconciled?: Yes Hospital Course Hospital Course Hospital course: Summary: Patient is a -year-old with a past medical history of who was admitted on with a chief complaint of . Hospital: During patient's hospital course, the main medical diagnoses addressed were . In terms of (medical diagnosis #1), patient had ___ performed. In terms of (medical diagnosis #2), patient had ___ performed. Patient is safe to discharge. Further discharge instructions below. # # # Status at Discharge Cognitive/Behavioral Status at Discharge: stable Functional Status at Discharge: independent ambulation Overall Status at Discharge: patient is back to baseline Patient's care plan was discussed with my attending, Dr. Encinas, and senior resident, Dr. Muhammad. Bharath Stallings, DO Internal Medicine, PGY-1 Time Spent with Patient Time attestation: Total time spent providing and/or coordinating discharge services: Exam Vital Signs Temp Pulse Resp BP Pulse Ox O2 Del Method FiO2 97.7 F 92 17 123/65 93 L Room Air 97 09/28/25 12:00 09/28/25 12:00 09/28/25 12:00 09/28/25 12:00 09/28/25 12:00 09/28/25 12:00 09/23/25 09:18 Discharge Plan Plan Patient Disposition: Xfer Skilled Nsg Fac (SNF) Patient condition on transfer: Stable Prescriptions/Referrals Prescriptions/Med Rec: No Action No Known Home Medications Referrals: Vinh Garibay PA-C [Primary Care Provider, Medical] Patient/Caregiver Discharge Instructions Education Materials: Controlling High Blood Pressure, Diabetes and Heart Disease, What Is Ischemic Stroke?, Stroke: Resources and Support, Blood Pressure Check Steps Print Language: Iranian Stand Alone Forms: Violet Award Info., Patient Portal Info Letter Discharge Order Discharge Orders: Discharge (Routine); Ordered 09/28/25 Ordered By: Johnny Parikh
--- NOTE | 2025-09-28 14:12 | PC.SS ---
Addendum entered by Kassy Hill 09/28/25 16:04: SS follow up note; SS attempted to contact patient's insurance [employer]. SS left voicemail with SS contact number. SS contacted Dr. Parikh and she informed SS that she has not been contacted by patient's insurance yet. SS will stand by for further needs. Original Note: SS follow up note; SS was contacted by Jackelyn from [facility], informing SS that patient's insurance declined SNF placement, however Insurance was requesting a Peer to Peer. SS contacted [employer] and spoke to Aissatou. SS provided Dr. Parikh's contact number. Aissatou informed SS to inform Dr. Parikh that their DrJesus would we contacted her soon. SS verbalized understanding in updated Dr. Parikh.
--- NOTE | 2025-09-28 17:47 | ESPR_ITS ---
<Statement entered by Bre Encinas MD - 10/13/25 07:51> I reviewed above note and agree with findings and plans. I have also personally examined the patient with medicine team and went over assessment and plan with medical team including pr internship and resident physician. <Statement entered by Susanne Muhammad MD - 09/29/25 07:25> Patient was seen and examined by me personally. I have directly supervised and reviewed documentation by the team resident and agree with its findings with any exceptions or additional findings as below. Plan of care was discussed with the attending, Dr. Encinas. Pending insurance authorization for SNF placement. Susanne Muhammad, PGY-3 Documentation for date of: 09/28/25 Subjective Subjective Interval history: No overnight events. Patient was examined at bedside; they appear A&Ox3 and in NAD. She continues to have no muscle strength of the left half of the body. Patient has been medically cleared and is only pending insurance authorization for placement at [facility]. Exam Vital Signs Temp Pulse Resp BP Pulse Ox O2 Del Method FiO2 97.7 F 92 17 123/65 93 L Room Air 97 09/28/25 12:00 09/28/25 12:00 09/28/25 12:00 09/28/25 12:00 09/28/25 12:00 09/28/25 12:00 09/23/25 09:18 Narrative Exam General: Awake. HEENT: Normocephalic, atraumatic, mucous membranes moist. Heart: Regular rate and rhythm, no murmurs. Lungs: Clear to auscultation with no wheezing or crackles. Abdomen: Soft, nondistended, nontender, positive bowel sounds. ?No guarding or rebound tenderness. Neurologic: Alert and oriented x3, 0/5 power on Right side Extremities: No edema. Skin: No rash or ecchymoses. Objective Labs 09/26/25 04:27 09/26/25 04:27 ABG Interpretation ABG results: 09/23/25 10:36 ABG pH 7.40 ABG pCO2 38 ABG pO2 67 L ABG HCO3 23 ABG O2 Saturation 93 ABG Base Excess -1 Quality Measures Quality Measures stroke Suspected type of Stroke: Non Acute Last known well (date): 09/22/25 Last known well (time): 22:00 Tenecteplase given: Reason(s) Tenecteplase not given: Outside the time window not given Rehab services: PT evaluation ordered and Speech Language Pathology eval ordered VTE Prophylaxis: pharmaceutical Antithrombotic by day 2:: not indicated (describe) Statin ordered: <75 y/o high intensity dose Anticoagulation ordered for A-fib or flutter (current or hx): not indicated Advance care planning discussed with:: patient Assessment & Plan Assessment Current Active Medications: Generic Name Dose Route Start Last Admin Trade Name Freq PRN Reason Stop Dose Admin Acetaminophen 650 mg 09/23/25 11:41 09/27/25 21:16 Acetaminophen 325 Mg Tablet PO 10/23/25 11:40 650 mg Q6H PRN Administration Fever >100.3 or Mild Pain 1-3 Acetaminophen 650 mg 09/23/25 11:41 Acetaminophen Supp 650 Mg Supp AR 10/23/25 11:40 Q6H PRN PAIN SCALE 1-3 (mild Protocol Amlodipine Besylate 10 mg 09/27/25 09:00 09/28/25 09:31 Amlodipine Besylate 5 Mg Tablet PO 10/27/25 08:59 10 mg QDAY BRITNEY Administration Aspirin 81 mg 09/24/25 09:00 09/28/25 09:32 Aspirin Ec 81 Mg Tabec PO 10/24/25 08:59 81 mg QDAY BRITNEY Administration Atorvastatin Calcium 80 mg 09/23/25 21:00 09/27/25 21:10 Atorvastatin Calcium 20 Mg Tablet PO 10/23/25 20:59 80 mg HS BRITNEY Administration Clopidogrel Bisulfate 75 mg 09/24/25 09:00 09/28/25 09:32 Clopidogrel Bisulfate 75 Mg Tablet PO 10/24/25 08:59 75 mg QDAY BRITNEY Administration Dextrose 25 ml 09/23/25 15:33 Dextrose 50%-Water Inj 50 Ml Syringe IV 10/23/25 15:32 Q15MIN PRN BG 50-70 responsive npo pt Dextrose 50 ml 09/23/25 15:33 Dextrose 50%-Water Inj 50 Ml Syringe IV 10/23/25 15:32 Q15MIN PRN BG <50 OR BG <70 & pt unresponsive Escitalopram Oxalate 10 mg 09/25/25 15:15 09/28/25 09:31 Escitalopram Oxalate 10 Mg Tablet PO 10/25/25 15:14 10 mg QDAY BRITNEY Administration Glucagon 1 mg 09/23/25 15:33 Glucagon Inj 1 Mg Vial IM Q15MIN PRN BG <70, and no IV access Heparin Sodium (Porcine) 5,000 unit 09/23/25 14:00 09/28/25 13:09 Heparin Sod Inj 5000 Unit/Ml Vial SC 10/07/25 13:59 5,000 unit Q8HR BRITNEY Administration Insulin Human Lispro 0 unit 09/23/25 17:00 09/28/25 11:38 Insulin Lispro (Admelog) 1 Unit/0.01 Ml Unit SC 10/23/25 16:59 Not Given ACHS BRITNEY Protocol Labetalol HCl 10 mg 09/23/25 11:47 Labetalol Inj 5 Mg/Ml Vial 20 Ml IVP 10/23/25 11:46 Q4HR PRN Hypertension Losartan Potassium 50 mg 09/26/25 09:00 09/28/25 09:32 Losartan Potassium 25 Mg Tablet PO 10/26/25 08:59 50 mg BID BRITNEY Administration Ondansetron HCl 4 mg 09/23/25 09:13 Ondansetron Inj 2 Mg/Ml Inj 2 Ml IVP 10/23/25 09:12 Q4HR PRN NAUSEA OR VOMITING Pantoprazole Sodium 40 mg 09/24/25 09:00 09/28/25 09:32 Pantoprazole 40 Mg Tablet PO 10/24/25 08:59 40 mg QDAY BRITNEY Administration Sennosides 1 tab 09/23/25 11:41 Senna Tablet PO 10/23/25 11:40 QDAY PRN constipation Protocol Plan Patient is a xas-Pezrgwq-pnphkhyz 70-year-old female with a PMH of insulin- independent T2DM noncompliant on metformin, hypertension noncompliant on lisinopril, hyperlipidemia noncompliant on simvastatin, and chronic dizziness on dimenhydrinate who presented on 09/23 with a chief complaint of generalized weakness and altered mental status. Patient was admitted for the work-up and management of stroke-like symptoms (no TNK administered), hypertensive emergency, anion gap metabolic acidosis with lactic acidosis, and UTI. In-house Neurology (Dr. Martinez) was consulted and is closely following the case. #Hypertensive emergency #Primary hypertension, uncontrolled i/s/o medication non-compliance 09/23 admission BP 199/76 with signs of end-organ damage including altered mental status and lactic acidosis Patient apparently has home medication of lisinopril but has not taken it since about a year ago Rx: -Losartan 50 mg PO BID -Amlodipine 10 mg PO qD -Labetalol 10 mg IV prn for SBP>180 or DBP>120 #CVA, acute infarct of the left brainstem at the pontine level #Right-sided hemiplegia Per documentation by Teleneurology, patient initially presented with slurred speech and left facial droop (NIHSS 3) but this has seemed to resolve by time of this insurance writer's interview (NIHSS 0) Per daughter, patient also seemed to have new right-sided weakness that is not present at baseline 09/23 CT head and CTA head/neck both negative for signs of hemorrhage or LVO TNK not administered as LKWT was 8 PM and patient was outside eligible time window Given PO Plavix loading dose of 300 mg x 1 in the ED UA suggestive of possible UTI although patient denies any urinary symptoms Dx: -Ordered HgbA1c, showed 10.0 -Ordered lipid panel, showed cholesterol 254, LDL 173 -Ordered TSH and free T4, showed 0.87 and 1.40 (both WNL) -09/23 echocardiogram was negative for PFO or ASD -09/23 stroke protocol brain MRI showed 15 mm acute infarct of the left brainstem at the pontine level as well as significant cerebral arterial sclerotic disease Rx: -PO aspirin 81 mg daily and PO Plavix 75 mg daily -PO atorvastatin 80 mg daily -Ordered PT, recom ICU patientmended physical therapy -Speech therapy following the patient - noted to have improvement in Dysarthria -Neurology (Dr. Martinez) consulted, appreciate recommendations #Jiy-ajsoxza-ohfxurfub diabetes mellitus type 2, uncontrolled i/s/o medication non-compliance [10%] 09/23 admission blood glucose of 300, BHB 0.3 (WNL) Patient reportedly has T2DM but has not taken her home metformin since about a year ago Dx: -HgbA1c this admission 10.0 Rx: -ISS #Anion gap metabolic acidosis, resolved #Lactic acidosis, improved 09/23 admission lactic acid 6.8 (later down-trended to 5.3) with anion gap of 17 09/24 lactic acid and anion gap down-trended to within normal limits #UTI 09/23 admission UA suggestive of UTI (3+ bacteria, positive LE) but patient denies urinary symptoms Dx: -09/23 reflex UCx grew E. coli Rx: -Discontinued Bactrim 160 mg PO BID (already received over 5 days of antibiotic therapy) #Hyperlipidemia Self-reported history with home medication of simvastatin Dx: -Lipid panel as above Rx: -PO atorvastatin 80 mg qHS #Elevated ESR - 91 09/23 admission ESR 91 Dx: -09/24 repeat ESR ordered, showed ESR 59 #Major depressive disorder Daughter reports that patient became non-compliant with her medications after the of her about a year ago Dx: -PHQ-9 Assessment Score: 17 Rx: -Lexapro 10 mg PO qD Hospital Management: Disposition: Admitted to [facility] for stroke protocol, hypertensive emergency Diet: Carbohydrate Consistent GI Prophylaxis: PO Protonix 40 mg daily Bowel Prophylaxis: PO Senna 1 tab daily as needed DVT Prophylaxis: Subcutaneous heparin 5000 units every 8 hours CODE STATUS: Full Code Patient plan of care was discussed with the attending physician Dr. Encinas and senior resident Dr. Jb Stallings, DO PGY-1
[2025-09-28] MEDS: ACETAMINOPHEN 325 MG TABLET 650 MG PO (19:45)
[2025-09-28] MEDS: ATORVASTATIN CALCIUM 20 MG TABLET 80 MG PO (21:03)
[2025-09-29] VITALS (7 sets, daily range): BP systolic 99–122; BP diastolic 60–75; PULSE 80–95; RESP 15–22; TEMP 36.1–36.8; O2SAT 93–95; BMI 25.9; BMI 12.0
--- NOTE | 2025-09-29 00:09 | PD.NEUROPROG ---
Documentation for date of: 09/28/25 Subjective Subjective Interval history: Patient was seen at the bedside with her family. Continues to have some language disfluency and right-sided weakness including face arm and leg. Exam - Neurology Vital Signs Temp Pulse Resp BP Pulse Ox O2 Del Method FiO2 97.0 F 93 20 107/67 95 Room Air 97 09/28/25 20:50 09/28/25 21:06 09/28/25 20:50 09/28/25 21:06 09/28/25 20:50 09/28/25 20:50 09/23/25 09:18 Narrative Exam GENERAL APPEARANCE: Well hydrated, well-nourished in no acute distress. HEENT: Normocephalic, atraumatic, extraocular movements intact. Pupils: Equal reacting to light and accommodation NECK: Supple, no JVD or bruits. CARDIOVASULAR: Heart: S1, S2 heard, regular without S3-S4 or murmur no rubs or gallops. LUNGS/CHEST: Clear to auscultation bilaterally. No rails, rhonchi, or wheezing. Normal inspection. ABDOMEN: Soft, nontender, with normal bowel sounds. No pulsatile masses. No rebound, rigidity, or guarding. Normal inspection and palpation. EXTREMITIES: Normal inspection and palpation. No edema, clubbing or cyanosis. SKIN: Warm and dry without rashes. Normal inspection. MUSCULOSKELETAL: No cervical, thoracic, lumbar or midline bony tenderness. Normal inspection. NEURO: Alert, awake and oriented x2. Cranial nerves: II through XII grossly intact. Speech and language: new onset dysarthria and dysphasia but improving. Motor system: Tone and bulk: Normal: Strength: Dense right hemiplegia noted. Deep tendon reflexes: 2+ bilaterally symmetrical. Plantar reflex: Downgoing bilaterally. Sensory system: Intact to all modalities of sensation bilaterally. Coordination: Intact to bnbsol-mtog-fyqiji and juyo-kbhb-woek test on the left. No ataxia, no dysmetria, or dysdiadochokinesia noted. No intention tremors noted. Gait: not tested. No signs of meningeal irritation noted. PSYCHIATRIC: Normal mood and affect. Objective Labs 09/26/25 04:27 09/26/25 04:27 ABG Interpretation ABG results: 09/23/25 10:36 ABG pH 7.40 ABG pCO2 38 ABG pO2 67 L ABG HCO3 23 ABG O2 Saturation 93 ABG Base Excess -1 Assessment & Plan Assessment and plan (1) Acute CVA (cerebrovascular accident): Status: Acute Assessment and plan: MRI brain showed acute infarction in the left Julio. COntinue with DAPT and statin and BP control With dense hemiplegis Will need acute rehab at least for few weeks. (2) Hypertension: Status: Chronic Assessment and plan: better controlled now.
[2025-09-29] MEDS: HEPARIN SOD INJ 5000 UNIT/ML VIAL SC ×3 (05:23→21:29)
[2025-09-29] MEDS: INSULIN LISPRO (AdmeLOG) 1 UNIT/0.01 ML UNIT SC ×2 (07:51→21:28)
[2025-09-29] MEDS: LOSARTAN POTASSIUM 25 MG TABLET 50 MG PO (08:23)
[2025-09-29] MEDS: ESCITALOPRAM OXALATE 10 MG TABLET PO (08:23)
[2025-09-29] MEDS: PANTOPRAZOLE 40 MG TABLET PO (08:23)
[2025-09-29] MEDS: CLOPIDOGREL BISULFATE 75 MG TABLET PO (08:23)
[2025-09-29] MEDS: ASPIRIN 81 MG CHEW PO (08:30)
--- NOTE | 2025-09-29 08:54 | PC.SS ---
Update: Peer to peer phone conversation is pending.
[2025-09-29] MEDS: ACETAMINOPHEN 325 MG TABLET 650 MG PO (13:59)
[2025-09-29] MEDS: LIDOCAINE 5% 1 PATCH TOP (15:53)
--- NOTE | 2025-09-29 16:15 | ESPR_ITS ---
<Statement entered by Bre Encinas MD - 10/13/25 07:52> I reviewed above note and agree with findings and plans. I have also personally examined the patient with medicine team and went over assessment and plan with medical team including risk management internship and resident physician. <Statement entered by Susanne Muhammad MD - 09/29/25 16:55> Patient was seen and examined by me personally. I have directly supervised and reviewed documentation by the team resident and agree with its findings with any exceptions or additional findings as below. Plan of care was discussed with the attending, Dr. Encinas. Patient still pending insurance authorization for SNF placement. social services director reached out to insurance for [id number] and still waiting for their call back. Susanne Muhammad, PGY-3 Documentation for date of: 09/29/25 Subjective Subjective Interval history: No overnight events. Patient was examined at bedside; they appear A&Ox3 and in NAD. Vitals WNL and no labs were drawn for the day. Today, daughter expressed concern regarding patient's eyes and eye-tracking. On physical exam, right-sided extraocular movements were noted to be impaired with the left-side being intact. Exam was otherwise benign. It is suspected that patient may have had this finding earlier s/p stroke but due to her general drowsiness and her eyes being frequently closed that the finding had not been noticed earlier. Patient remains medically cleared and will be discharged pending insurance authorization to acute rehab. Exam Vital Signs Temp Pulse Resp BP Pulse Ox O2 Del Method FiO2 98.2 F 88 18 103/63 93 L Room Air 97 09/29/25 12:00 09/29/25 12:00 09/29/25 12:00 09/29/25 12:00 09/29/25 12:00 09/29/25 12:00 09/23/25 09:18 Narrative Exam General: Awake. HEENT: Normocephalic, atraumatic, mucous membranes moist. Heart: Regular rate and rhythm, no murmurs. Lungs: Clear to auscultation with no wheezing or crackles. Abdomen: Soft, nondistended, nontender, positive bowel sounds. ?No guarding or rebound tenderness. Neurologic: Right-sided extraocular movements impaired with left-side intact. Alert and oriented x3, 0/5 power on Right side Extremities: No edema. Skin: No rash or ecchymoses. Objective Labs 09/26/25 04:27 09/26/25 04:27 ABG Interpretation ABG results: 09/23/25 10:36 ABG pH 7.40 ABG pCO2 38 ABG pO2 67 L ABG HCO3 23 ABG O2 Saturation 93 ABG Base Excess -1 Quality Measures Quality Measures stroke Suspected type of Stroke: Non Acute Last known well (date): 09/22/25 Last known well (time): 22:00 Tenecteplase given: Reason(s) Tenecteplase not given: Outside the time window not given Rehab services: PT evaluation ordered and Speech Language Pathology eval ordered VTE Prophylaxis: pharmaceutical Antithrombotic by day 2:: not indicated (describe) Statin ordered: <75 y/o high intensity dose Anticoagulation ordered for A-fib or flutter (current or hx): not indicated Advance care planning discussed with:: patient Assessment & Plan Assessment Current Active Medications: Generic Name Dose Route Start Last Admin Trade Name Freq PRN Reason Stop Dose Admin Acetaminophen 650 mg 09/23/25 11:41 09/29/25 13:59 Acetaminophen 325 Mg Tablet PO 10/23/25 11:40 650 mg Q6H PRN Administration Fever >100.3 or Mild Pain 1-3 Acetaminophen 650 mg 09/23/25 11:41 Acetaminophen Supp 650 Mg Supp VA 10/23/25 11:40 Q6H PRN PAIN SCALE 1-3 (mild Protocol Aspirin 81 mg 09/29/25 09:00 09/29/25 08:30 Aspirin 81 Mg Chew PO 10/24/25 08:59 81 mg QDAY BRITNEY Administration Atorvastatin Calcium 80 mg 09/23/25 21:00 09/28/25 21:03 Atorvastatin Calcium 20 Mg Tablet PO 10/23/25 20:59 80 mg HS BRITNEY Administration Clopidogrel Bisulfate 75 mg 09/24/25 09:00 09/29/25 08:23 Clopidogrel Bisulfate 75 Mg Tablet PO 10/24/25 08:59 75 mg QDAY BRITNEY Administration Dextrose 25 ml 09/23/25 15:33 Dextrose 50%-Water Inj 50 Ml Syringe IV 10/23/25 15:32 Q15MIN PRN BG 50-70 responsive npo pt Dextrose 50 ml 09/23/25 15:33 Dextrose 50%-Water Inj 50 Ml Syringe IV 10/23/25 15:32 Q15MIN PRN BG <50 OR BG <70 & pt unresponsive Escitalopram Oxalate 10 mg 09/25/25 15:15 09/29/25 08:23 Escitalopram Oxalate 10 Mg Tablet PO 10/25/25 15:14 10 mg QDAY BRITNEY Administration Glucagon 1 mg 09/23/25 15:33 Glucagon Inj 1 Mg Vial IM Q15MIN PRN BG <70, and no IV access Heparin Sodium (Porcine) 5,000 unit 09/23/25 14:00 09/29/25 14:00 Heparin Sod Inj 5000 Unit/Ml Vial SC 10/07/25 13:59 5,000 unit Q8HR BRITNEY Administration Insulin Human Lispro 0 unit 09/23/25 17:00 09/29/25 13:55 Insulin Lispro (Admelog) 1 Unit/0.01 Ml Unit SC 10/23/25 16:59 Not Given ACHS [facility] Protocol Labetalol HCl 10 mg 09/23/25 11:47 Labetalol Inj 5 Mg/Ml Vial 20 Ml IVP 10/23/25 11:46 Q4HR PRN Hypertension Losartan Potassium 50 mg 09/30/25 09:00 Losartan Potassium 25 Mg Tablet PO 10/30/25 08:59 QDAY BRITNEY Ondansetron HCl 4 mg 09/23/25 09:13 Ondansetron Inj 2 Mg/Ml Inj 2 Ml IVP 10/23/25 09:12 Q4HR PRN NAUSEA OR VOMITING Pantoprazole Sodium 40 mg 09/24/25 09:00 09/29/25 08:23 Pantoprazole 40 Mg Tablet PO 10/24/25 08:59 40 mg QDAY BRITNEY Administration Sennosides 1 tab 09/23/25 11:41 Senna Tablet PO 10/23/25 11:40 QDAY PRN constipation Protocol Plan Patient is a [id number] 70-year-old female with a PMH of insulin- independent T2DM noncompliant on metformin, hypertension noncompliant on lisinopril, hyperlipidemia noncompliant on simvastatin, and chronic dizziness on dimenhydrinate who presented on 09/23 with a chief complaint of generalized weakness and altered mental status. Patient was admitted for the work-up and management of stroke-like symptoms (no TNK administered), hypertensive emergency, anion gap metabolic acidosis with lactic acidosis, and UTI. In-house Neurology (Dr. Martinez) was consulted and is closely following the case. #Hypertensive emergency #Primary hypertension, uncontrolled i/s/o medication non-compliance 09/23 admission BP 199/76 with signs of end-organ damage including altered mental status and lactic acidosis Patient apparently has home medication of lisinopril but has not taken it since about a year ago Rx: -Losartan 50 mg PO BID -Amlodipine 10 mg PO qD -Labetalol 10 mg IV prn for SBP>180 or DBP>120 #CVA, acute infarct of the left brainstem at the pontine level #Right-sided hemiplegia Per documentation by Teleneurology, patient initially presented with slurred speech and left facial droop (NIHSS 3) but this has seemed to resolve by time of this senior mortgage underwriter's interview (NIHSS 0) Per daughter, patient also seemed to have new right-sided weakness that is not present at baseline 09/23 CT head and CTA head/neck both negative for signs of hemorrhage or LVO TNK not administered as LKWT was 8 PM and patient was outside eligible time window Given PO Plavix loading dose of 300 mg x 1 in the ED UA suggestive of possible UTI although patient denies any urinary symptoms Dx: -Ordered HgbA1c, showed 10.0 -Ordered lipid panel, showed cholesterol 254, LDL 173 -Ordered TSH and free T4, showed 0.87 and 1.40 (both WNL) -09/23 echocardiogram was negative for PFO or ASD -09/23 stroke protocol brain MRI showed 15 mm acute infarct of the left brainstem at the pontine level as well as significant cerebral arterial sclerotic disease Rx: -PO aspirin 81 mg daily and PO Plavix 75 mg daily -PO atorvastatin 80 mg daily -Ordered PT, recom ICU patientmended physical therapy -Speech therapy following the patient - noted to have improvement in Dysarthria -Neurology (Dr. Martinez) consulted, appreciate recommendations #Rvz-breqcmq-gjjxvewde diabetes mellitus type 2, uncontrolled i/s/o medication non-compliance [10%] 09/23 admission blood glucose of 300, BHB 0.3 (WNL) Patient reportedly has T2DM but has not taken her home metformin since about a year ago Dx: -HgbA1c this admission 10.0 Rx: -ISS #Anion gap metabolic acidosis, resolved #Lactic acidosis, improved 09/23 admission lactic acid 6.8 (later down-trended to 5.3) with anion gap of 17 09/24 lactic acid and anion gap down-trended to within normal limits #UTI 09/23 admission UA suggestive of UTI (3+ bacteria, positive LE) but patient denies urinary symptoms Dx: -09/23 reflex UCx grew E. coli Rx: -Discontinued Bactrim 160 mg PO BID (already received over 5 days of antibiotic therapy) #Hyperlipidemia Self-reported history with home medication of simvastatin Dx: -Lipid panel as above Rx: -PO atorvastatin 80 mg qHS #Elevated ESR - 91 09/23 admission ESR 91 Dx: -09/24 repeat ESR ordered, showed ESR 59 #Major depressive disorder Daughter reports that patient became non-compliant with her medications after the of her about a year ago Dx: -PHQ-9 Assessment Score: 17 Rx: -Lexapro 10 mg PO qD Hospital Management: Disposition: Admitted to [facility] for stroke protocol, hypertensive emergency, pending insurance authorization for SNF placement Diet: Carbohydrate Consistent GI Prophylaxis: PO Protonix 40 mg daily Bowel Prophylaxis: PO Senna 1 tab daily as needed DVT Prophylaxis: Subcutaneous heparin 5000 units every 8 hours CODE STATUS: Full Code Patient plan of care was discussed with the attending physician Dr. Encinas and senior resident Dr. Jb Stallings, DO PGY-1
--- NOTE | 2025-09-29 16:19 | ESPR_ITS ---
Documentation for date of: 09/29/25 Subjective Subjective Interval history: Ms Newsome is a 68-year-old female past medical history significant for hypertension, sew-ahwasnl-wzeovmgla diabetes mellitus type 2, hyperlipidemia noncompliant on medication who presents today with a chief complaint of weakness, slurred speech and left facial droop. She was admitted for stroke workup on 09/23/2025 09/28/2025: Patient was seen at the bedside with her family. Continues to have some language disfluency and right-sided weakness including face arm and leg. 09/29/2025: MRIB showed LT julio infarct, son aware. Patent is more alert and following with her eyes, moving neck slowly. she is responsing with 2-3 words and shows comprehjension. Still feels weak, which is expected after stroke. She will need acute rehab on DC, primary team wiating on insurance authorization at this time for placement. Son understands diagnosis and prognosis. Recommend to continue DAPT + Statin therapy upon discharge and good BP control. Recommend outpatient neuroology follow up post DC. Exam Vital Signs Temp Pulse Resp BP Pulse Ox O2 Del Method FiO2 98.2 F 88 18 103/63 93 L Room Air 97 09/29/25 12:00 09/29/25 12:00 09/29/25 12:00 09/29/25 12:00 09/29/25 12:00 09/29/25 12:00 09/23/25 09:18 Narrative Exam GENERAL APPEARANCE: Well hydrated, well-nourished in no acute distress. HEENT: Normocephalic, atraumatic, extraocular movements intact. Pupils: Equal reacting to light and accommodation NECK: Supple, no JVD or bruits. CARDIOVASULAR: Heart: S1, S2 heard, regular without S3-S4 or murmur no rubs or gallops. LUNGS/CHEST: Clear to auscultation bilaterally. No rails, rhonchi, or wheezing. Normal inspection. ABDOMEN: Soft, nontender, with normal bowel sounds. No pulsatile masses. No rebound, rigidity, or guarding. Normal inspection and palpation. EXTREMITIES: Normal inspection and palpation. No edema, clubbing or cyanosis. SKIN: Warm and dry without rashes. Normal inspection. MUSCULOSKELETAL: No cervical, thoracic, lumbar or midline bony tenderness. Normal inspection. NEURO: Alert, awake and oriented x2. Cranial nerves: II through XII grossly intact. Speech and language: new onset dysarthria and dysphasia but improving. Motor system: Tone and bulk: Normal: Strength: Dense right hemiplegia noted. Deep tendon reflexes: 2+ bilaterally symmetrical. Plantar reflex: Downgoing bilaterally. Sensory system: Intact to all modalities of sensation bilaterally. Coordination: Intact to rhfjfw-pwbs-ijgzxr and ifkf-ffoz-ergw test on the left. No ataxia, no dysmetria, or dysdiadochokinesia noted. No intention tremors noted. Gait: not tested. No signs of meningeal irritation noted. PSYCHIATRIC: Normal mood and affect. Objective Labs 10/07/25 05:30 10/07/25 05:30 ABG Interpretation ABG results: 09/23/25 10:36 ABG pH 7.40 ABG pCO2 38 ABG pO2 67 L ABG HCO3 23 ABG O2 Saturation 93 ABG Base Excess -1 Quality Measures Quality Measures stroke Suspected type of Stroke: Non Acute Last known well (date): 09/22/25 Last known well (time): 22:00 Tenecteplase given: Reason(s) Tenecteplase not given: Outside the time window not given Rehab services: PT evaluation ordered VTE Prophylaxis: pharmaceutical Antithrombotic by day 2:: ordered Statin ordered: <75 y/o high intensity dose Anticoagulation ordered for A-fib or flutter (current or hx): ordered Advance care planning discussed with:: patient and child Assessment & Plan Assessment Current Active Medications: Generic Name Dose Route Start Last Admin Trade Name Freq PRN Reason Stop Dose Admin Acetaminophen 650 mg 09/23/25 11:41 09/29/25 13:59 Acetaminophen 325 Mg Tablet PO 10/23/25 11:40 650 mg Q6H PRN Administration Fever >100.3 or Mild Pain 1-3 Acetaminophen 650 mg 09/23/25 11:41 Acetaminophen Supp 650 Mg Supp ME 10/23/25 11:40 Q6H PRN PAIN SCALE 1-3 (mild Protocol Aspirin 81 mg 09/29/25 09:00 09/29/25 08:30 Aspirin 81 Mg Chew PO 10/24/25 08:59 81 mg QDAY BRITNEY Administration Atorvastatin Calcium 80 mg 09/23/25 21:00 09/28/25 21:03 Atorvastatin Calcium 20 Mg Tablet PO 10/23/25 20:59 80 mg HS BRITNEY Administration Clopidogrel Bisulfate 75 mg 09/24/25 09:00 09/29/25 08:23 Clopidogrel Bisulfate 75 Mg Tablet PO 10/24/25 08:59 75 mg QDAY BRITNEY Administration Dextrose 25 ml 09/23/25 15:33 Dextrose 50%-Water Inj 50 Ml Syringe IV 10/23/25 15:32 Q15MIN PRN BG 50-70 responsive npo pt Dextrose 50 ml 09/23/25 15:33 Dextrose 50%-Water Inj 50 Ml Syringe IV 10/23/25 15:32 Q15MIN PRN BG <50 OR BG <70 & pt unresponsive Escitalopram Oxalate 10 mg 09/25/25 15:15 09/29/25 08:23 Escitalopram Oxalate 10 Mg Tablet PO 10/25/25 15:14 10 mg QDAY BRITNEY Administration Glucagon 1 mg 09/23/25 15:33 Glucagon Inj 1 Mg Vial IM Q15MIN PRN BG <70, and no IV access Heparin Sodium (Porcine) 5,000 unit 09/23/25 14:00 09/29/25 14:00 Heparin Sod Inj 5000 Unit/Ml Vial SC 10/07/25 13:59 5,000 unit Q8HR BRITNEY Administration Insulin Human Lispro 0 unit 09/23/25 17:00 09/29/25 13:55 Insulin Lispro (Admelog) 1 Unit/0.01 Ml Unit SC 10/23/25 16:59 Not Given ACHS [facility] Protocol Labetalol HCl 10 mg 09/23/25 11:47 Labetalol Inj 5 Mg/Ml Vial 20 Ml IVP 10/23/25 11:46 Q4HR PRN Hypertension Losartan Potassium 50 mg 09/30/25 09:00 Losartan Potassium 25 Mg Tablet PO 10/30/25 08:59 QDAY BRITNEY Ondansetron HCl 4 mg 09/23/25 09:13 Ondansetron Inj 2 Mg/Ml Inj 2 Ml IVP 10/23/25 09:12 Q4HR PRN NAUSEA OR VOMITING Pantoprazole Sodium 40 mg 09/24/25 09:00 09/29/25 08:23 Pantoprazole 40 Mg Tablet PO 10/24/25 08:59 40 mg QDAY BRITNEY Administration Sennosides 1 tab 09/23/25 11:41 Senna Tablet PO 10/23/25 11:40 QDAY PRN constipation Protocol Plan Acute CVA - LT Julio - MRI brain : acute infarction in the left Julio - Pt has dense hemiplegia Recommendations: - Continue with DAPT - Continue statin and BP control, patient is at high risk for repeat stroke - Will need acute rehab at least for few weeks on DC - Close outpatient Neurology follow up recommended Primary Hypertension BP trending 100-110 systolic Recommendations - Well controlled now on oral antihypertensives, tolerating. May decrease dose slightly to optimize - Keep within goal <120/80 for mortality benefit Thank you for the consult. Neurology will continue to follow the case with you Plan of care discussed with attending Neurologist Dr Martinez, - Peter Palomares M.D. PGY3 Disclaimer: Minor errors in user interface engineer may be present as this note was dictated using voice recognition software. Attending Provider Attestation/Addendum I personally have seen and examined the patient at the bedside and agree with resident's findings, assessment and plan of care. Will continue with physical therapy and speech therapy inpatient continue with dual antiplatelet therapy along with stati. Waiting for her insurance approval for acute rehab placement,
[2025-09-29] MEDS: POLYETHYLENE GLYCOL 17 GM PACKET PO (17:05)
[2025-09-29] MEDS: ATORVASTATIN CALCIUM 20 MG TABLET 80 MG PO (21:28)
[2025-09-30] VITALS (7 sets, daily range): BP systolic 120–132; BP diastolic 66–77; PULSE 79–87; RESP 16–18; TEMP 36.1–36.8; O2SAT 93–95; BMI 25.9; BMI 12.0
[2025-09-30] MEDS: HEPARIN SOD INJ 5000 UNIT/ML VIAL SC ×3 (05:28→21:04)
[2025-09-30 06:24] LABS: Basophils # (Auto) 0.1 Thou/mm3 (0.0-0.2); Basophils % (Auto) 1 % (0-2.5); Eosinophils # (Auto) 0.2 Thou/mm3 (0.0-0.5); Eosinophils % (Auto) 3 % (0-10); Hematocrit 38.5 % (36.0-46.0); Hemoglobin 12.3 g/dL (12.0-16.0); Immature Granulocytes Auto 0.03 Thou/mm3 (0.00-0.00); Lymphocytes # (Auto) 2.0 Thou/mm3 (1.0-4.8); Lymphocytes % (Auto) 26 % (10-50); Mean Corpuscular HGB Conc 31.9 g/dl (31.0-37.0); Mean Corpuscular Hemoglobin 25.3 pg (25.0-35.0); Mean Corpuscular Volume 79 fL (80-100); Monocytes # (Auto) 0.6 Thou/mm3 (0.0-0.8); Monocytes % (Auto) 8 % (0-12); Neutrophils # (Auto) 4.9 Thou/mm3 (1.8-7.7); Neutrophils % (Auto) 62 % (37-80); Nucleated Red Blood Cell # 0.00 Thou/mm3 (0.00-0.00); Nucleated Red Blood Cell % 0 /100 WBC (0); Platelet Count 319 Thou/mm3 (140-440); RDW Standard Deviation 38.0 fL (36.4-46.3); Red Blood Count 4.87 Miln/mm3 (4.00-5.20); White Blood Count 7.8 Thou/mm3 (3.6-11.0)
[2025-09-30 06:52] LABS: Alanine Aminotransferase 21 U/L (10-49); Albumin, Serum 4.1 gm/dL (3.4-4.8); Albumin/Globulin Ratio 1.1 (1.2-2.2); Alkaline Phosphatase 69 U/L (46-116); Anion Gap 11 (7-16); Aspartate Amino Transferase 29 U/L (0-34); BUN/Creatinine Ratio 30 Ratio (12-20); Bilirubin,Total 0.3 mg/dL (0.3-1.2); Blood Urea Nitrogen 39 mg/dL (9-23); Calcium 9.8 mg/dL (8.3-10.6); Calcium (Corrected) 9.8 mg/dL (8.5-10.1); Carbon Dioxide 23.4 mMol/L (20.0-31.0); Chloride 103 mMol/L (98-107); Creatinine (Component) 1.3 mg/dL (0.6-1.3); Estimated Creatinine Clearance 33.1 mL/min (>60); Globulin 3.6 gm/dL (2.3-3.5); Glucose 151 mg/dL (74-106); Osmolality,Calculated 286 (275-295); Potassium 4.1 mMol/L (3.4-5.1); Sodium 137 mMol/L (136-145); Total Protein 7.7 gm/dL (5.7-8.2); eGFR 44 See Note
[2025-09-30] MEDS: INSULIN LISPRO (AdmeLOG) 1 UNIT/0.01 ML UNIT SC (07:28)
[2025-09-30] MEDS: ASPIRIN 81 MG CHEW PO (08:19)
[2025-09-30] MEDS: POLYETHYLENE GLYCOL 17 GM PACKET PO (08:19)
[2025-09-30] MEDS: PANTOPRAZOLE 40 MG TABLET PO (08:19)
[2025-09-30] MEDS: ESCITALOPRAM OXALATE 10 MG TABLET PO (08:19)
[2025-09-30] MEDS: CLOPIDOGREL BISULFATE 75 MG TABLET PO (08:19)
[2025-09-30] MEDS: SODIUM CHLORIDE 0.9% 1000 ML 1,000 ML 75 ML IV ×2 (08:20→21:50)
--- NOTE | 2025-09-30 09:50 | PC.SS ---
RADIOGRAPHER MAMMOGRAPHER contacted [facility] to obtain update on peer to peer discussion.? RADIOGRAPHER MAMMOGRAPHER informed that [facility] staff, Ximena; out today.? RADIOGRAPHER MAMMOGRAPHER spoke to [facility] staff, Venessa; who informed RADIOGRAPHER MAMMOGRAPHER that pillowcase cutter will re-submit request to physician for peer to peer discussion.? RADIOGRAPHER MAMMOGRAPHER provided contact number for Dr. Muhammad to be reached for peer to peer.? RADIOGRAPHER MAMMOGRAPHER updated resident.
--- NOTE | 2025-09-30 10:29 | ESPR_ITS ---
<Statement entered by Bre Encinas MD - 10/13/25 07:54> I reviewed above note and agree with findings and plans. I have also personally examined the patient with medicine team and went over assessment and plan with medical team including internet systems administrator and resident physician. <Statement entered by Susanne Muhammad MD - 10/01/25 07:40> Patient was seen and examined by me personally. I have directly supervised and reviewed documentation by the team resident and agree with its findings with any exceptions or additional findings as below. Plan of care was discussed with the attending, Dr. Encinas. Morning labs showed patient had PETR with creatinine 1.3, suspected prerenal dehydration due to lower intake, patient started on IV fluids. Will recheck labs again tomorrow morning. Patient additionally having some urinary retention, will do bladder scans and start tamsulosin, reviewed current meds and none seem to be causing retention. Still pending [id number] with patient's insurance company. career services coordinator reached out however insurance still have not called back. Zach and I called the number for [employer] however the staff reported that the physician has not made rounds on the pending cases. I was told to call back on the weekend. Will follow up. Susanne Muhammad, PGY-3 Documentation for date of: 09/30/25 Subjective Subjective Interval history: No overnight events. Patient was examined at bedside; they appear A&Ox3 and in NAD. Vitals/labs today significant for creatinine 0.7->1.3. Physical exam remains unchanged from days prior. Patient is currently pending insurance authorization for acute rehab placement. However, she has developed a new PETR today that is likely 2/2 prerenal intravascular depletion from dehydration. She will be started on IV NS maintenance fluids @ 75 cc/hr (2 bags) and encouraged to increase PO water intake. Her losartan has also been held for now. Exam Vital Signs Temp Pulse Resp BP Pulse Ox O2 Del Method FiO2 98.2 F 82 16 128/68 94 L Room Air 97 09/30/25 08:00 09/30/25 08:00 09/30/25 08:00 09/30/25 08:00 09/30/25 08:00 09/30/25 08:00 09/23/25 09:18 Narrative Exam General: Awake. HEENT: Normocephalic, atraumatic, mucous membranes moist. Heart: Regular rate and rhythm, no murmurs. Lungs: Clear to auscultation with no wheezing or crackles. Abdomen: Soft, nondistended, nontender, positive bowel sounds. ?No guarding or rebound tenderness. Neurologic: Right-sided extraocular movements impaired with left-side intact. Alert and oriented x3, 0/5 power on Right side Extremities: No edema. Skin: No rash or ecchymoses. Objective Labs 09/30/25 05:55 09/30/25 05:55 Labs: Laboratory Results - last 24 hr 09/30/25 05:55 WBC 7.8 RBC 4.87 Hgb 12.3 Hct 38.5 MCV 79 L MCH 25.3 MCHC 31.9 RDW Std Deviation 38.0 Plt Count 319 D Neut % (Auto) 62 Lymph % (Auto) 26 [place] % (Auto) 8 Eos % (Auto) 3 Baso % (Auto) 1 Neut # (Auto) 4.9 Lymph # (Auto) 2.0 [place] # (Auto) 0.6 Eos # (Auto) 0.2 Baso # (Auto) 0.1 Immature Gran # (Auto) 0.03 H Absolute Nucleated RBC 0.00 Immature Gran % 0 Nucleated RBC % 0 Sodium 137 Potassium 4.1 Chloride 103 Carbon Dioxide 23.4 Anion Gap 11 BUN 39 H Creatinine 1.3 D Estim Creat Clear Calc 33.1 L eGFR 44 L BUN/Creatinine Ratio 30 H Glucose 151 H Calculated Osmolality 286 Calcium 9.8 Corrected Calcium 9.8 Total Bilirubin 0.3 AST 29 ALT 21 Alkaline Phosphatase 69 Total Protein 7.7 Albumin 4.1 Globulin 3.6 H Albumin/Globulin Ratio 1.1 L ABG Interpretation ABG results: 09/23/25 10:36 ABG pH 7.40 ABG pCO2 38 ABG pO2 67 L ABG HCO3 23 ABG O2 Saturation 93 ABG Base Excess -1 Quality Measures Quality Measures stroke Suspected type of Stroke: Non Acute Last known well (date): 09/22/25 Last known well (time): 22:00 Tenecteplase given: Reason(s) Tenecteplase not given: Outside the time window not given Rehab services: PT evaluation ordered and Speech Language Pathology eval ordered VTE Prophylaxis: pharmaceutical Antithrombotic by day 2:: not indicated (describe) Statin ordered: <75 y/o high intensity dose Anticoagulation ordered for A-fib or flutter (current or hx): not indicated Advance care planning discussed with:: patient and child Assessment & Plan Assessment Current Active Medications: Generic Name Dose Route Start Last Admin Trade Name Freq PRN Reason Stop Dose Admin Acetaminophen 650 mg 09/23/25 11:41 09/29/25 13:59 Acetaminophen 325 Mg Tablet PO 10/23/25 11:40 650 mg Q6H PRN Administration Fever >100.3 or Mild Pain 1-3 Acetaminophen 650 mg 09/23/25 11:41 Acetaminophen Supp 650 Mg Supp ID 10/23/25 11:40 Q6H PRN PAIN SCALE 1-3 (mild Protocol Hydrocodone Bitart/Acetaminophen 1 tab 09/29/25 16:37 Hydrocodone/Apap 5/325 Tablet PO 10/04/25 16:36 Q8HR PRN Severe Pain 7-10 Aspirin 81 mg 09/29/25 09:00 09/30/25 08:19 Aspirin 81 Mg Chew PO 10/24/25 08:59 81 mg QDAY BRITNEY Administration Atorvastatin Calcium 80 mg 09/23/25 21:00 09/29/25 21:28 Atorvastatin Calcium 20 Mg Tablet PO 10/23/25 20:59 80 mg HS BRITNEY Administration Clopidogrel Bisulfate 75 mg 09/24/25 09:00 09/30/25 08:19 Clopidogrel Bisulfate 75 Mg Tablet PO 10/24/25 08:59 75 mg QDAY BRITNEY Administration Dextrose 25 ml 09/23/25 15:33 Dextrose 50%-Water Inj 50 Ml Syringe IV 10/23/25 15:32 Q15MIN PRN BG 50-70 responsive npo pt Dextrose 50 ml 09/23/25 15:33 Dextrose 50%-Water Inj 50 Ml Syringe IV 10/23/25 15:32 Q15MIN PRN BG <50 OR BG <70 & pt unresponsive Escitalopram Oxalate 10 mg 09/25/25 15:15 09/30/25 08:19 Escitalopram Oxalate 10 Mg Tablet PO 10/25/25 15:14 10 mg QDAY BRITNEY Administration Glucagon 1 mg 09/23/25 15:33 Glucagon Inj 1 Mg Vial IM Q15MIN PRN BG <70, and no IV access Heparin Sodium (Porcine) 5,000 unit 09/23/25 14:00 09/30/25 05:28 Heparin Sod Inj 5000 Unit/Ml Vial SC 10/07/25 13:59 5,000 unit Q8HR BRITNEY Administration Sodium Chloride 1,000 mls @ 75 mls/hr 09/30/25 08:00 09/30/25 08:20 Ns IV 10/01/25 10:39 75 mls/hr .[id number] BRITNEY Administration Insulin Human Lispro 0 unit 09/23/25 17:00 09/30/25 07:28 Insulin Lispro (Admelog) 1 Unit/0.01 Ml Unit SC 10/23/25 16:59 3 unit ACHS BRITNEY Administration Protocol Labetalol HCl 10 mg 09/23/25 11:47 Labetalol Inj 5 Mg/Ml Vial 20 Ml IVP 10/23/25 11:46 Q4HR PRN Hypertension Losartan Potassium 50 mg 09/30/25 09:00 Losartan Potassium 25 Mg Tablet PO 10/30/25 08:59 On Hold: 09/30/25 09:00 QDAY BRITNEY Ondansetron HCl 4 mg 09/23/25 09:13 Ondansetron Inj 2 Mg/Ml Inj 2 Ml IVP 10/23/25 09:12 Q4HR PRN NAUSEA OR VOMITING Pantoprazole Sodium 40 mg 09/24/25 09:00 09/30/25 08:19 Pantoprazole 40 Mg Tablet PO 10/24/25 08:59 40 mg QDAY BRITNEY Administration Polyethylene Glycol 17 gm 09/29/25 16:45 09/30/25 08:19 Polyethylene Glycol 17 Gm Packet PO 10/29/25 16:44 17 gm QDAY BRITNEY Administration Sennosides 1 tab 09/23/25 11:41 Senna Tablet PO 10/23/25 11:40 QDAY PRN constipation Protocol Plan Patient is a [id number]-[id number] 70-year-old female with a PMH of insulin- independent T2DM noncompliant on metformin, hypertension noncompliant on lisinopril, hyperlipidemia noncompliant on simvastatin, and chronic dizziness on dimenhydrinate who presented on 09/23 with a chief complaint of generalized weakness and altered mental status. Patient was admitted for the work-up and management of stroke-like symptoms (no TNK administered), hypertensive emergency, anion gap metabolic acidosis with lactic acidosis, and UTI. In-house Neurology (Dr. Martinez) was consulted and is closely following the case. #s/p CVA, acute infarct of the left brainstem at the pontine level #Right-sided hemiplegia Per documentation by Teleneurology, patient initially presented with slurred speech and left facial droop (NIHSS 3) but this has seemed to resolve by time of this process description writer's interview (NIHSS 0) Per daughter, patient also seemed to have new right-sided weakness that is not present at baseline 09/23 CT head and CTA head/neck both negative for signs of hemorrhage or LVO TNK not administered as LKWT was 8 PM and patient was outside eligible time window Given PO Plavix loading dose of 300 mg x 1 in the ED UA suggestive of possible UTI although patient denies any urinary symptoms Dx: -Ordered HgbA1c, showed 10.0 -Ordered lipid panel, showed cholesterol 254, LDL 173 -Ordered TSH and free T4, showed 0.87 and 1.40 (both WNL) -09/23 echocardiogram was negative for PFO or ASD -09/23 stroke protocol brain MRI showed 15 mm acute infarct of the left brainstem at the pontine level as well as significant cerebral arterial sclerotic disease Rx: -PO aspirin 81 mg daily and PO Plavix 75 mg daily -PO atorvastatin 80 mg daily -Ordered PT, recommended physical therapy -Speech therapy following the patient - noted to have improvement in Dysarthria -Neurology (Dr. Martinez) consulted, appreciate recommendations #PETR, likely prerenal #2/2 to intravascular depletion from dehydration Patient with acute kidney injury (PETR), defined by a rise in serum creatinine >=.3 mg/dL within 48 hours or >=.5? baseline within 7 days, and/or urine output <0.5 mL/kg/hr for >6 hours. 09/30 creatinine: [1.3], baseline: [0.7]. Etiology likely pre-renal: volume depletion Rx: -IV NS maintenance fluids @ 75 cc/hr (2 bags) -Encourage increased PO water intake -Holding losartan 50 mg PO BID #Hypertensive emergency #Primary hypertension, uncontrolled i/s/o medication non-compliance 09/23 admission BP 199/76 with signs of end-organ damage including altered mental status and lactic acidosis Patient apparently has home medication of lisinopril but has not taken it since about a year ago Rx: -Amlodipine 10 mg PO qD -Labetalol 10 mg IV prn for SBP>180 or DBP>120 #Mar-dmivvik-bgjqjuelw diabetes mellitus type 2, uncontrolled i/s/o medication non-compliance [10%] 09/23 admission blood glucose of 300, BHB 0.3 (WNL) Patient reportedly has T2DM but has not taken her home metformin since about a year ago Dx: -HgbA1c this admission 10.0 Rx: -ISS #Anion gap metabolic acidosis, resolved #Lactic acidosis, improved 09/23 admission lactic acid 6.8 (later down-trended to 5.3) with anion gap of 17 09/24 lactic acid and anion gap down-trended to within normal limits #UTI 09/23 admission UA suggestive of UTI (3+ bacteria, positive LE) but patient denies urinary symptoms Dx: -09/23 reflex UCx grew E. coli Rx: -Discontinued Bactrim 160 mg PO BID (already received over 5 days of antibiotic therapy) #Hyperlipidemia Self-reported history with home medication of simvastatin Dx: -Lipid panel as above Rx: -PO atorvastatin 80 mg qHS #Elevated ESR - 91 09/23 admission ESR 91 Dx: -09/24 repeat ESR ordered, showed ESR 59 #Major depressive disorder Daughter reports that patient became non-compliant with her medications after the of her about a year ago Dx: -PHQ-9 Assessment Score: 17 Rx: -Lexapro 10 mg PO qD Hospital Management: Disposition: Admitted to [facility] for stroke protocol, hypertensive emergency, pending insurance authorization for SNF placement Diet: Carbohydrate Consistent GI Prophylaxis: PO Protonix 40 mg daily Bowel Prophylaxis: PO Senna 1 tab daily as needed DVT Prophylaxis: Subcutaneous heparin 5000 units every 8 hours CODE STATUS: Full Code Patient plan of care was discussed with the attending physician Dr. Encinas and senior resident Dr. Jb Stallings, DO PGY-1
--- NOTE | 2025-09-30 11:45 | PC.NURSE ---
Awaiting facility placement and transportation set up for discharge.
--- NOTE | 2025-09-30 11:56 | PC.NURSE ---
discharge order written, awaiting for placement at this time.
--- NOTE | 2025-09-30 15:30 | PC.SS ---
EMPLOYMENT AGENCY MANAGER contacted [facility] [employer] to obtain update on peer to peer discussion.?? EMPLOYMENT AGENCY MANAGER spoke to [facility] staff, Venessa; who informed EMPLOYMENT AGENCY MANAGER that rounding has not been completed.? EMPLOYMENT AGENCY MANAGER informed [facility] staff that basis for discussion in regards to denial.? EMPLOYMENT AGENCY MANAGER informed that peer to peer discussion not likely to happen today per [facility] staff, Venessa.? [facility] staff provided EMPLOYMENT AGENCY MANAGER with number to call over the weekend to follow up with request.? EMPLOYMENT AGENCY MANAGER updated resident and provided number .
[2025-09-30] MEDS: TAMSULOSIN HCL 0.4 MG CAPSULE PO (18:10)
[2025-09-30] MEDS: ATORVASTATIN CALCIUM 20 MG TABLET 80 MG PO (21:04)
--- NOTE | 2025-09-30 21:13 | PC.NURSE ---
DR BLANK NOTIFIED OF PT'S NO URINE OUTPUT, BLADDER SCAN 322 ML VOLUME, MD ORDERED TO DO IN AND OUT PRN.
[2025-10-01] VITALS (9 sets, daily range): BP systolic 119–162; BP diastolic 63–94; PULSE 81–95; RESP 16–20; TEMP 35.8–36.8; O2SAT 94–97
[2025-10-01] MEDS: HEPARIN SOD INJ 5000 UNIT/ML VIAL SC ×3 (06:05→21:01)
[2025-10-01 07:04] LABS: Basophils # (Auto) 0.1 Thou/mm3 (0.0-0.2); Basophils % (Auto) 1 % (0-2.5); Eosinophils # (Auto) 0.2 Thou/mm3 (0.0-0.5); Eosinophils % (Auto) 3 % (0-10); Hematocrit 35.7 % (36.0-46.0); Hemoglobin 11.6 g/dL (12.0-16.0); Immature Granulocytes Auto 0.03 Thou/mm3 (0.00-0.00); Lymphocytes # (Auto) 2.1 Thou/mm3 (1.0-4.8); Lymphocytes % (Auto) 28 % (10-50); Mean Corpuscular HGB Conc 32.5 g/dl (31.0-37.0); Mean Corpuscular Hemoglobin 25.6 pg (25.0-35.0); Mean Corpuscular Volume 79 fL (80-100); Monocytes # (Auto) 0.6 Thou/mm3 (0.0-0.8); Monocytes % (Auto) 8 % (0-12); Neutrophils # (Auto) 4.3 Thou/mm3 (1.8-7.7); Neutrophils % (Auto) 59 % (37-80); Nucleated Red Blood Cell # 0.00 Thou/mm3 (0.00-0.00); Nucleated Red Blood Cell % 0 /100 WBC (0); Platelet Count 320 Thou/mm3 (140-440); RDW Standard Deviation 37.6 fL (36.4-46.3); Red Blood Count 4.54 Miln/mm3 (4.00-5.20); White Blood Count 7.3 Thou/mm3 (3.6-11.0)
[2025-10-01 07:11] LABS: Alanine Aminotransferase 22 U/L (10-49); Albumin, Serum 3.9 gm/dL (3.4-4.8); Albumin/Globulin Ratio 1.3 (1.2-2.2); Alkaline Phosphatase 61 U/L (46-116); Anion Gap 10 (7-16); Aspartate Amino Transferase 38 U/L (0-34); BUN/Creatinine Ratio 39 Ratio (12-20); Bilirubin,Total 0.4 mg/dL (0.3-1.2); Blood Urea Nitrogen 31 mg/dL (9-23); Calcium 9.2 mg/dL (8.3-10.6); Calcium (Corrected) 9.3 mg/dL (8.5-10.1); Carbon Dioxide 22.1 mMol/L (20.0-31.0); Chloride 107 mMol/L (98-107); Creatinine (Component) 0.8 mg/dL (0.6-1.3); Globulin 2.9 gm/dL (2.3-3.5); Glucose 139 mg/dL (74-106); Osmolality,Calculated 286 (275-295); Potassium 4.4 mMol/L (3.4-5.1); Sodium 139 mMol/L (136-145); Total Protein 6.8 gm/dL (5.7-8.2); eGFR > 60 See Note
[2025-10-01 07:18] LABS: Estimated Creatinine Clearance 54.3 mL/min (>60)
[2025-10-01] MEDS: CLOPIDOGREL BISULFATE 75 MG TABLET PO (08:09)
[2025-10-01] MEDS: ASPIRIN 81 MG CHEW PO (08:09)
[2025-10-01] MEDS: POLYETHYLENE GLYCOL 17 GM PACKET PO (08:09)
[2025-10-01] MEDS: TAMSULOSIN HCL 0.4 MG CAPSULE PO (08:09)
[2025-10-01] MEDS: ESCITALOPRAM OXALATE 10 MG TABLET PO (08:09)
[2025-10-01] MEDS: PANTOPRAZOLE 40 MG TABLET PO (08:09)
--- NOTE | 2025-10-01 10:46 | PC.NURSE ---
Bladder scan showed a current amount of 830mls. Bladder is distended. Dr. Rogers aware. No orders received.
[2025-10-01] MEDS: INSULIN LISPRO (AdmeLOG) 1 UNIT/0.01 ML UNIT SC (11:51)
--- NOTE | 2025-10-01 14:56 | ESPR_ITS ---
<Statement entered by Bre Encinas MD - 10/13/25 07:58> I reviewed above note and agree with findings and plans. I have also personally examined the patient with medicine team and went over assessment and plan with medical team including sports internship and resident physician. Documentation for date of: 10/01/25 Subjective Subjective Interval history: Patient is seen and examined at bedside. No acute overnight events. Still noted to have weakness on the right side. Still pending placement due to insurance issues and trying to get hold of them Exam Vital Signs Temp Pulse Resp BP Pulse Ox O2 Del Method FiO2 96.4 F L 94 16 132/73 H 97 Room Air 97 10/01/25 11:53 10/01/25 12:00 10/01/25 11:53 10/01/25 11:53 10/01/25 11:53 10/01/25 11:53 09/23/25 09:18 Narrative Exam General: Awake. HEENT: Normocephalic, atraumatic, mucous membranes moist. Heart: Regular rate and rhythm, no murmurs. Lungs: Clear to auscultation with no wheezing or crackles. Abdomen: Soft, nondistended, nontender, positive bowel sounds. ?No guarding or rebound tenderness. Neurologic: Alert and oriented x3, 0/5 power on Right side Extremities: No edema. Skin: No rash or ecchymoses. Objective Labs 10/01/25 05:53 10/01/25 05:53 Labs: Laboratory Results - last 24 hr 10/01/25 05:53 WBC 7.3 RBC 4.54 Hgb 11.6 L Hct 35.7 L MCV 79 L MCH 25.6 MCHC 32.5 RDW Std Deviation 37.6 Plt Count 320 Neut % (Auto) 59 Lymph % (Auto) 28 [place] % (Auto) 8 Eos % (Auto) 3 Baso % (Auto) 1 Neut # (Auto) 4.3 Lymph # (Auto) 2.1 [place] # (Auto) 0.6 Eos # (Auto) 0.2 Baso # (Auto) 0.1 Immature Gran # (Auto) 0.03 H Absolute Nucleated RBC 0.00 Immature Gran % 0 Nucleated RBC % 0 Sodium 139 Potassium 4.4 Chloride 107 Carbon Dioxide 22.1 Anion Gap 10 BUN 31 H Creatinine 0.8 D Estim Creat Clear Calc 54.3 L eGFR > 60 BUN/Creatinine Ratio 39 H Glucose 139 H Calculated Osmolality 286 Calcium 9.2 Corrected Calcium 9.3 Total Bilirubin 0.4 AST 38 H ALT 22 Alkaline Phosphatase 61 Total Protein 6.8 Albumin 3.9 Globulin 2.9 Albumin/Globulin Ratio 1.3 ABG Interpretation ABG results: 09/23/25 10:36 ABG pH 7.40 ABG pCO2 38 ABG pO2 67 L ABG HCO3 23 ABG O2 Saturation 93 ABG Base Excess -1 Quality Measures Quality Measures stroke Suspected type of Stroke: Non Acute Last known well (date): 09/22/25 Last known well (time): 22:00 Tenecteplase given: Reason(s) Tenecteplase not given: Outside the time window not given Rehab services: PT evaluation ordered VTE Prophylaxis: pharmaceutical Antithrombotic by day 2:: ordered Statin ordered: >75 y/o moderate or high intensity dose Anticoagulation ordered for A-fib or flutter (current or hx): not indicated Advance care planning discussed with:: patient Assessment & Plan Assessment Current Active Medications: Generic Name Dose Route Start Last Admin Trade Name Freq PRN Reason Stop Dose Admin Acetaminophen 650 mg 09/23/25 11:41 09/29/25 13:59 Acetaminophen 325 Mg Tablet PO 10/23/25 11:40 650 mg Q6H PRN Administration Fever >100.3 or Mild Pain 1-3 Acetaminophen 650 mg 09/23/25 11:41 Acetaminophen Supp 650 Mg Supp OK 10/23/25 11:40 Q6H PRN PAIN SCALE 1-3 (mild Protocol Hydrocodone Bitart/Acetaminophen 1 tab 09/29/25 16:37 Hydrocodone/Apap 5/325 Tablet PO 10/04/25 16:36 Q8HR PRN Severe Pain 7-10 Aspirin 81 mg 09/29/25 09:00 10/01/25 08:09 Aspirin 81 Mg Chew PO 10/24/25 08:59 81 mg QDAY BRITNEY Administration Atorvastatin Calcium 80 mg 09/23/25 21:00 09/30/25 21:04 Atorvastatin Calcium 20 Mg Tablet PO 10/23/25 20:59 80 mg HS BRITNEY Administration Clopidogrel Bisulfate 75 mg 09/24/25 09:00 10/01/25 08:09 Clopidogrel Bisulfate 75 Mg Tablet PO 10/24/25 08:59 75 mg QDAY BRITNEY Administration Dextrose 25 ml 09/23/25 15:33 Dextrose 50%-Water Inj 50 Ml Syringe IV 10/23/25 15:32 Q15MIN PRN BG 50-70 responsive npo pt Dextrose 50 ml 09/23/25 15:33 Dextrose 50%-Water Inj 50 Ml Syringe IV 10/23/25 15:32 Q15MIN PRN BG <50 OR BG <70 & pt unresponsive Escitalopram Oxalate 10 mg 09/25/25 15:15 10/01/25 08:09 Escitalopram Oxalate 10 Mg Tablet PO 10/25/25 15:14 10 mg QDAY BRITNEY Administration Glucagon 1 mg 09/23/25 15:33 Glucagon Inj 1 Mg Vial IM Q15MIN PRN BG <70, and no IV access Heparin Sodium (Porcine) 5,000 unit 09/23/25 14:00 10/01/25 14:50 Heparin Sod Inj 5000 Unit/Ml Vial SC 10/07/25 13:59 5,000 unit Q8HR BRITNEY Administration Insulin Human Lispro 0 unit 09/23/25 17:00 10/01/25 11:51 Insulin Lispro (Admelog) 1 Unit/0.01 Ml Unit SC 10/23/25 16:59 3 unit ACHS BRITNEY Administration Protocol Labetalol HCl 10 mg 09/23/25 11:47 Labetalol Inj 5 Mg/Ml Vial 20 Ml IVP 10/23/25 11:46 Q4HR PRN Hypertension Losartan Potassium 50 mg 09/30/25 09:00 Losartan Potassium 25 Mg Tablet PO 10/30/25 08:59 On Hold: 09/30/25 09:00 QDAY BRITNEY Ondansetron HCl 4 mg 09/23/25 09:13 Ondansetron Inj 2 Mg/Ml Inj 2 Ml IVP 10/23/25 09:12 Q4HR PRN NAUSEA OR VOMITING Pantoprazole Sodium 40 mg 09/24/25 09:00 10/01/25 08:09 Pantoprazole 40 Mg Tablet PO 10/24/25 08:59 40 mg QDAY BRITNEY Administration Polyethylene Glycol 17 gm 09/29/25 16:45 10/01/25 08:09 Polyethylene Glycol 17 Gm Packet PO 10/29/25 16:44 17 gm QDAY BRITNEY Administration Sennosides 1 tab 09/23/25 11:41 Senna Tablet PO 10/23/25 11:40 QDAY PRN constipation Protocol Tamsulosin HCl 0.4 mg 09/30/25 17:15 10/01/25 08:09 Tamsulosin Hcl 0.4 Mg Capsule PO 10/30/25 17:14 0.4 mg QDAY BRITNEY Administration Plan Patient is a jhe-Qozmhuw-[id number] 70-year-old female with a PMH of insulin- independent T2DM noncompliant on metformin, hypertension noncompliant on lisinopril, hyperlipidemia noncompliant on simvastatin, and chronic dizziness on dimenhydrinate who presented on 09/23 with a chief complaint of generalized weakness and altered mental status. Patient was admitted for the work-up and management of stroke-like symptoms (no TNK administered), hypertensive emergency, anion gap metabolic acidosis with lactic acidosis, and UTI. In-house Neurology (Dr. Martinez) was consulted and is closely following the case. #s/p CVA, acute infarct of the left brainstem at the pontine level #Right-sided hemiplegia Per documentation by Teleneurology, patient initially presented with slurred speech and left facial droop (NIHSS 3) but this has seemed to resolve by time of this production underwriter's interview (NIHSS 0) Per daughter, patient also seemed to have new right-sided weakness that is not present at baseline 09/23 CT head and CTA head/neck both negative for signs of hemorrhage or LVO TNK not administered as LKWT was 8 PM and patient was outside eligible time window Given PO Plavix loading dose of 300 mg x 1 in the ED UA suggestive of possible UTI although patient denies any urinary symptoms Dx: -Ordered HgbA1c, showed 10.0 -Ordered lipid panel, showed cholesterol 254, LDL 173 -Ordered TSH and free T4, showed 0.87 and 1.40 (both WNL) -09/23 echocardiogram was negative for PFO or ASD -09/23 stroke protocol brain MRI showed 15 mm acute infarct of the left brainstem at the pontine level as well as significant cerebral arterial sclerotic disease Rx: -PO aspirin 81 mg daily and PO Plavix 75 mg daily -PO atorvastatin 80 mg daily -Ordered PT, recommended physical therapy -Speech therapy following the patient - noted to have improvement in Dysarthria -Neurology (Dr. Martinez) is following the patient #Hypertensive emergency #Primary hypertension, uncontrolled i/s/o medication non-compliance 09/23 admission BP 199/76 with signs of end-organ damage including altered mental status and lactic acidosis Patient apparently has home medication of lisinopril but has not taken it since about a year ago Initially patient needed Losartan 50mg BID and Amlodipine 10mg once daily Rx: Stopped all the Antihypertensives as blood pressure is within normal limits without the medications #Ovr-sdedyof-hldwljvnp diabetes mellitus type 2, uncontrolled i/s/o medication non-compliance [10%] 09/23 admission blood glucose of 300, BHB 0.3 (WNL) Patient reportedly has T2DM but has not taken her home metformin since about a year ago Dx: -HgbA1c this admission 10.0 Rx: -ISS #Hyperlipidemia Self-reported history with home medication of simvastatin Dx: -Lipid panel as above Rx: -PO atorvastatin 80 mg qHS #Major depressive disorder Daughter reports that patient became non-compliant with her medications after the of her about a year ago Dx: -PHQ-9 Assessment Score: 17 Rx: -Lexapro 10 mg PO qD Hospital Management: Disposition: Admitted to [facility] for stroke protocol, hypertensive emergency, pending insurance authorization for SNF placement Diet: Carbohydrate Consistent GI Prophylaxis: PO Protonix 40 mg daily Bowel Prophylaxis: PO Senna 1 tab daily as needed DVT Prophylaxis: Subcutaneous heparin 5000 units every 8 hours CODE STATUS: Full Code Patient plan of care was discussed with the attending physician, Dr. Ce Parikh, PGY2
[2025-10-01] MEDS: ATORVASTATIN CALCIUM 20 MG TABLET 80 MG PO (21:02)
[2025-10-02] VITALS: BP 157/91; PULSE 84; PULSE 96; RESP 16; TEMP 36.6; O2SAT 95
[2025-10-02 04:00] VITALS: BP 134/79; PULSE 84; PULSE 89; RESP 18; TEMP 36.6; O2SAT 94
[2025-10-02] MEDS: HEPARIN SOD INJ 5000 UNIT/ML VIAL SC ×3 (05:06→21:00)
[2025-10-02 08:00] VITALS: BP 125/71; PULSE 82; PULSE 90; RESP 18; TEMP 36.4; O2SAT 94
[2025-10-02] MEDS: POLYETHYLENE GLYCOL 17 GM PACKET PO (09:14)
[2025-10-02] MEDS: ASPIRIN 81 MG CHEW PO (09:14)
[2025-10-02] MEDS: CLOPIDOGREL BISULFATE 75 MG TABLET PO (09:14)
[2025-10-02] MEDS: PANTOPRAZOLE 40 MG TABLET PO (09:14)
[2025-10-02] MEDS: ESCITALOPRAM OXALATE 10 MG TABLET PO (09:14)
[2025-10-02] MEDS: TAMSULOSIN HCL 0.4 MG CAPSULE PO (09:14)
--- NOTE | 2025-10-02 10:23 | PC.SS ---
Addendum entered by Denise Gamez 10/03/25 09:01: SS reached out to [facility] [phone] SS spoke to [facility]. SS wanted to confirm retrieval of recent PT notes, Venessa stated they are waiting for their Doctors to round at about 11am, per Venessa they will call us back with an update after. SS provided call back information Original Note: Patient is pending a [id number] review. SW contacted [phone], was able to get a hold of Dr. Mcdonough; the call was transferred to Dr. Parikh. Dr. Parikh transferred the call back to this . After speaking with Dr. Mcdonough, insurance is willing to only approve for nursing home or HHPT. SW advocated for the patient on the need for physical therapy at an SNF due to a significant declined in her prior level of functioning due to the CVA. Dr. Garza requested updated PT notes to be fax to [phone], attention to Pat; sent updated PT notes through [employer]. requested Dr. Encinas to follow up with Dr. Garza.
--- NOTE | 2025-10-02 10:47 | ESPR_ITS ---
<Statement entered by Bre Encinas MD - 10/13/25 08:05> I reviewed above note and agree with findings and plans. I have also personally examined the patient with medicine team and went over assessment and plan with medical team including software development intern and resident physician. Documentation for date of: 10/02/25 Subjective Subjective Interval history: No overnight events. Patient was examined at bedside; they appear A&Ox3 and in NAD. Vitals/labs today significant for Hgb 11.6, creatinine 1.3->0.8. Physical exam was benign and unremarkable. Patient is medically cleared and pending discharge after insurance authorization for acute rehab. Exam Vital Signs Temp Pulse Resp BP Pulse Ox O2 Del Method FiO2 97.5 F 90 18 125/71 94 L Room Air 97 10/02/25 08:00 10/02/25 08:00 10/02/25 08:00 10/02/25 08:00 10/02/25 08:00 10/02/25 08:00 09/23/25 09:18 Narrative Exam General: Awake. HEENT: Normocephalic, atraumatic, mucous membranes moist. Heart: Regular rate and rhythm, no murmurs. Lungs: Clear to auscultation with no wheezing or crackles. Abdomen: Soft, nondistended, nontender, positive bowel sounds. ?No guarding or rebound tenderness. Neurologic: Right-sided extraocular movements impaired with left-side intact. Alert and oriented x3, 0/5 power on Right side Extremities: No edema. Skin: No rash or ecchymoses. Objective Labs 10/01/25 05:53 10/01/25 05:53 ABG Interpretation ABG results: 09/23/25 10:36 ABG pH 7.40 ABG pCO2 38 ABG pO2 67 L ABG HCO3 23 ABG O2 Saturation 93 ABG Base Excess -1 Quality Measures Quality Measures stroke Suspected type of Stroke: Non Acute Last known well (date): 09/22/25 Last known well (time): 22:00 Tenecteplase given: Reason(s) Tenecteplase not given: Outside the time window not given Rehab services: PT evaluation ordered and Speech Language Pathology eval ordered VTE Prophylaxis: pharmaceutical Antithrombotic by day 2:: not indicated (describe) Statin ordered: <75 y/o high intensity dose Anticoagulation ordered for A-fib or flutter (current or hx): not indicated Advance care planning discussed with:: patient and child Assessment & Plan Assessment Current Active Medications: Generic Name Dose Route Start Last Admin Trade Name Dante PRN Reason Stop Dose Admin Acetaminophen 650 mg 09/23/25 11:41 09/29/25 13:59 Acetaminophen 325 Mg Tablet PO 10/23/25 11:40 650 mg Q6H PRN Administration Fever >100.3 or Mild Pain 1-3 Acetaminophen 650 mg 09/23/25 11:41 Acetaminophen Supp 650 Mg Supp AK 10/23/25 11:40 Q6H PRN PAIN SCALE 1-3 (mild Protocol Hydrocodone Bitart/Acetaminophen 1 tab 09/29/25 16:37 Hydrocodone/Apap 5/325 Tablet PO 10/04/25 16:36 Q8HR PRN Severe Pain 7-10 Aspirin 81 mg 09/29/25 09:00 10/02/25 09:14 Aspirin 81 Mg Chew PO 10/24/25 08:59 81 mg QDAY BRITNEY Administration Atorvastatin Calcium 80 mg 09/23/25 21:00 10/01/25 21:02 Atorvastatin Calcium 20 Mg Tablet PO 10/23/25 20:59 80 mg HS BRITNEY Administration Clopidogrel Bisulfate 75 mg 09/24/25 09:00 10/02/25 09:14 Clopidogrel Bisulfate 75 Mg Tablet PO 10/24/25 08:59 75 mg QDAY BRITNEY Administration Dextrose 25 ml 09/23/25 15:33 Dextrose 50%-Water Inj 50 Ml Syringe IV 10/23/25 15:32 Q15MIN PRN BG 50-70 responsive npo pt Dextrose 50 ml 09/23/25 15:33 Dextrose 50%-Water Inj 50 Ml Syringe IV 10/23/25 15:32 Q15MIN PRN BG <50 OR BG <70 & pt unresponsive Escitalopram Oxalate 10 mg 09/25/25 15:15 10/02/25 09:14 Escitalopram Oxalate 10 Mg Tablet PO 10/25/25 15:14 10 mg QDAY BRITNEY Administration Glucagon 1 mg 09/23/25 15:33 Glucagon Inj 1 Mg Vial IM Q15MIN PRN BG <70, and no IV access Heparin Sodium (Porcine) 5,000 unit 09/23/25 14:00 10/02/25 05:06 Heparin Sod Inj 5000 Unit/Ml Vial SC 10/07/25 13:59 5,000 unit Q8HR BRITNEY Administration Insulin Human Lispro 0 unit 09/23/25 17:00 10/02/25 08:00 Insulin Lispro (Admelog) 1 Unit/0.01 Ml Unit SC 10/23/25 16:59 Not Given ACHS BRITNEY Protocol Labetalol HCl 10 mg 09/23/25 11:47 Labetalol Inj 5 Mg/Ml Vial 20 Ml IVP 10/23/25 11:46 Q4HR PRN Hypertension Losartan Potassium 50 mg 09/30/25 09:00 Losartan Potassium 25 Mg Tablet PO 10/30/25 08:59 On Hold: 09/30/25 09:00 QDAY BRITNEY Ondansetron HCl 4 mg 09/23/25 09:13 Ondansetron Inj 2 Mg/Ml Inj 2 Ml IVP 10/23/25 09:12 Q4HR PRN NAUSEA OR VOMITING Pantoprazole Sodium 40 mg 09/24/25 09:00 10/02/25 09:14 Pantoprazole 40 Mg Tablet PO 10/24/25 08:59 40 mg QDAY BRITNEY Administration Polyethylene Glycol 17 gm 09/29/25 16:45 10/02/25 09:14 Polyethylene Glycol 17 Gm Packet PO 10/29/25 16:44 17 gm QDAY BRITNEY Administration Sennosides 1 tab 09/23/25 11:41 Senna Tablet PO 10/23/25 11:40 QDAY PRN constipation Protocol Tamsulosin HCl 0.4 mg 09/30/25 17:15 10/02/25 09:14 Tamsulosin Hcl 0.4 Mg Capsule PO 10/30/25 17:14 0.4 mg QDAY BRITNEY Administration Plan Patient is a [id number]-oglqnmig 70-year-old female with a PMH of insulin- independent T2DM noncompliant on metformin, hypertension noncompliant on lisinopril, hyperlipidemia noncompliant on simvastatin, and chronic dizziness on dimenhydrinate who presented on 09/23 with a chief complaint of generalized weakness and altered mental status. Patient was admitted for the work-up and management of stroke-like symptoms (no TNK administered), hypertensive emergency, anion gap metabolic acidosis with lactic acidosis, and UTI. In-house Neurology (Dr. Martinez) was consulted and is closely following the case. #s/p CVA, acute infarct of the left brainstem at the pontine level #Right-sided hemiplegia Per documentation by Teleneurology, patient initially presented with slurred speech and left facial droop (NIHSS 3) but this has seemed to resolve by time of this sql report writer's interview (NIHSS 0) Per daughter, patient also seemed to have new right-sided weakness that is not present at baseline 09/23 CT head and CTA head/neck both negative for signs of hemorrhage or LVO TNK not administered as LKWT was 8 PM and patient was outside eligible time window Given PO Plavix loading dose of 300 mg x 1 in the ED UA suggestive of possible UTI although patient denies any urinary symptoms Dx: -Ordered HgbA1c, showed 10.0 -Ordered lipid panel, showed cholesterol 254, LDL 173 -Ordered TSH and free T4, showed 0.87 and 1.40 (both WNL) -09/23 echocardiogram was negative for PFO or ASD -09/23 stroke protocol brain MRI showed 15 mm acute infarct of the left brainstem at the pontine level as well as significant cerebral arterial sclerotic disease Rx: -PO aspirin 81 mg daily and PO Plavix 75 mg daily -PO atorvastatin 80 mg daily -Ordered PT, recommended physical therapy -Speech therapy following the patient - noted to have improvement in Dysarthria -Neurology (Dr. Martinez) is following the patient #Hypertensive emergency #Primary hypertension, uncontrolled i/s/o medication non-compliance 09/23 admission BP 199/76 with signs of end-organ damage including altered mental status and lactic acidosis Patient apparently has home medication of lisinopril but has not taken it since about a year ago Initially patient needed Losartan 50mg BID and Amlodipine 10mg once daily Rx: Stopped all the Antihypertensives as blood pressure is within normal limits without the medications #Rnk-[id number]-[id number] diabetes mellitus type 2, uncontrolled i/s/o medication non-compliance [10%] 09/23 admission blood glucose of 300, BHB 0.3 (WNL) Patient reportedly has T2DM but has not taken her home metformin since about a year ago Dx: -HgbA1c this admission 10.0 Rx: -ISS #Hyperlipidemia Self-reported history with home medication of simvastatin Dx: -Lipid panel as above Rx: -PO atorvastatin 80 mg qHS #Major depressive disorder Daughter reports that patient became non-compliant with her medications after the of her about a year ago Dx: -PHQ-9 Assessment Score: 17 Rx: -Lexapro 10 mg PO qD Hospital Management: Disposition: Admitted to [facility] for stroke protocol, hypertensive emergency, pending insurance authorization for SNF placement Diet: Carbohydrate Consistent GI Prophylaxis: PO Protonix 40 mg daily Bowel Prophylaxis: PO Senna 1 tab daily as needed DVT Prophylaxis: Subcutaneous heparin 5000 units every 8 hours CODE STATUS: Full Code Patient plan of care was discussed with the attending physician Dr. Encinas and senior resident Dr. Jl Stallings, DO PGY-1
[2025-10-02 12:00] VITALS: BP 153/81; PULSE 84; PULSE 87; RESP 21; TEMP 36.2; O2SAT 95
[2025-10-02] MEDS: LACTULOSE SYRUP 20 GM/30 ML UDC PO (13:16)
[2025-10-02 16:00] VITALS: BP 141/81; PULSE 90; PULSE 94; RESP 19; TEMP 36.1; O2SAT 96
[2025-10-02 20:00] VITALS: BP 132/74; PULSE 74; PULSE 82; RESP 17; TEMP 36.4; O2SAT 94
[2025-10-02] MEDS: ATORVASTATIN CALCIUM 20 MG TABLET 80 MG PO (20:59)
[2025-10-03] VITALS (8 sets, daily range): BP systolic 114–130; BP diastolic 64–83; PULSE 73–86; RESP 17–18; TEMP 36.1–36.4; O2SAT 94–97; BMI 25.1; BMI 11.0
[2025-10-03] MEDS: HEPARIN SOD INJ 5000 UNIT/ML VIAL SC ×3 (05:14→21:10)
[2025-10-03] MEDS: POLYETHYLENE GLYCOL 17 GM PACKET PO (09:28)
[2025-10-03] MEDS: CLOPIDOGREL BISULFATE 75 MG TABLET PO (09:28)
[2025-10-03] MEDS: ESCITALOPRAM OXALATE 10 MG TABLET PO (09:28)
[2025-10-03] MEDS: PANTOPRAZOLE 40 MG TABLET PO (09:28)
[2025-10-03] MEDS: TAMSULOSIN HCL 0.4 MG CAPSULE PO (09:28)
[2025-10-03] MEDS: ASPIRIN 81 MG CHEW PO (09:28)
--- NOTE | 2025-10-03 09:37 | ESPR_ITS ---
<Statement entered by Bre Encinas MD - 10/13/25 08:06> I reviewed above note and agree with findings and plans. I have also personally examined the patient with medicine team and went over assessment and plan with medical team including hospitality internship and resident physician. Documentation for date of: 10/03/25 Subjective Subjective Interval history: Patient seen at bedside this morning. Family member at bedside to assist with translation. She reports that the patient is doing well, today she stood up for the first time with physical therapy. Patient ate some waffles for breakfast. Overall the patient's speech and movement capabilities appear to remain the same. Continues to have flaccid right side. Currently still attempting to reach out to patient's insurance [facility] for approval. nutritional services director following up. Family presented a personal letter written to appeal the initial denial by [employer]. Will provide in support of appeal. Exam Vital Signs Temp Pulse Resp BP Pulse Ox O2 Del Method FiO2 97.6 F 82 17 127/73 94 L Room Air 97 10/03/25 07:38 10/03/25 07:38 10/03/25 07:38 10/03/25 07:38 10/03/25 07:38 10/03/25 07:38 09/23/25 09:18 Narrative Exam General: Awake. HEENT: Normocephalic, atraumatic, mucous membranes moist. Heart: Regular rate and rhythm, no murmurs. Lungs: Clear to auscultation with no wheezing or crackles. Abdomen: Soft, nondistended, nontender, positive bowel sounds. ?No guarding or rebound tenderness. Neurologic: Right-sided extraocular movements impaired with left-side intact. Alert and oriented x3, 0/5 power on Right side Extremities: No edema. Skin: No rash or ecchymoses. Objective Labs 10/01/25 05:53 10/01/25 05:53 ABG Interpretation ABG results: 09/23/25 10:36 ABG pH 7.40 ABG pCO2 38 ABG pO2 67 L ABG HCO3 23 ABG O2 Saturation 93 ABG Base Excess -1 Quality Measures Quality Measures stroke Suspected type of Stroke: Non Acute Last known well (date): 09/22/25 Last known well (time): 22:00 Tenecteplase given: Reason(s) Tenecteplase not given: Outside the time window not given Rehab services: PT evaluation ordered and Speech Language Pathology eval ordered VTE Prophylaxis: pharmaceutical Antithrombotic by day 2:: not indicated (describe) Statin ordered: >75 y/o moderate or high intensity dose Anticoagulation ordered for A-fib or flutter (current or hx): not indicated Advance care planning discussed with:: patient Assessment & Plan Assessment Current Active Medications: Generic Name Dose Route Start Last Admin Trade Name Freq PRN Reason Stop Dose Admin Acetaminophen 650 mg 09/23/25 11:41 09/29/25 13:59 Acetaminophen 325 Mg Tablet PO 10/23/25 11:40 650 mg Q6H PRN Administration Fever >100.3 or Mild Pain 1-3 Acetaminophen 650 mg 09/23/25 11:41 Acetaminophen Supp [address] 10/23/25 11:40 Q6H PRN PAIN SCALE 1-3 (mild Protocol Hydrocodone Bitart/Acetaminophen 1 tab 09/29/25 16:37 Hydrocodone/Apap 5/325 Tablet PO 10/04/25 16:36 Q8HR PRN Severe Pain 7-10 Aspirin 81 mg 09/29/25 09:00 10/03/25 09:28 Aspirin 81 Mg Chew PO 10/24/25 08:59 81 mg QDAY BRITNEY Administration Atorvastatin Calcium 80 mg 09/23/25 21:00 10/02/25 20:59 Atorvastatin Calcium 20 Mg Tablet PO 10/23/25 20:59 80 mg HS BRITNEY Administration Clopidogrel Bisulfate 75 mg 09/24/25 09:00 10/03/25 09:28 Clopidogrel Bisulfate 75 Mg Tablet PO 10/24/25 08:59 75 mg QDAY BRITNEY Administration Dextrose 25 ml 09/23/25 15:33 Dextrose 50%-Water Inj 50 Ml Syringe IV 10/23/25 15:32 Q15MIN PRN BG 50-70 responsive npo pt Dextrose 50 ml 09/23/25 15:33 Dextrose 50%-Water Inj 50 Ml Syringe IV 10/23/25 15:32 Q15MIN PRN BG <50 OR BG <70 & pt unresponsive Escitalopram Oxalate 10 mg 09/25/25 15:15 10/03/25 09:28 Escitalopram Oxalate 10 Mg Tablet PO 10/25/25 15:14 10 mg QDAY BRITNEY Administration Glucagon 1 mg 09/23/25 15:33 Glucagon Inj 1 Mg Vial IM Q15MIN PRN BG <70, and no IV access Heparin Sodium (Porcine) 5,000 unit 09/23/25 14:00 10/03/25 05:14 Heparin Sod Inj 5000 Unit/Ml Vial SC 10/07/25 13:59 5,000 unit Q8HR BRITNEY Administration Insulin Human Lispro 0 unit 09/23/25 17:00 10/03/25 07:40 Insulin Lispro (Admelog) 1 Unit/0.01 Ml Unit SC 10/23/25 16:59 Not Given ACHS BRITNEY Protocol Labetalol HCl 10 mg 09/23/25 11:47 Labetalol Inj 5 Mg/Ml Vial 20 Ml IVP 10/23/25 11:46 Q4HR PRN Hypertension Losartan Potassium 50 mg 09/30/25 09:00 Losartan Potassium 25 Mg Tablet PO 10/30/25 08:59 On Hold: 09/30/25 09:00 QDAY BRITNEY Ondansetron HCl 4 mg 09/23/25 09:13 Ondansetron Inj 2 Mg/Ml Inj 2 Ml IVP 10/23/25 09:12 Q4HR PRN NAUSEA OR VOMITING Pantoprazole Sodium 40 mg 09/24/25 09:00 10/03/25 09:28 Pantoprazole 40 Mg Tablet PO 10/24/25 08:59 40 mg QDAY BRITNEY Administration Polyethylene Glycol 17 gm 09/29/25 16:45 10/03/25 09:28 Polyethylene Glycol 17 Gm Packet PO 10/29/25 16:44 17 gm QDAY BRITNEY Administration Sennosides 1 tab 09/23/25 11:41 Senna Tablet PO 10/23/25 11:40 QDAY PRN constipation Protocol Tamsulosin HCl 0.4 mg 09/30/25 17:15 10/03/25 09:28 Tamsulosin Hcl 0.4 Mg Capsule PO 10/30/25 17:14 0.4 mg QDAY BRITNEY Administration Plan Patient is a [id number] 70-year-old female with a PMH of insulin- independent T2DM noncompliant on metformin, hypertension noncompliant on lisinopril, hyperlipidemia noncompliant on simvastatin, and chronic dizziness on dimenhydrinate who presented on 09/23 with a chief complaint of generalized weakness and altered mental status. Patient was admitted for the work-up and management of stroke-like symptoms (no TNK administered), hypertensive emergency, anion gap metabolic acidosis with lactic acidosis, and UTI. In-house Neurology (Dr. Martinez) was consulted and is closely following the case. 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 #Right-sided hemiplegia Per documentation by Teleneurology, patient initially presented with slurred speech and left facial droop (NIHSS 3) but this has seemed to resolve by time of this teletypewriter installer's interview (NIHSS 0) Per daughter, patient also seemed to have new right-sided weakness that is not present at baseline 09/23 CT head and CTA head/neck both negative for signs of hemorrhage or LVO TNK not administered as LKWT was 8 PM and patient was outside eligible time window Given PO Plavix loading dose of 300 mg x 1 in the ED UA suggestive of possible UTI although patient denies any urinary symptoms Dx: -HgbA1c, 10.0 -Lipid panel, showed cholesterol 254, LDL 173 -TSH 0.87 and free T4 1.40 (both WNL) -09/23 echocardiogram was negative for PFO or ASD -09/23 stroke protocol brain MRI showed 15 mm acute infarct of the left brainstem at the pontine level as well as significant cerebral arterial sclerotic disease Rx: -PO aspirin 81 mg daily and PO Plavix 75 mg daily -PO atorvastatin 80 mg daily -Continued physical therapy -Continued speech therapy -Neurology (Dr. Martinez) is following the patient #Hypertensive emergency #Primary hypertension, uncontrolled due to medication non-compliance 09/23 admission BP 199/76 with signs of end-organ damage including altered mental status and lactic acidosis Patient apparently has home medication of lisinopril but has not taken it since about a year ago, so patient was non-compliance Initially patient needed losartan 50 mg BID and amlodipine 10 mg once daily Rx: -Stopped all the antihypertensives as blood pressure is within normal limits without the medications #Gez-uflzxqs-zyfnukrcs diabetes mellitus type 2 09/23 admission blood glucose of 300, BHB 0.3 (WNL) Patient reportedly has T2DM but has not taken her home metformin since about a year ago Dx: -HgbA1c this admission 10.0 Rx: -ISS #Hyperlipidemia Self-reported history with home medication of simvastatin Dx: -Lipid panel as above Rx: -PO atorvastatin 80 mg qHS #Major depressive disorder Daughter reports that patient became non-compliant with her medications after the of her about a year ago Dx: -PHQ-9 Assessment Score: 17 Rx: -Lexapro 10 mg PO qD Hospital Management: Disposition: Admitted to [facility] for stroke protocol, hypertensive emergency, pending insurance authorization for SNF placement Diet: Carbohydrate Consistent GI Prophylaxis: PO Protonix 40 mg daily Bowel Prophylaxis: PO Senna 1 tab daily as needed DVT Prophylaxis: Subcutaneous heparin 5000 units every 8 hours CODE STATUS: Full Code Patient plan of care was discussed with the attending physician, Dr. Encinas. Susanne Muhammad, PGY-3
--- NOTE | 2025-10-03 14:50 | PC.SS ---
SS reached out to [facility] [phone] spoke to Venessa who stated they are still pending Dr. Greg gordillo. Venessa stated they will call when they have an update. SS also inquired on fax to can forward Letter from Family to present to Dr. Weinstein. F#[phone]
[2025-10-03] MEDS: ATORVASTATIN CALCIUM 20 MG TABLET 80 MG PO (21:07)
[2025-10-04] VITALS (7 sets, daily range): BP systolic 115–136; BP diastolic 70–83; PULSE 78–91; RESP 16–20; TEMP 36.1–36.7; O2SAT 95–98; BMI 25.1; BMI 12.0
[2025-10-04] MEDS: HEPARIN SOD INJ 5000 UNIT/ML VIAL SC ×3 (05:12→21:30)
[2025-10-04] MEDS: INSULIN LISPRO (AdmeLOG) 1 UNIT/0.01 ML UNIT SC ×2 (07:27→21:32)
[2025-10-04] MEDS: CLOPIDOGREL BISULFATE 75 MG TABLET PO (08:07)
[2025-10-04] MEDS: ESCITALOPRAM OXALATE 10 MG TABLET PO (08:07)
[2025-10-04] MEDS: PANTOPRAZOLE 40 MG TABLET PO (08:07)
[2025-10-04] MEDS: ASPIRIN 81 MG CHEW PO (08:07)
[2025-10-04] MEDS: POLYETHYLENE GLYCOL 17 GM PACKET PO (08:07)
[2025-10-04] MEDS: TAMSULOSIN HCL 0.4 MG CAPSULE PO (08:09)
--- NOTE | 2025-10-04 14:41 | ESPR_ITS ---
Documentation for date of: 10/04/25 Subjective Subjective Interval history: No acute events overnight.?Patient seen and examined at bedside this AM.?Vitals were reviewed and normal.?Patient has been working with physical therapy for at least 30 minutes daily. She has required maximum assistance for sitting and has been working on passive range of motion on the right side with family members helping the patient practice outside of the PT sessions. Still pending insurance authorization. Discharge order is placed daily as the patient has been ready to discharge and medically cleared for more than a week. Attempts have been made by the primary medical team and foster care social worker to reach out to [facility] but there has not been any call back from the physician reviewer regarding the case. Review of systems otherwise negative except what is mentioned above. Exam Vital Signs Temp Pulse Resp BP Pulse Ox O2 Del Method FiO2 97.6 F 85 16 125/79 95 Room Air 97 10/04/25 12:00 10/04/25 12:00 10/04/25 12:00 10/04/25 12:00 10/04/25 12:00 10/04/25 12:00 10/04/25 12:00 Narrative Exam General: Awake. HEENT: Normocephalic, atraumatic, mucous membranes moist. Heart: Regular rate and rhythm, no murmurs. Lungs: Clear to auscultation with no wheezing or crackles. Abdomen: Soft, nondistended, nontender, positive bowel sounds. ?No guarding or rebound tenderness. Neurologic: Right-sided extraocular movements impaired with left-side intact. Alert and oriented x3, 0/5 power on Right side Extremities: No edema. Skin: No rash or ecchymoses. Objective Labs 10/01/25 05:53 10/01/25 05:53 ABG Interpretation ABG results: 09/23/25 10:36 ABG pH 7.40 ABG pCO2 38 ABG pO2 67 L ABG HCO3 23 ABG O2 Saturation 93 ABG Base Excess -1 Quality Measures Quality Measures stroke Suspected type of Stroke: Non Acute Last known well (date): 09/22/25 Last known well (time): 22:00 Tenecteplase given: Reason(s) Tenecteplase not given: Outside the time window not given Rehab services: PT evaluation ordered and Speech Language Pathology eval ordered VTE Prophylaxis: pharmaceutical Antithrombotic by day 2:: not indicated (describe) Statin ordered: >75 y/o moderate or high intensity dose Anticoagulation ordered for A-fib or flutter (current or hx): not indicated Advance care planning discussed with:: patient Assessment & Plan Assessment Current Active Medications: Generic Name Dose Route Start Last Admin Trade Name Freq PRN Reason Stop Dose Admin Acetaminophen 650 mg 09/23/25 11:41 09/29/25 13:59 Acetaminophen 325 Mg Tablet PO 10/23/25 11:40 650 mg Q6H PRN Administration Fever >100.3 or Mild Pain 1-3 Acetaminophen 650 mg 09/23/25 11:41 Acetaminophen Supp 650 Mg Supp NC 10/23/25 11:40 Q6H PRN PAIN SCALE 1-3 (mild Protocol Hydrocodone Bitart/Acetaminophen 1 tab 09/29/25 16:37 Hydrocodone/Apap 5/325 Tablet PO 10/04/25 16:36 Q8HR PRN Severe Pain 7-10 Aspirin 81 mg 09/29/25 09:00 10/04/25 08:07 Aspirin 81 Mg Chew PO 10/24/25 08:59 81 mg QDAY BRITNEY Administration Atorvastatin Calcium 80 mg 09/23/25 21:00 10/03/25 21:07 Atorvastatin Calcium 20 Mg Tablet PO 10/23/25 20:59 80 mg HS BRITNEY Administration Clopidogrel Bisulfate 75 mg 09/24/25 09:00 10/04/25 08:07 Clopidogrel Bisulfate 75 Mg Tablet PO 10/24/25 08:59 75 mg QDAY BRITNEY Administration Dextrose 25 ml 09/23/25 15:33 Dextrose 50%-Water Inj 50 Ml Syringe IV 10/23/25 15:32 Q15MIN PRN BG 50-70 responsive npo pt Dextrose 50 ml 09/23/25 15:33 Dextrose 50%-Water Inj 50 Ml Syringe IV 10/23/25 15:32 Q15MIN PRN BG <50 OR BG <70 & pt unresponsive Escitalopram Oxalate 10 mg 09/25/25 15:15 10/04/25 08:07 Escitalopram Oxalate 10 Mg Tablet PO 10/25/25 15:14 10 mg QDAY BRITNEY Administration Glucagon 1 mg 09/23/25 15:33 Glucagon Inj 1 Mg Vial IM Q15MIN PRN BG <70, and no IV access Heparin Sodium (Porcine) 5,000 unit 09/23/25 14:00 10/04/25 14:15 Heparin Sod Inj 5000 Unit/Ml Vial SC 10/07/25 13:59 5,000 unit Q8HR BRITNEY Administration Insulin Human Lispro 0 unit 09/23/25 17:00 10/04/25 11:33 Insulin Lispro (Admelog) 1 Unit/0.01 Ml Unit SC 10/23/25 16:59 Not Given ACHS BRITNEY Protocol Labetalol HCl 10 mg 09/23/25 11:47 Labetalol Inj 5 Mg/Ml Vial 20 Ml IVP 10/23/25 11:46 Q4HR PRN Hypertension Losartan Potassium 50 mg 09/30/25 09:00 Losartan Potassium 25 Mg Tablet PO 10/30/25 08:59 On Hold: 09/30/25 09:00 QDAY BRITNEY Ondansetron HCl 4 mg 09/23/25 09:13 Ondansetron Inj 2 Mg/Ml Inj 2 Ml IVP 10/23/25 09:12 Q4HR PRN NAUSEA OR VOMITING Pantoprazole Sodium 40 mg 09/24/25 09:00 10/04/25 08:07 Pantoprazole 40 Mg Tablet PO 10/24/25 08:59 40 mg QDAY BRITNEY Administration Polyethylene Glycol 17 gm 09/29/25 16:45 10/04/25 08:07 Polyethylene Glycol 17 Gm Packet PO 10/29/25 16:44 17 gm QDAY BRITNEY Administration Sennosides 1 tab 09/23/25 11:41 Senna Tablet PO 10/23/25 11:40 QDAY PRN constipation Protocol Tamsulosin HCl 0.4 mg 09/30/25 17:15 10/04/25 08:09 Tamsulosin Hcl 0.4 Mg Capsule PO 10/30/25 17:14 0.4 mg QDAY BRITNEY Administration Plan Patient is a [id number] 70-year-old female with a PMH of insulin- independent T2DM noncompliant on metformin, hypertension noncompliant on lisinopril, hyperlipidemia noncompliant on simvastatin, and chronic dizziness on dimenhydrinate who presented on 09/23 with a chief complaint of generalized weakness and altered mental status. Patient was admitted for the work-up and management of stroke-like symptoms (no TNK administered), hypertensive emergency, anion gap metabolic acidosis with lactic acidosis, and UTI. In-house Neurology (Dr. Martinez) was consulted and is closely following the case. 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 #Right-sided hemiplegia Per documentation by Teleneurology, patient initially presented with slurred speech and left facial droop (NIHSS 3) but this has seemed to resolve by time of this proposal lead writer's interview (NIHSS 0) Per daughter, patient also seemed to have new right-sided weakness that is not present at baseline 09/23 CT head and CTA head/neck both negative for signs of hemorrhage or LVO TNK not administered as LKWT was 8 PM and patient was outside eligible time window Given PO Plavix loading dose of 300 mg x 1 in the ED UA suggestive of possible UTI although patient denies any urinary symptoms Dx: -HgbA1c, 10.0 -Lipid panel, showed cholesterol 254, LDL 173 -TSH 0.87 and free T4 1.40 (both WNL) -09/23 echocardiogram was negative for PFO or ASD -09/23 stroke protocol brain MRI showed 15 mm acute infarct of the left brainstem at the pontine level as well as significant cerebral arterial sclerotic disease Rx: -PO aspirin 81 mg daily and PO Plavix 75 mg daily -PO atorvastatin 80 mg daily -Continued physical therapy -Continued speech therapy -Neurology (Dr. Martinez) is following the patient #Hypertensive emergency #Primary hypertension, uncontrolled due to medication non-compliance 09/23 admission BP 199/76 with signs of end-organ damage including altered mental status and lactic acidosis Patient apparently has home medication of lisinopril but has not taken it since about a year ago, so patient was non-compliance Initially patient needed losartan 50 mg BID and amlodipine 10 mg once daily Rx: -Stopped all the antihypertensives as blood pressure is within normal limits without the medications #Phd-sbbfwmg-tsfspsudn diabetes mellitus type 2 09/23 admission blood glucose of 300, BHB 0.3 (WNL) Patient reportedly has T2DM but has not taken her home metformin since about a year ago Dx: -HgbA1c this admission 10.0 Rx: -ISS #Hyperlipidemia Self-reported history with home medication of simvastatin Dx: -Lipid panel as above Rx: -PO atorvastatin 80 mg qHS #Major depressive disorder Daughter reports that patient became non-compliant with her medications after the of her about a year ago Dx: -PHQ-9 Assessment Score: 17 Rx: -Lexapro 10 mg PO qD Hospital Management: Disposition: Admitted to [facility] for stroke protocol, hypertensive emergency, pending insurance authorization for SNF placement Diet: Carbohydrate Consistent GI Prophylaxis: PO Protonix 40 mg daily Bowel Prophylaxis: PO Senna 1 tab daily as needed DVT Prophylaxis: Subcutaneous heparin 5000 units every 8 hours CODE STATUS: Full Code Patient plan of care was discussed with the attending physician, Dr. Encinas. Susanne Muhammad, PGY-3 Attending Provider Attestation/Addendum I have examined the patient, reviewed labs and imaging findings, discussed the case with the resident(s), and reviewed entered orders. I agree with the plan of care as outlined in this note, with these additional summaries/recommendations: Patient seen at bedside. No acute overnight events. Per documentation patient has been pending placement for over 5 days. The patient is admitted and diagnosed with a severe acute CVA which is 15 mm in the left brainstem pontine level with severe residual neurodeficits. Standard of care would be for patient to be discharged to assisted facility to continue physical therapy to hopefully obtain some recovery. Pending insurance authorization. Continue DAPT and high intensity statin. Continue to control vascular risk factors. Continue insulin sliding scale for diabetes mellitus type 2. Target blood sugar of 140- 180 while hospitalized. Patient updated on the plan and agreement. All questions answered to satisfaction. Dr. Paulo MD
[2025-10-04] MEDS: ATORVASTATIN CALCIUM 20 MG TABLET 80 MG PO (21:30)
[2025-10-05] VITALS: BP 108/69; PULSE 80; PULSE 85; RESP 16; TEMP 36.3; O2SAT 95
[2025-10-05 04:00] VITALS: BP 116/69; PULSE 87; PULSE 88; RESP 17; TEMP 36.4; O2SAT 95
[2025-10-05 06:00] VITALS: BMI 25.1
[2025-10-05] MEDS: HEPARIN SOD INJ 5000 UNIT/ML VIAL SC ×3 (06:03→21:37)
[2025-10-05 08:00] VITALS: BP 121/82; PULSE 84; PULSE 87; RESP 17; TEMP 36.1; O2SAT 95
[2025-10-05] MEDS: CLOPIDOGREL BISULFATE 75 MG TABLET PO (08:07)
[2025-10-05] MEDS: ESCITALOPRAM OXALATE 10 MG TABLET PO (08:07)
[2025-10-05] MEDS: ASPIRIN 81 MG CHEW PO (08:07)
[2025-10-05] MEDS: POLYETHYLENE GLYCOL 17 GM PACKET PO (08:07)
[2025-10-05] MEDS: TAMSULOSIN HCL 0.4 MG CAPSULE PO (08:07)
[2025-10-05] MEDS: PANTOPRAZOLE 40 MG TABLET PO (08:07)
--- NOTE | 2025-10-05 09:00 | PC.SS ---
Addendum entered by Denise Gamez 10/05/25 13:32: SS reached out to [facility] [phone], SS spoke to Krissy. They are in the process of an SHARLENE with [facility]. Krissy stated as soon as they have an auth they will contact us along with [facility]. SS updated dtr Quita [phone], who expressed extreme gratitude for all the help provided by social science research assistant team Addendum entered by Denise Gamez 10/05/25 10:55: SS received a call from [facility] who stated if we have a chosen facility for SNF, SS reiterated family chose [facility], per Venessa they will have their pillowcase maker reach out to them for SHARLENE. Original Note: SS reached out to [facility] [phone] spoke to Venessa who stated they are still pending Dr. Santino barker who will do reviews again at 11am, but she stated it seems as if they are leaning towards residential not skilled. SS also inquired if they received letter from family that was faxed 10/03/25 [phone], per Venessa she did not see it in file. SS faxed again to fax #[phone] 10/05/25 1510. SS called, pt dtr Quita [phone] and updated her on information obtained, per Quita if pt has to DC home with HH they will need DME, hospital bed, wheelchair and 3in1 BSC.
--- NOTE | 2025-10-05 09:36 | PC.SS ---
Hospital Beds Patient?s diagnosis requires positioning of the head or upper body to be elevated more than 30 degrees. Also the diagnosis requires positioning in order to alleviate pain and if the patient requires frequent changes in the body positioning and/or has an immediate need for change in the body position. Pillows and wedges have been considered and ruled out. Pt is in need of a semi-electric hospital bed for a safe discharge WheelChairs Patients diagnosis creates mobility limitations that significantly impairs ability to participate in the patients activities of daily living either in their entirety, or in a reasonable time frame in the home and the patients mobility limitations can not be sufficiently resolved with an appropriately fitted cane or walker. Also the use of a manual wheelchair will sufficiently improve patients ability to participate in the activities of daily living in the home and the patient is willing to use the wheelchair that is provided in the home. The patient has some one in the home that is available, willing and able to provide assistance with the wheelchair. Bedside Commode Patient is physically incapable of utilizing regular toilet facilities because his or her diagnosis confines the patient to a single room. Patient is confined to a single level, and there is no toilet on that level; patient cannot access the toilet facilities in a timely manner due to lack of ambulation.
[2025-10-05 10:54] VITALS: BMI 12.0
[2025-10-05 11:23] VITALS: BMI 25.1
[2025-10-05] MEDS: INSULIN LISPRO (AdmeLOG) 1 UNIT/0.01 ML UNIT SC (11:48)
[2025-10-05 12:00] VITALS: BP 143/86; PULSE 82; PULSE 89; RESP 19; TEMP 36.5; O2SAT 96
[2025-10-05 16:00] VITALS: BP 120/69; PULSE 83; PULSE 85; RESP 19; TEMP 36.7; O2SAT 94
--- NOTE | 2025-10-05 17:00 | ESPR_ITS ---
Documentation for date of: 10/05/25 Subjective Subjective Interval history: No acute events overnight.?Patient seen and examined at bedside this AM.?Vitals were reviewed and normal.?Patient continues to work with physical therapy daily. [employer]eles[employer] representative is working on insurance authorization, was able to reach out to [facility] and was able to progress to letter of agreement. Will wait for approval of letter of agreement between [facility] and [facility]. Review of systems otherwise negative except what is mentioned above. Exam Vital Signs Temp Pulse Resp BP Pulse Ox O2 Del Method FiO2 98.0 F 85 19 120/69 94 L Room Air 97 10/05/25 16:00 10/05/25 16:00 10/05/25 16:00 10/05/25 16:00 10/05/25 16:00 10/05/25 12:00 10/04/25 16:00 Narrative Exam General: Awake. HEENT: Normocephalic, atraumatic, mucous membranes moist. Heart: Regular rate and rhythm, no murmurs. Lungs: Clear to auscultation with no wheezing or crackles. Abdomen: Soft, nondistended, nontender, positive bowel sounds. ?No guarding or rebound tenderness. Neurologic: Right-sided extraocular movements impaired with left-side intact. Alert and oriented x3, 0/5 power on right side Extremities: No edema. Skin: No rash or ecchymoses. Objective Labs 10/06/25 04:23 10/06/25 04:23 ABG Interpretation ABG results: 09/23/25 10:36 ABG pH 7.40 ABG pCO2 38 ABG pO2 67 L ABG HCO3 23 ABG O2 Saturation 93 ABG Base Excess -1 Quality Measures Quality Measures stroke Suspected type of Stroke: Non Acute Last known well (date): 09/22/25 Last known well (time): 22:00 Tenecteplase given: Reason(s) Tenecteplase not given: Outside the time window not given Rehab services: PT evaluation ordered and Speech Language Pathology eval ordered VTE Prophylaxis: refused Antithrombotic by day 2:: not indicated (describe) Statin ordered: >75 y/o moderate or high intensity dose Anticoagulation ordered for A-fib or flutter (current or hx): not indicated Advance care planning discussed with:: patient Assessment & Plan Assessment Current Active Medications: Generic Name Dose Route Start Last Admin Trade Name Dante PRN Reason Stop Dose Admin Acetaminophen 650 mg 09/23/25 11:41 09/29/25 13:59 Acetaminophen 325 Mg Tablet PO 10/23/25 11:40 650 mg Q6H PRN Administration Fever >100.3 or Mild Pain 1-3 Acetaminophen 650 mg 09/23/25 11:41 Acetaminophen Supp 650 Mg Supp NM 10/23/25 11:40 Q6H PRN PAIN SCALE 1-3 (mild Protocol Aspirin 81 mg 09/29/25 09:00 10/05/25 08:07 Aspirin 81 Mg Chew PO 10/24/25 08:59 81 mg QDAY BRITNEY Administration Atorvastatin Calcium 80 mg 09/23/25 21:00 10/04/25 21:30 Atorvastatin Calcium 20 Mg Tablet PO 10/23/25 20:59 80 mg HS BRITNEY Administration Clopidogrel Bisulfate 75 mg 09/24/25 09:00 10/05/25 08:07 Clopidogrel Bisulfate 75 Mg Tablet PO 10/24/25 08:59 75 mg QDAY BRITNEY Administration Dextrose 25 ml 09/23/25 15:33 Dextrose 50%-Water Inj 50 Ml Syringe IV 10/23/25 15:32 Q15MIN PRN BG 50-70 responsive npo pt Dextrose 50 ml 09/23/25 15:33 Dextrose 50%-Water Inj 50 Ml Syringe IV 10/23/25 15:32 Q15MIN PRN BG <50 OR BG <70 & pt unresponsive Escitalopram Oxalate 10 mg 09/25/25 15:15 10/05/25 08:07 Escitalopram Oxalate 10 Mg Tablet PO 10/25/25 15:14 10 mg QDAY BRITNEY Administration Glucagon 1 mg 09/23/25 15:33 Glucagon Inj 1 Mg Vial IM Q15MIN PRN BG <70, and no IV access Heparin Sodium (Porcine) 5,000 unit 09/23/25 14:00 10/05/25 13:30 Heparin Sod Inj 5000 Unit/Ml Vial SC 10/07/25 13:59 5,000 unit Q8HR BRITNEY Administration Insulin Human Lispro 0 unit 09/23/25 17:00 10/05/25 11:48 Insulin Lispro (Admelog) 1 Unit/0.01 Ml Unit SC 10/23/25 16:59 3 unit ACHS BRITNEY Administration Protocol Labetalol HCl 10 mg 09/23/25 11:47 Labetalol Inj 5 Mg/Ml Vial 20 Ml IVP 10/23/25 11:46 Q4HR PRN Hypertension Losartan Potassium 50 mg 09/30/25 09:00 Losartan Potassium 25 Mg Tablet PO 10/30/25 08:59 On Hold: 09/30/25 09:00 QDAY BRITNEY Ondansetron HCl 4 mg 09/23/25 09:13 Ondansetron Inj 2 Mg/Ml Inj 2 Ml IVP 10/23/25 09:12 Q4HR PRN NAUSEA OR VOMITING Pantoprazole Sodium 40 mg 09/24/25 09:00 10/05/25 08:07 Pantoprazole 40 Mg Tablet PO 10/24/25 08:59 40 mg QDAY BRITNEY Administration Polyethylene Glycol 17 gm 09/29/25 16:45 10/05/25 08:07 Polyethylene Glycol 17 Gm Packet PO 10/29/25 16:44 17 gm QDAY BRITNEY Administration Sennosides 1 tab 09/23/25 11:41 Senna Tablet PO 10/23/25 11:40 QDAY PRN constipation Protocol Tamsulosin HCl 0.4 mg 09/30/25 17:15 10/05/25 08:07 Tamsulosin Hcl 0.4 Mg Capsule PO 10/30/25 17:14 0.4 mg QDAY BRITNEY Administration Plan Patient is a [id number]-[id number] 70-year-old female with a PMH of insulin- independent T2DM noncompliant on metformin, hypertension noncompliant on lisinopril, hyperlipidemia noncompliant on simvastatin, and chronic dizziness on dimenhydrinate who presented on 09/23 with a chief complaint of generalized weakness and altered mental status. Patient was admitted for the work-up and management of stroke-like symptoms (no TNK administered), hypertensive emergency, anion gap metabolic acidosis with lactic acidosis, and UTI. In-house Neurology (Dr. Martinez) was consulted and is closely following the case. 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 #Right-sided hemiplegia Per documentation by Teleneurology, patient initially presented with slurred speech and left facial droop (NIHSS 3) but this has seemed to resolve by time of this aligner typewriter's interview (NIHSS 0) Per daughter, patient also seemed to have new right-sided weakness that is not present at baseline 09/23 CT head and CTA head/neck both negative for signs of hemorrhage or LVO TNK not administered as LKWT was 8 PM and patient was outside eligible time window Given PO Plavix loading dose of 300 mg x 1 in the ED UA suggestive of possible UTI although patient denies any urinary symptoms Dx: -HgbA1c, 10.0 -Lipid panel, showed cholesterol 254, LDL 173 -TSH 0.87 and free T4 1.40 (both WNL) -09/23 echocardiogram was negative for PFO or ASD -09/23 stroke protocol brain MRI showed 15 mm acute infarct of the left brainstem at the pontine level as well as significant cerebral arterial sclerotic disease Rx: -PO aspirin 81 mg daily and PO Plavix 75 mg daily -PO atorvastatin 80 mg daily -Continued physical therapy -Continued speech therapy -Neurology (Dr. Martinez) is following the patient #Hypertensive emergency #Primary hypertension, uncontrolled due to medication non-compliance 09/23 admission BP 199/76 with signs of end-organ damage including altered mental status and lactic acidosis Patient apparently has home medication of lisinopril but has not taken it since about a year ago, so patient was non-compliance Initially patient needed losartan 50 mg BID and amlodipine 10 mg once daily Rx: -Stopped all the antihypertensives as blood pressure is within normal limits without the medications #Tmf-jwudncs-bnjdqemlk diabetes mellitus type 2 09/23 admission blood glucose of 300, BHB 0.3 (WNL) Patient reportedly has T2DM but has not taken her home metformin since about a year ago Dx: -HgbA1c this admission 10.0 Rx: -Continue with insulin sliding scale #Hyperlipidemia Self-reported history with home medication of simvastatin Dx: -Lipid panel as above Rx: -PO atorvastatin 80 mg qHS #Major depressive disorder Daughter reports that patient became non-compliant with her medications after the of her about a year ago Dx: -PHQ-9 Assessment Score: 17 Rx: -Lexapro 10 mg PO qD Hospital Management: Disposition: Admitted to [facility] for stroke protocol, hypertensive emergency, pending insurance authorization for SNF placement Diet: Carbohydrate Consistent GI Prophylaxis: PO Protonix 40 mg daily Bowel Prophylaxis: PO Senna 1 tab daily as needed DVT Prophylaxis: Subcutaneous heparin 5000 units every 8 hours CODE STATUS: Full Code Patient plan of care was discussed with the attending physician, Dr. Encinas. Susanne Muhammad, PGY-3 Attending Provider Attestation/Addendum I have examined the patient, reviewed labs and imaging findings, discussed the case with the resident(s), and reviewed entered orders. I agree with the plan of care as outlined in this note, with these additional summaries/recommendations: Patient & family seen at bedside. No acute overnight events. Patient and family have no new complaints today other than anxiety/frustration associated with her insurance company. Per documentation patient has been pending placement for over 5 days. The patient is admitted and diagnosed with a severe acute CVA which is 15 mm in the left brainstem pontine level with severe residual neurodeficits. Standard of care would be for patient to be discharged to care home facility to continue physical therapy to hopefully obtain some recovery. Pending insurance authorization. Continue DAPT and high intensity statin. Continue to control vascular risk factors. Continue insulin sliding scale for diabetes mellitus type 2. Target blood sugar of 140-180 while hospitalized. Patient updated on the plan and agreement. All questions answered to satisfaction. Dr. Paulo MD
[2025-10-05 20:00] VITALS: BP 132/73; PULSE 83; PULSE 85; RESP 17; TEMP 36.5; O2SAT 97
[2025-10-05] MEDS: ATORVASTATIN CALCIUM 20 MG TABLET 80 MG PO (21:33)
--- NOTE | 2025-10-05 22:46 | PD.NEUROPROG ---
Documentation for date of: 10/05/25 Subjective Subjective Interval history: Patient was seen at the bedside with her family. Continues to have some language disfluency and right-sided weakness including face arm and leg. Exam - Neurology Vital Signs Temp Pulse Resp BP Pulse Ox O2 Del Method FiO2 97.7 F 85 17 132/73 H 97 Room Air 97 10/05/25 20:00 10/05/25 20:00 10/05/25 20:00 10/05/25 20:00 10/05/25 20:00 10/05/25 20:00 10/04/25 16:00 Objective Labs 10/07/25 05:30 10/07/25 05:30 ABG Interpretation ABG results: 09/23/25 10:36 ABG pH 7.40 ABG pCO2 38 ABG pO2 67 L ABG HCO3 23 ABG O2 Saturation 93 ABG Base Excess -1 Assessment & Plan Assessment and plan (1) Acute CVA (cerebrovascular accident): Status: Acute Assessment and plan: MRI brain showed acute infarction in the left Julio. COntinue with DAPT and statin and BP control With dense hemiplegis Will need acute rehab at least for few weeks. (2) Hypertension: Status: Chronic Assessment and plan: better controlled now.
[2025-10-06] VITALS: BP 113/65; PULSE 105; PULSE 85; RESP 17; TEMP 36.4; O2SAT 95
[2025-10-06 04:00] VITALS: BP 120/70; PULSE 86; PULSE 94; RESP 17; TEMP 36.4; O2SAT 95
[2025-10-06] MEDS: HEPARIN SOD INJ 5000 UNIT/ML VIAL SC ×3 (05:47→21:40)
[2025-10-06 06:00] VITALS: BMI 25.1
[2025-10-06 06:07] LABS: Basophils # (Auto) 0.1 Thou/mm3 (0.0-0.2); Basophils % (Auto) 1 % (0-2.5); Eosinophils # (Auto) 0.6 Thou/mm3 (0.0-0.5); Eosinophils % (Auto) 7 % (0-10); Hematocrit 38.7 % (36.0-46.0); Hemoglobin 12.0 g/dL (12.0-16.0); Immature Granulocytes Auto 0.03 Thou/mm3 (0.00-0.00); Lymphocytes # (Auto) 1.2 Thou/mm3 (1.0-4.8); Lymphocytes % (Auto) 14 % (10-50); Mean Corpuscular HGB Conc 31.0 g/dl (31.0-37.0); Mean Corpuscular Hemoglobin 24.8 pg (25.0-35.0); Mean Corpuscular Volume 80 fL (80-100); Monocytes # (Auto) 0.6 Thou/mm3 (0.0-0.8); Monocytes % (Auto) 7 % (0-12); Neutrophils # (Auto) 6.0 Thou/mm3 (1.8-7.7); Neutrophils % (Auto) 71 % (37-80); Nucleated Red Blood Cell # 0.00 Thou/mm3 (0.00-0.00); Nucleated Red Blood Cell % 0 /100 WBC (0); Platelet Count 372 Thou/mm3 (140-440); RDW Standard Deviation 38.0 fL (36.4-46.3); Red Blood Count 4.83 Miln/mm3 (4.00-5.20); White Blood Count 8.4 Thou/mm3 (3.6-11.0)
[2025-10-06 06:38] LABS: Alanine Aminotransferase 19 U/L (10-49); Albumin, Serum 4.0 gm/dL (3.4-4.8); Albumin/Globulin Ratio 1.3 (1.2-2.2); Alkaline Phosphatase 69 U/L (46-116); Anion Gap 11 (7-16); Aspartate Amino Transferase 26 U/L (0-34); BUN/Creatinine Ratio 26 Ratio (12-20); Bilirubin,Total 0.5 mg/dL (0.3-1.2); Blood Urea Nitrogen 21 mg/dL (9-23); Calcium 9.6 mg/dL (8.3-10.6); Calcium (Corrected) 9.6 mg/dL (8.5-10.1); Carbon Dioxide 27.5 mMol/L (20.0-31.0); Chloride 101 mMol/L (98-107); Creatinine (Component) 0.8 mg/dL (0.6-1.3); Estimated Creatinine Clearance 53.0 mL/min (>60); Globulin 3.2 gm/dL (2.3-3.5); Glucose 109 mg/dL (74-106); Osmolality,Calculated 281 (275-295); Potassium 4.0 mMol/L (3.4-5.1); Sodium 139 mMol/L (136-145); Total Protein 7.2 gm/dL (5.7-8.2); eGFR > 60 See Note
--- NOTE | 2025-10-06 07:45 | PD.RESPRO ---
Documentation for date of: 10/06/25 Subjective Subjective Interval history: No acute events overnight.?Patient seen and examined at bedside this AM.?Vitals were reviewed, labs ordered for tomorrow.?No further complaints at this time. Patient is still pending letter of agreement with [facility]. Review of systems otherwise negative except what is mentioned above. Exam Vital Signs Temp Pulse Resp BP Pulse Ox O2 Del Method FiO2 97.2 F 91 16 125/74 94 L Room Air 97 10/07/25 04:00 10/07/25 04:00 10/07/25 04:00 10/07/25 04:00 10/07/25 04:00 10/07/25 04:00 10/04/25 16:00 Narrative Exam General: Awake. HEENT: Normocephalic, atraumatic, mucous membranes moist. Heart: Regular rate and rhythm, no murmurs. Lungs: Clear to auscultation with no wheezing or crackles. Abdomen: Soft, nondistended, nontender, positive bowel sounds. ?No guarding or rebound tenderness. Neurologic: Right-sided extraocular movements impaired with left-side intact. Alert and oriented x3, 0/5 power on right side Extremities: No edema. Skin: No rash or ecchymoses. Objective Labs 10/07/25 05:30 10/07/25 05:30 Labs: Laboratory Results - last 24 hr 10/07/25 05:30 WBC 7.3 RBC 4.60 Hgb 11.6 L Hct 36.5 MCV 79 L MCH 25.2 MCHC 31.8 RDW Std Deviation 37.3 Plt Count 297 D Neut % (Auto) 65 Lymph % (Auto) 19 [place] % (Auto) 9 Eos % (Auto) 6 Baso % (Auto) 1 Neut # (Auto) 4.8 Lymph # (Auto) 1.4 [place] # (Auto) 0.6 Eos # (Auto) 0.5 Baso # (Auto) 0.1 Immature Gran # (Auto) 0.02 H Absolute Nucleated RBC 0.00 Immature Gran % 0 Nucleated RBC % 0 Sodium 137 Potassium 4.0 Chloride 101 Carbon Dioxide 26.0 Anion Gap 10 BUN 17 Creatinine 0.8 Estim Creat Clear Calc 52.3 L eGFR > 60 BUN/Creatinine Ratio 21 H Glucose 111 H Calculated Osmolality 276 Calcium 9.8 Corrected Calcium 9.9 Phosphorus 3.9 Magnesium 1.9 Albumin 3.9 ABG Interpretation ABG results: 09/23/25 10:36 ABG pH 7.40 ABG pCO2 38 ABG pO2 67 L ABG HCO3 23 ABG O2 Saturation 93 ABG Base Excess -1 Quality Measures Quality Measures stroke Suspected type of Stroke: Non Acute Last known well (date): 09/22/25 Last known well (time): 22:00 Tenecteplase given: Reason(s) Tenecteplase not given: Outside the time window not given Rehab services: PT evaluation ordered and Speech Language Pathology eval ordered VTE Prophylaxis: not indicated Antithrombotic by day 2:: not indicated (describe) Statin ordered: <75 y/o high intensity dose Anticoagulation ordered for A-fib or flutter (current or hx): not indicated Advance care planning discussed with:: patient Assessment & Plan Assessment Current Active Medications: Generic Name Dose Route Start Last Admin Trade Name Freq PRN Reason Stop Dose Admin Acetaminophen 650 mg 09/23/25 11:41 09/29/25 13:59 Acetaminophen 325 Mg Tablet PO 10/23/25 11:40 650 mg Q6H PRN Administration Fever >100.3 or Mild Pain 1-3 Acetaminophen 650 mg 09/23/25 11:41 Acetaminophen Supp 650 Mg Supp ME 10/23/25 11:40 Q6H PRN PAIN SCALE 1-3 (mild Protocol Aspirin 81 mg 09/29/25 09:00 10/06/25 09:06 Aspirin 81 Mg Chew PO 10/24/25 08:59 81 mg QDAY BRITNEY Administration Atorvastatin Calcium 80 mg 09/23/25 21:00 10/06/25 21:06 Atorvastatin Calcium 20 Mg Tablet PO 10/23/25 20:59 80 mg HS BRITNEY Administration Clopidogrel Bisulfate 75 mg 09/24/25 09:00 10/06/25 09:06 Clopidogrel Bisulfate 75 Mg Tablet PO 10/24/25 08:59 75 mg QDAY BRITNEY Administration Dextrose 25 ml 09/23/25 15:33 Dextrose 50%-Water Inj 50 Ml Syringe IV 10/23/25 15:32 Q15MIN PRN BG 50-70 responsive npo pt Dextrose 50 ml 09/23/25 15:33 Dextrose 50%-Water Inj 50 Ml Syringe IV 10/23/25 15:32 Q15MIN PRN BG <50 OR BG <70 & pt unresponsive Escitalopram Oxalate 10 mg 11/02/25 15:15 10/06/25 09:06 Escitalopram Oxalate 10 Mg Tablet PO 10/25/25 15:14 10 mg QDAY BRITNEY Administration Glucagon 1 mg 09/23/25 15:33 Glucagon Inj 1 Mg Vial IM Q15MIN PRN BG <70, and no IV access Heparin Sodium (Porcine) 5,000 unit 09/23/25 14:00 10/07/25 05:52 Heparin Sod Inj 5000 Unit/Ml Vial SC 10/07/25 13:59 5,000 unit Q8HR BRITNEY Administration Insulin Human Lispro 0 unit 09/23/25 17:00 10/06/25 21:25 Insulin Lispro (Admelog) 1 Unit/0.01 Ml Unit SC 10/23/25 16:59 Not Given ACHS BRITNEY Protocol Labetalol HCl 10 mg 09/23/25 11:47 Labetalol Inj 5 Mg/Ml Vial 20 Ml IVP 10/23/25 11:46 Q4HR PRN Hypertension Losartan Potassium 50 mg 09/30/25 09:00 Losartan Potassium 25 Mg Tablet PO 10/30/25 08:59 On Hold: 09/30/25 09:00 QDAY BRITNEY Ondansetron HCl 4 mg 09/23/25 09:13 Ondansetron Inj 2 Mg/Ml Inj 2 Ml IVP 10/23/25 09:12 Q4HR PRN NAUSEA OR VOMITING Pantoprazole Sodium 40 mg 09/24/25 09:00 10/06/25 09:06 Pantoprazole 40 Mg Tablet PO 10/24/25 08:59 40 mg QDAY BRITNEY Administration Polyethylene Glycol 17 gm 09/29/25 16:45 10/06/25 09:06 Polyethylene Glycol 17 Gm Packet PO 10/29/25 16:44 Not Given QDAY BRITNEY Sennosides 1 tab 09/23/25 11:41 Senna Tablet PO 10/23/25 11:40 QDAY PRN constipation Protocol Tamsulosin HCl 0.4 mg 09/30/25 17:15 10/06/25 09:06 Tamsulosin Hcl 0.4 Mg Capsule PO 10/30/25 17:14 0.4 mg QDAY BRITNEY Administration Plan Patient is a [id number] 70-year-old female with a PMH of insulin-independent T2DM noncompliant on metformin, hypertension noncompliant on lisinopril, hyperlipidemia noncompliant on simvastatin, and chronic dizziness on dimenhydrinate who presented on 09/23 with a chief complaint of generalized weakness and altered mental status. Patient was admitted for the work-up and management of stroke-like symptoms (no TNK administered), hypertensive emergency, anion gap metabolic acidosis with lactic acidosis, and UTI. In-house Neurology (Dr. Martinez) was consulted and is closely following the case. 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 #Right-sided hemiplegia Per documentation by Teleneurology, patient initially presented with slurred speech and left facial droop (NIHSS 3) but this has seemed to resolve by time of this justowriter operator's interview (NIHSS 0) Per daughter, patient also seemed to have new right-sided weakness that is not present at baseline 09/23 CT head and CTA head/neck both negative for signs of hemorrhage or LVO TNK not administered as LKWT was 8 PM and patient was outside eligible time window Given PO Plavix loading dose of 300 mg x 1 in the ED UA suggestive of possible UTI although patient denies any urinary symptoms Dx: -HgbA1c, 10.0 -Lipid panel, showed cholesterol 254, LDL 173 -TSH 0.87 and free T4 1.40 (both WNL) -09/23 echocardiogram was negative for PFO or ASD -09/23 stroke protocol brain MRI showed 15 mm acute infarct of the left brainstem at the pontine level as well as significant cerebral arterial sclerotic disease Rx: -PO aspirin 81 mg daily and PO Plavix 75 mg daily -PO atorvastatin 80 mg daily -Continued physical therapy -Continued speech therapy -Neurology (Dr. Martinez) is following the patient #Hypertensive emergency #Primary hypertension, uncontrolled due to medication non-compliance 09/23 admission BP 199/76 with signs of end-organ damage including altered mental status and lactic acidosis Patient apparently has home medication of lisinopril but has not taken it since about a year ago, so patient was non-compliance Initially patient needed losartan 50 mg BID and amlodipine 10 mg once daily Rx: -Stopped all the antihypertensives as blood pressure is within normal limits without the medications #Tjs-rtakmpy-pkscnxpue diabetes mellitus type 2 09/23 admission blood glucose of 300, BHB 0.3 (WNL) Patient reportedly has T2DM but has not taken her home metformin since about a year ago Dx: -HgbA1c this admission 10.0 Rx: -Continue with insulin sliding scale #Hyperlipidemia Self-reported history with home medication of simvastatin Dx: -Lipid panel as above Rx: -PO atorvastatin 80 mg qHS #Major depressive disorder Daughter reports that patient became non-compliant with her medications after the of her about a year ago Dx: -PHQ-9 Assessment Score: 17 Rx: -Lexapro 10 mg PO qD Hospital Management: Disposition: Admitted to [facility] for stroke protocol, hypertensive emergency, pending insurance authorization for SNF placement Diet: Carbohydrate Consistent GI Prophylaxis: PO Protonix 40 mg daily Bowel Prophylaxis: PO Senna 1 tab daily as needed DVT Prophylaxis: Subcutaneous heparin 5000 units every 8 hours CODE STATUS: Full Code Patient plan of care was discussed with the attending physician, Dr. Encinas. Susanne Muhammad, PGY-3 Attending Provider Attestation/Addendum I have examined the patient, reviewed labs and imaging findings, discussed the case with the resident(s), and reviewed entered orders. I agree with the plan of care as outlined in this note, with these additional summaries/recommendations: Patient & family seen at bedside. No acute overnight events. Patient has no new symptoms to report today. She is pending insurance authorization for placement. Continue DAPT and high intensity statin. Continue to control vascular risk factors. Continue insulin sliding scale for diabetes mellitus type 2. Target blood sugar of 140-180 while hospitalized. Patient updated on the plan and agreement. All questions answered to satisfaction. Dr. Paulo MD
[2025-10-06 08:00] VITALS: BP 114/71; PULSE 81; PULSE 86; RESP 17; TEMP 36.1; O2SAT 94
[2025-10-06] MEDS: ESCITALOPRAM OXALATE 10 MG TABLET PO (09:06)
[2025-10-06] MEDS: ASPIRIN 81 MG CHEW PO (09:06)
[2025-10-06] MEDS: PANTOPRAZOLE 40 MG TABLET PO (09:06)
[2025-10-06] MEDS: TAMSULOSIN HCL 0.4 MG CAPSULE PO (09:06)
[2025-10-06] MEDS: CLOPIDOGREL BISULFATE 75 MG TABLET PO (09:06)
--- NOTE | 2025-10-06 11:51 | PC.SS ---
Addendum entered by Denise Gamez 10/07/25 10:40: SS updated dtr [place] [phone] in regards to SHARLENE being denied. Plan to DC pt home with HH and DME(hospital bed, wheelchair, and 3in1 BSC. SS reached out to [employer] and spoke to Noa. SS inquired on contracted HH agencies for pt, SS provided email to Noa as well as call back number for her to send agencies that pt can be connected to, pending response. Addendum entered by Denise Gamez 10/07/25 10:22: SS received a call from Jackelyn at [facility], per Jackelyn [employer] denied SHARLENE and it is too expensive. SS attempted to reach [facility] [phone], no answer. Will reattempt later. Original Note: SS spoke to Jackelyn at [facility] who contacted pt insurance in regard to SHARLENE per [employer] the SHARLENE is in process and they are hopeful for a resolution today.
[2025-10-06 12:00] VITALS: BP 136/75; PULSE 89; PULSE 90; RESP 16; TEMP 36.5; O2SAT 93
[2025-10-06 16:00] VITALS: BP 118/69; PULSE 85; PULSE 89; RESP 19; TEMP 36.4; O2SAT 95
[2025-10-06 20:00] VITALS: BP 125/70; PULSE 84; PULSE 87; RESP 19; TEMP 36.2; O2SAT 94
[2025-10-06] MEDS: ATORVASTATIN CALCIUM 20 MG TABLET 80 MG PO (21:06)
--- NOTE | 2025-10-06 22:29 | VVPN_ITS ---
Telemedicine visit statement This visit was conducted with the use of interactive audio and video telecommunications system that permits real time communication between the patient and the provider. Patient's verbal consent for virtual visit was obtained on 10/06/25 at 2229. Documentation for date of: 10/06/25 Subjective Subjective Interval history: Patient is in telemetry with her family at the bedside. Her mental status is significantly improved to baseline and is able to communicate fluently with family members. Continue to have right dense hemiplegia. Virtual exam Vital Signs Temp Pulse Resp BP Pulse Ox O2 Del Method FiO2 97.1 F 87 19 125/70 94 L Room Air 97 10/06/25 20:00 10/06/25 20:00 10/06/25 20:00 10/06/25 20:00 10/06/25 20:00 10/06/25 20:00 10/04/25 16:00 Objective Labs 10/07/25 05:30 10/07/25 05:30 Labs: Laboratory Results - last 24 hr 10/06/25 04:23 WBC 8.4 RBC 4.83 Hgb 12.0 Hct 38.7 MCV 80 MCH 24.8 L MCHC 31.0 RDW Std Deviation 38.0 Plt Count 372 D Neut % (Auto) 71 Lymph % (Auto) 14 [place] % (Auto) 7 Eos % (Auto) 7 Baso % (Auto) 1 Neut # (Auto) 6.0 Lymph # (Auto) 1.2 [place] # (Auto) 0.6 Eos # (Auto) 0.6 H Baso # (Auto) 0.1 Immature Gran # (Auto) 0.03 H Absolute Nucleated RBC 0.00 Immature Gran % 0 Nucleated RBC % 0 Sodium 139 Potassium 4.0 Chloride 101 Carbon Dioxide 27.5 Anion Gap 11 BUN 21 Creatinine 0.8 Estim Creat Clear Calc 53.0 L eGFR > 60 BUN/Creatinine Ratio 26 H Glucose 109 H Calculated Osmolality 281 Calcium 9.6 Corrected Calcium 9.6 Total Bilirubin 0.5 AST 26 ALT 19 Alkaline Phosphatase 69 Total Protein 7.2 Albumin 4.0 Globulin 3.2 Albumin/Globulin Ratio 1.3 ABG Interpretation ABG results: 09/23/25 10:36 ABG pH 7.40 ABG pCO2 38 ABG pO2 67 L ABG HCO3 23 ABG O2 Saturation 93 ABG Base Excess -1 Assessment & Plan Problem List (1) Acute ischemic cerebrovascular accident (CVA) involving left middle cerebral artery territory: Status: Acute Assessment and plan: Language deficit improving and dense right hemiplegia. Continue with physical therapy and therapy and speech therapy continue with aspirin Plavix and statin Patient is stable for discharge home as the insurance has not approved rehab placement (2) Hypertension: Status: Chronic Assessment and plan: Continue to monitor closely as the blood pressure is going down. May not need to be on antihypertensives
[2025-10-07] VITALS: BP 116/68; PULSE 86; PULSE 88; RESP 19; TEMP 36.6; O2SAT 94
[2025-10-07 04:00] VITALS: BP 125/74; PULSE 77; PULSE 91; RESP 16; TEMP 36.2; O2SAT 94
[2025-10-07] MEDS: HEPARIN SOD INJ 5000 UNIT/ML VIAL SC (05:52)
[2025-10-07 06:00] VITALS: BMI 24.4
[2025-10-07 06:38] LABS: Basophils # (Auto) 0.1 Thou/mm3 (0.0-0.2); Basophils % (Auto) 1 % (0-2.5); Eosinophils # (Auto) 0.5 Thou/mm3 (0.0-0.5); Eosinophils % (Auto) 6 % (0-10); Hematocrit 36.5 % (36.0-46.0); Hemoglobin 11.6 g/dL (12.0-16.0); Immature Granulocytes Auto 0.02 Thou/mm3 (0.00-0.00); Lymphocytes # (Auto) 1.4 Thou/mm3 (1.0-4.8); Lymphocytes % (Auto) 19 % (10-50); Mean Corpuscular HGB Conc 31.8 g/dl (31.0-37.0); Mean Corpuscular Hemoglobin 25.2 pg (25.0-35.0); Mean Corpuscular Volume 79 fL (80-100); Monocytes # (Auto) 0.6 Thou/mm3 (0.0-0.8); Monocytes % (Auto) 9 % (0-12); Neutrophils # (Auto) 4.8 Thou/mm3 (1.8-7.7); Neutrophils % (Auto) 65 % (37-80); Nucleated Red Blood Cell # 0.00 Thou/mm3 (0.00-0.00); Nucleated Red Blood Cell % 0 /100 WBC (0); Platelet Count 297 Thou/mm3 (140-440); RDW Standard Deviation 37.3 fL (36.4-46.3); Red Blood Count 4.60 Miln/mm3 (4.00-5.20); White Blood Count 7.3 Thou/mm3 (3.6-11.0)
[2025-10-07 06:44] LABS: Albumin, Serum 3.9 gm/dL (3.4-4.8); Anion Gap 10 (7-16); BUN/Creatinine Ratio 21 Ratio (12-20); Blood Urea Nitrogen 17 mg/dL (9-23); Calcium 9.8 mg/dL (8.3-10.6); Calcium (Corrected) 9.9 mg/dL (8.5-10.1); Carbon Dioxide 26.0 mMol/L (20.0-31.0); Chloride 101 mMol/L (98-107); Creatinine (Component) 0.8 mg/dL (0.6-1.3); Estimated Creatinine Clearance 52.3 mL/min (>60); Glucose 111 mg/dL (74-106); Magnesium 1.9 mg/dL (1.6-2.6); Osmolality,Calculated 276 (275-295); Phosphorous 3.9 mg/dL (2.4-5.1); Potassium 4.0 mMol/L (3.4-5.1); Sodium 137 mMol/L (136-145); eGFR > 60 See Note
[2025-10-07 08:00] VITALS: BP 107/63; PULSE 81; PULSE 86; RESP 17; TEMP 36.1; O2SAT 95
[2025-10-07] MEDS: PANTOPRAZOLE 40 MG TABLET PO (10:04)
[2025-10-07] MEDS: CLOPIDOGREL BISULFATE 75 MG TABLET PO (10:04)
[2025-10-07] MEDS: ASPIRIN 81 MG CHEW PO (10:04)
[2025-10-07] MEDS: TAMSULOSIN HCL 0.4 MG CAPSULE PO (10:04)
[2025-10-07] MEDS: ESCITALOPRAM OXALATE 10 MG TABLET PO (10:04)
[2025-10-07] MEDS: POLYETHYLENE GLYCOL 17 GM PACKET PO (10:04)
--- NOTE | 2025-10-07 10:50 | PC.SS ---
SS reached out to Team A-and spoke to Dr. Bates. SS in formed Team pt SHARLENE was denied at [facility]. SS updated family as well. SS received a call from Noa from [facility] and there are two agencies willing to work with [facility]. [facility] [phone] & [facility] [phone] SS updated Team on need for HH orders. SS also updated Transfer [facility] on agencies willing to work with us for pt.
[2025-10-07] MEDS: INSULIN LISPRO (AdmeLOG) 1 UNIT/0.01 ML UNIT SC (11:45)
[2025-10-07 12:00] VITALS: BP 114/72; PULSE 84; RESP 17; TEMP 36.6; O2SAT 95
--- NOTE | 2025-10-07 12:48 | PC.SS ---
Addendum entered by Denise Gamez 10/07/25 13:35: Transport set on will call with [facility], all paperwork received by [facility]. If after hours UC to call [phone] to setup ETA Original Note: SS reached out to [facility] who stated pt is inactive for transport services. SS contacted [facility] and they have no gurney transport for the day. SHARLENE granted with [facility]
--- NOTE | 2025-10-07 14:32 | ESDS_ITS ---
Planned Discharge Date 10/07/25 DS: Providers Provider Date of admission: 09/23/25 11:41 Primary care physician: Feliberto Garibay PA-C Admitting Provider: Jarad Melara MD Attending Provider on Admission: Kaleb Bates MD Consults: 09/23/25 09:13 Consult to Neurology / Tele-Neurology Routine Comment: Consulting Provider: [facility] 09/23/25 12:34 Referral Speech Therapy Stat Comment: 09/23/25 16:03 Referral Speech Therapy Routine Comment: stroke r/o 09/23/25 16:04 Referral Physical Therapy Routine Comment: stroke r/o Physician Instructions: Instructions: history of generalized R sided weakness and diabetes 09/24/25 08:11 Consult to Neurology / Tele-Neurology Routine Comment: CVA R/O Consulting Provider: Parker Martinez 09/24/25 09:00 Referral Registered Dietitian Routine Comment: HgbA1c 10.0 Attending Provider on DC: Kaleb Bates MD Discharging Provider: Susanne Muhammad MD DS: Diagnosis Problem List Completed Was Problem List Reviewed/Reconciled?: Yes Hospital Course Hospital Course Hospital course: Reason for hospitalization: Acute ischemic stroke, left pontine infarct Patient is a Laos-speaking 70-year-old female with a past medical history of insulin-independent type 2 diabetes non-compliant on metformin, hypertension non-compliant on lisinopril, hyperlipidemia non-compliant on simvastatin, and chronic dizziness on dimenhydrinate who presented on 09/23/2025 with a chief complaint of generalized weakness and altered mental status. Patient had new right-sided weakness and slurred speech. Patient was admitted for the work-up and management of stroke-like symptoms, hypertensive emergency, anion gap metabolic acidosis with lactic acidosis, and UTI. No tenecteplase was administered due to last known well time at 8 pm. In-house neurology was consulted and recommended continuation of dual anti-platelet therapy for 21 days total, followed by aspirin alone. Start atorvastatin nightly. Patient completed a course of IV antibiotics. HgbA1c this admission 10.0 and patient was treated with sliding scale insulin. Patient was also started on escitalopram due to depression as she has lost her 1 year ago and not been caring for herself. Patient worked with physical therapy and speech therapy daily. Patient was cleared for discharge however there were significant barriers to discharge due to difficulty with insurance authorization with [facility]. Eventually authorization was obtained however letter of agreement with [facility] was not approved. Therefore patient was discharged home with home health. Discharge Recommendations: -Follow up with PCP within 1 week of discharge -Take aspirin 81 mg (blood thinner) once daily for stroke prevention -Take clopidogrel 75 mg (blood thinner) once daily for 7 more days for stroke prevention and then stop -Take atorvastatin 40 mg once nightly for cholesterol -Take escitalopram 10 mg once daily for depression -Take metformin 1000 mg twice daily for diabetes and follow up with PCP for adjustment of medications -Check blood sugars on regular basis -Take sennosides 8.6 mg once daily as needed for constipation -Continue rest of medications as previously prescribed -Return to the ED or call EMS if symptoms return and/or worsen. Hospital Diagnoses: 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 #Right-sided hemiplegia #Hypertensive emergency #Primary hypertension, uncontrolled due to medication non-compliance #Rsk-nxwlrbj-zxwavywlw diabetes mellitus type 2 #Hyperlipidemia #Major depressive disorder Patient plan of care was discussed with the attending physician, Dr. Bates. Susanne Muhammad, PGY-3 Time Spent with Patient Time attestation: Total time spent providing and/or coordinating discharge services: Time spent: Greater than 30 minutes Home Health Home Health Referral Orders: 10/07/25 14:21 Home Health Referral Routine Reason For Exam: Physical therapy Home-Bound The patient must either because of illness or injury, need the aid of supportive devices such as crutches, canes, wheelchairs, and walkers; the use of special transportation; or the assistance of another person in order to leave their place of residence; OR have a condition such that leaving his or her home is medically contraindicated. In addition, the patient also meets the following criteria: patient is normally unable to leave the home and leaving home requires considerable taxing effort. Addendum to Home Health Certification Practitioner's Certification: I certify that the patient has been under my care in the hospital and the care of attending physician (see below). We had a pdxz-sb-[id number] encounter on (see date below). My clinical findings indicate that the patient is home bound per the above criteria and the Home Health Services noted in these orders are medically necessary. The primary reason for the ldkc-uj-like encounter is related to the fact that the patient requires home health services. Date Certifying Uveu-gs-Vzgz Physician Encounter: 09/23/25 Physician's Name who will Assume Oversight for Services: Vinh gonzalez Physician's Phone No.who will Assume Oversight for Service: TELECOMMUNICATOR SUPERVISOR - Community Resources: Yes PT to Evaluate: Yes PT to evaluate and provide a treatmnet plan to increase patient's mobility and strength. Wound Care: No IV Therapy: No RN Safety Evaluation: Yes RN to evaluate and create a plan of care that will produce positive outcomes. Palliative Treatment: No Palliative treatment and evaluate the need for hospice. Home Health Aide - Personal Care: Yes Home Health Aide to assist with any ADL's. Exam Vital Signs Temp Pulse Resp BP Pulse Ox O2 Del Method FiO2 97.8 F 84 17 114/72 95 Room Air 97 10/07/25 12:00 10/07/25 12:00 10/07/25 12:00 10/07/25 12:00 10/07/25 12:00 10/07/25 12:00 10/07/25 12:00 Narrative Exam General: Awake. HEENT: Normocephalic, atraumatic, mucous membranes moist. Heart: Regular rate and rhythm, no murmurs. Lungs: Clear to auscultation with no wheezing or crackles. Abdomen: Soft, nondistended, nontender, positive bowel sounds. ?No guarding or rebound tenderness. Neurologic: Right-sided extraocular movements impaired with left-side intact. Alert and oriented x3, 0/5 power on right side Extremities: No edema. Skin: No rash or ecchymoses. Discharge Plan Plan Patient Disposition: Home w/HOME HEALTH Patient condition on transfer: Stable Care Plan Goals: Discharge Recommendations: -Follow up with PCP within 1 week of discharge -Take aspirin 81 mg (blood thinner) once daily for stroke prevention -Take clopidogrel 75 mg (blood thinner) once daily for 7 more days for stroke prevention and then stop -Take atorvastatin 40 mg once nightly for cholesterol -Take escitalopram 10 mg once daily for depression -Take metformin 1000 mg twice daily for diabetes and follow up with PCP for adjustment of medications -Check blood sugars on regular basis -Take sennosides 8.6 mg once daily as needed for constipation -Continue rest of medications as previously prescribed -Return to the ED or call EMS if symptoms return and/or worsen. Prescriptions/Referrals Prescriptions/Med Rec: New aspirin [Children's Aspirin] 81 mg Tablet,Chewable 81 mg PO QDAY 30 Days Qty: 30 0RF sennosides [Senna Lax] 8.6 mg Tablet 8.6 mg PO QDAY PRN (Reason: constipation) 30 Days Qty: 30 0RF escitalopram oxalate 10 mg Tablet 10 mg PO QDAY 30 Days Qty: 30 0RF metformin [Fortamet] 1,000 mg tablet extended release 24hr 1,000 mg PO BID Qty: 30 3RF atorvastatin [Lipitor] 40 mg tablet 40 mg PO HS Qty: 30 2RF clopidogrel 75 mg tablet 75 mg PO QDAY Qty: 7 0RF (DME) blood-glucose meter [Contour Next EZ Meter] Kit See Rx Instructions .Route Qty: 1 0RF Rx Instructions: As directed (DME) Advanced Gluc Meter Test Strip Strip See Rx Instructions .Route Qty: 50 2RF Rx Instructions: As directed Referrals: Vinh Garibay PA-C [Primary Care Provider, Medical] Patient/Caregiver Discharge Instructions Discharge Activity: as per physical therapy and activity as tolerated Education Materials: Controlling High Blood Pressure, Diabetes and Heart Disease, What Is Ischemic Stroke?, Stroke: Resources and Support, Your Heart Is at Risk, Blood Pressure Check Steps Print Language: Mohawk Stand Alone Forms: Violet Award Info., Patient Portal Info Letter Discharge Order Discharge Orders: Discharge (Routine); Ordered 10/07/25 Ordered By: Susanne Muhammad Quality Discharge Quality Measures stroke Statin ordered >75 y/o:moderate or high intensity dose on DC: no Statin ordered <75 y/o: high intensity dose on DC: yes Statin not ordered due to:: not indicated Anticoagulation ordered for A-fib or flutter (current or hx): not indicated Antithrombotic ordered on DC: not indicated (describe) Attestestation Attestation I have examined the patient, reviewed labs and imaging findings, discussed the case with the resident(s), and reviewed entered orders. I agree with the plan of care as outlined in this note. Time Spent: [address] Paulo MD
[2025-10-07 16:00] VITALS: BP 105/64; PULSE 88; RESP 18; TEMP 36.1; O2SAT 94
--- NOTE | 2025-10-09 10:59 | PC.CC ---
Addendum entered by Robi Castro RN 10/09/25 12:25: dorinda palacios accepted and booked, SOC 10/11 Original Note: HH ref sent out on 10/07/25 to [facility] and [facility]. both declined patient. Resent HH ref to other HH agencies, waiting for response
== END 2025-10-07 18:50 | disposition home health service (06) | DRG 65 ==
LOC: SERX 11:17 → SERHOLD 12:50 → S2NX 20:44 → S3NX 09-30 23:02
PROVIDERS: Student in an Organized Health Care Education/Training Program; Admitting Provider Student in an Organized Health Care Education/Training Program; Emergency Provider Emergency Medicine; PCP Physician Assistant; Visit Provider Student in an Organized Health Care Education/Training Program
DX: I63.29 Cerebral infarction due to unspecified occlusion or stenosis of other precerebral arteries (principal); E87.20 Acidosis, unspecified; I16.1 Hypertensive emergency; N39.0 Urinary tract infection, site not specified; G81.91 Hemiplegia, unspecified affecting right dominant side; N17.9 Acute kidney failure, unspecified; M06.9 Rheumatoid arthritis, unspecified; I10 Essential (primary) hypertension; Z79.84 Long term (current) use of oral hypoglycemic drugs; E78.5 Hyperlipidemia, unspecified; R29.810 Facial weakness; R47.1 Dysarthria and anarthria; F32.9 Major depressive disorder, single episode, unspecified; B96.20 Unspecified Escherichia coli [E. coli] as the cause of diseases classified elsewhere; E11.65 Type 2 diabetes mellitus with hyperglycemia; R29.703 NIHSS score 3; Z91.148 Patient's other noncompliance with medication regimen for other reason; Z63.4 Disappearance and death of family member; Z79.02 Long term (current) use of antithrombotics/antiplatelets; Z79.4 Long term (current) use of insulin; Z79.82 Long term (current) use of aspirin; Z79.899 Other long term (current) drug therapy
CPT/HCPCS: 36415; 36600; 70450; 70496; 70498; 70544; 71045; 80053; 80061; 80069; 80307; 80320; 81001; 82010; 82803; 83036; 83605; 83735; 83880; 84100; 84145; 84439; 84443; 84484; 85025; 85610; 85652; 85730; 86140; 87040; 87077; 87086; 87186; 87502; 87811; 92507; 92523; 92526; 92610; 93005; 93225; 93306; 96361; 96365; 96372; 96374; 97162; 99285; A4649; J0696; J1644; J1815; J3475; J3490; J7030; J7120; Q9967; A9270; G0480; J1920